=== PATIENT | male | born 1955 | race Caucasian/White ===

== ENCOUNTER 2016-06-24 17:38 | Inpatient (IN) | payer MEDICARE ==
[~2016-06-24] VITALS: Ht 172.7 cm; Wt 100.0 kg
[2016-06-24] VITALS (40 sets, daily range): BP systolic 102–204; BP diastolic 60–106; PULSE 104–118; RESP 12–23
[2016-06-24] MEDS ORDERED: ONDANSETRON 4 MG INJ IV STA (17:45)
[2016-06-24] MEDS ORDERED: morphine 4 MG/ML VIAL IV STA (17:45)
[2016-06-24] MEDS ORDERED: ONDANSETRON 4 MG INJ ONE ×2 (17:48→18:13)
[2016-06-24] MEDS ORDERED: morphine 4 MG/ML VIAL ONE (17:48)
[2016-06-24] MEDS ORDERED: LIDOCAINE 1% (MDV) 20 ML INJ ONE (17:56)
[2016-06-24] MEDS ORDERED: MIDAZOLAM 1 MG/ML 2 ML INJ ONE (17:56)
[2016-06-24] MEDS ORDERED: IODIXANOL LOCM 50 ML BTL ONE (17:56)
[2016-06-24] MEDS ORDERED: IODIXANOL LOCM 100 ML BTL ONE (17:56)
[2016-06-24] MEDS ORDERED: FENTAnyl 50 MCG/ML VIAL ONE ×2 (17:56→19:01)
[2016-06-24] MEDS ORDERED: NITROGLYCERIN (IC) 100 MCG/ML INJ ONE ×2 (17:56→18:45)
[2016-06-24] MEDS ORDERED: VERAPAMIL 5 MG INJ ONE (17:56)
[2016-06-24] MEDS ORDERED: HEPARIN 1000 UNITS/ML 10 ML INJ ONE (17:56)
[2016-06-24] MEDS ORDERED: NITR0.4T6 SL (17:56)
[2016-06-24] MEDS ORDERED: niCARdipine 25 MG INJ ONE (17:56)
[2016-06-24 17:57] LABS: ADD SCAN DIFF NO
[2016-06-24] MEDS ORDERED: RIVA20TA PO (17:57)
[2016-06-24] MEDS ORDERED: DIAZ10TA4 PO (17:57)
[2016-06-24 17:58] LABS: BASOPHIL # 0.1 10^3/ul (0.0-0.1); BASOPHILS % 0.5 % (0.0-2.0); EOSINOPHILS # 0.4 10^3/ul (0.0-0.5); EOSINOPHILS % 4.2 % (0.0-7.0); HEMATOCRIT 51.8 % (42.0-52.0); HEMOGLOBIN 17.9 g/dl (14.0-18.0); LYMPHOCYTES # 3.5 10^3/ul (0.8-2.9); LYMPHOCYTES % 34.3 % (15.0-51.0); MEAN CORPUSCULAR HEMOGLOBIN 31.9 pg (29.0-33.0); MEAN CORPUSCULAR HGB CONC 34.6 g/dl (32.0-37.0); MEAN CORPUSCULAR VOLUME 92.2 fl (82.0-101.0); MEAN PLATELET VOLUME 10.8 fl (7.4-10.4); MONOCYTE # 0.7 10^3/ul (0.3-0.9); MONOCYTES % 6.4 % (0.0-11.0); NEUTROPHIL # 5.5 10^3/ul (1.6-7.5); NEUTROPHILS % 53.9 % (39.0-77.0); PLATELET COUNT 155 10^3/UL (140-415); RED BLOOD COUNT 5.62 10^6/ul (4.70-6.10); RED CELL DISTRIBUTION WIDTH 13.2 % (11.5-14.5); WHITE BLOOD COUNT 10.2 10^3/ul (4.8-10.8)
[2016-06-24] MEDS ORDERED: ICOS1CAP PO (17:58)
[2016-06-24] MEDS ORDERED: SITA100T8 PO (17:58)
--- NOTE | 2016-06-24 17:58 | RADRPT ---
PROCEDURE: XR Chest. CLINICAL INDICATION: 60-year-old male with chest pain. TECHNIQUE: Single frontal view of the chest was obtained COMPARISON: No. FINDINGS: The soft tissues are normal. The bony elements are normal. The heart is mildly enlarged. A defibr illator pad is noted over the sternum. The cardiomediastinal silhouette and hilar structures are no rmal. The pulmonary vasculature is normal. There is a left-sided aorta. No acute infiltrate is noted . The costophrenic angles are normal. IMPRESSION: 1. Mild cardiomegaly. 2. No evidence of an acute infiltrate or pleural effusion. RPTAT:AAJJ Physician Martin Date Time Electronically viewed and signed by Kris Farooq Physician on 06/24/2016 17:57 /
[2016-06-24] MEDS ORDERED: CANA1TAB8 PO (17:59)
[2016-06-24] MEDS ORDERED: TRAM-40 PO (18:00)
[2016-06-24] MEDS ORDERED: ZOLP10TA5 PO (18:00)
[2016-06-24] MEDS ORDERED: HEPARIN 1000 UNITS/ML 10 ML INJ IV ONE (18:00)
[2016-06-24] MEDS ORDERED: DULA1.5P SQ (18:03)
--- NOTE | 2016-06-24 18:04 | ERA ---
ER Documentation Chief Complaint Date/Time DATE: 06/24/16 TIME: 17:56 Chief Complaint CP 1.5HR ONSET R SIDE AND SUBSTERNAL RADIATING TO BOTH ARMS. STEMI IN FIELD HPI The patient is a 60-year-old male, presenting to the ER because of severe right- sided and substernal chest pain radiating to bilateral extremities about an hour half prior to arrival. The pain is 10/10, he had minimal response with aspirin 325 mg p.o. and 3 nitroglycerin sprays by the director social service. He denies similar symptoms previously, denies headache, neck pain, abdominal pain, vomiting, dysuria, diarrhea. He smokes a pack a day Past medical history: Diabetes mellitus, hypertension Past surgical history: None ROS All systems reviewed and are negative except as per history of present illness. Physical Exam Vitals Vital Signs Date Time Temp Pulse Resp B/P Pulse Ox O2 Delivery O2 Flow Rate FiO2 06/24/16 17:53 106 17 161/98 100 Nasal Cannula 2.0 06/24/16 17:52 Nasal Cannula 2 06/24/16 17:44 97.9 92 21 172/97 94 Physical Exam Const: No acute distress. Head: Atraumatic. Eyes: Normal Conjunctiva. ENT: Normal External Ears, Nose and Mouth. Neck: Full range of motion. No meningismus. Resp: Clear to auscultation bilaterally. Cardio: Regular rate and rhythm, no murmurs. Abd: Soft, non distended, normal bowel sounds, non tender. Skin: No petechiae or rashes. Back: No midline or flank tenderness. Ext: No cyanosis, or edema. Neur: Awake and alert. No focal deficit Psych: Normal Mood and Affect. Results 24 hrs Current Medications Medications (Trade) Dose Ordered Sig/Mick Route PRN Reason Start Time Stop Time Status Last Admin Dose Admin Morphine Sulfate (morphine) 4 mg ONCE STAT IV 06/24/16 17:45 06/24/16 17:48 DC 06/24/16 17:53 Ondansetron HCl (Zofran Inj) 4 mg ONCE STAT IV 06/24/16 17:45 06/24/16 17:48 DC 06/24/16 17:53 Heparin Sodium (Porcine) (Heparin (1000 Units/ml)) 5,000 unit ONCE ONCE IV 06/24/16 18:00 4/3/17 18:01 Procedures/MDM EKG: Read by emergency physician at 1741 hrs. Rate/Rhythm: Normal Sinus Rhythm 97 beats/min QRS, ST, T-waves: Acute anterior ST elevation, right bundle branch block, no PVC Impression: Abnormal EKG MEDICAL MAKING DECISION: The patient is 60-year-old male, presenting with acute anterior OR. He was treated with with heparin 4000 units IV per cardiology, morphine 4 mg IV for pain, Zofran 4mg IV for nausea with good response. The differential diagnoses considered include but are not limited to acute coronary syndrome, acute myocardial infarction, pericarditis, pulmonary embolism, aortic dissection, pneumonia, pleural effusion, pneumothorax, GERD, chest wall pain. As soon as I receive the EKG from EMS, I activated a code STEMI immediately As soon as I review our EKG in the ER, Dr. Leon arrived. I discussed the patient and the EKG finding with him. He evaluated the patient and took the patient to to the Residential Driver immediately Critical Time Time: 35 minutes excluding all billable procedures. Treatments/Evaluations: Close monitoring and treatment of unstable vital signs, cardiorespiratory, and neurologic status, while maintaining tight balance of fluid, respiratory, and cardiac interventions. Departure Diagnosis: Primary Impression: Acute OR Condition: Critical Comments I discussed the findings with the patient. I discussed the patient with the on- call hospitalist Dr. Mendieta at 6 pm who was made aware of the lab, the treatment, the patient condition and my discussion with the clinical informatics physician. The patient is admitted to ICU after the Residential Driver LEILA FORMAN MD Jun 24, 2016 18:04
[2016-06-24 18:13] LABS: CHLORIDE 101 mmol/L (97-110)
[2016-06-24 18:14] LABS: POTASSIUM 4.5 mmol/L (3.5-5.1); SODIUM 141 mmol/L (135-144)
[2016-06-24 18:16] LABS: PARTIAL THROMBOPLASTIN TIME 24.5 Sec (25.0-35.0)
[2016-06-24 18:17] LABS: ANION GAP 22 (8-16); BLOOD UREA NITROGEN 36 mg/dl (7-20); CALCIUM 9.3 mg/dl (8.4-10.2); CARBON DIOXIDE 23 mmol/L (21-31); CREATININE 1.75 mg/dl (0.61-1.24); GLUCOSE 138 mg/dl (70-220)
[2016-06-24] MEDS ORDERED: BIVALIRUDIN 250MG /NS 50 ML 0 ML IVPB ONE (18:25)
[2016-06-24 18:34] LABS: INR 1.08; PT RATIO 1.1
[2016-06-24 18:35] LABS: TROPONIN-I < 0.012 ng/ml (0.00-0.12)
[2016-06-24] MEDS ORDERED: BIVALIRUDIN 250MG /NS 50 ML 50 ML IVPB ONE ×2 (18:52)
[2016-06-24] MEDS ORDERED: TICAGRELOR 90 MG TABLET ONE (19:05)
--- NOTE | 2016-06-24 19:18 | CONS ---
DATE OF ADMISSION: 06/24/2016 DATE OF CONSULTATION: 06/24/2016 REASON FOR CONSULTATION: ST elevation myocardial infarction. CHIEF COMPLAINT: Chest pain, all body pain. HISTORY OF PRESENT ILLNESS: Thank you for this referral. History obtained from the patient, radha james with Dr. Villarreal, emergency room physician. This is an unfortunate 60-year-old gentleman with his tory of diabetes, hypertension, dyslipidemia, smoker who apparently has had dyspnea on exertion for limited activity for a while now. The patient was brought in by paramedics after he complained of c hest pain, mostly on the right side, but also on the left side. He can take a deep breath. He will have difficulty breathing. EKG shows right bundle branch block with anterior ST elevation consiste nt with ST elevation myocardial infarction. Code STEMI was called. The patient at this point appea rs to be in severe distress and pain. PAST MEDICAL HISTORY: Diabetes, hypertension, dyslipidemia, history of smoking. SOCIAL HISTORY: The patient actively smokes. FAMILY HISTORY: Denies any history of early coronary artery disease. ALLERGIES: NO REPORTED ALLERGIES. MEDICATIONS: As per medication reconciliation sheet, personally reviewed. PHYSICAL EXAMINATION: VITAL SIGNS: Temperature 97.9, heart rate 106, blood pressure 160/90, respiration rate of 17, satur ating 100%. HEENT: Normocephalic, atraumatic. Appears to be in distress. EYES: Pupils are equal. CARDIOVASCULAR: Regular rate and rhythm. Systolic murmur. PULMONARY: Anteriorly mild rhonchi at the base. GASTROINTESTINAL: Soft, nontender. EXTREMITIES: Trivial edema. NEUROLOGIC: Awake and alert. PSYCHIATRIC: Calm, pleasant. LABORATORY: EKG shows sinus rhythm with right bundle branch block. ST elevation anteriorly consist ent with anterior ST elevation myocardial infarction. Reciprocal changes noted inferiorly. Laborat ory still pending. Chest x-ray has been done. This still pending, though. ASSESSMENT AND PLAN: 1. Acute anterior ST elevation myocardial infarction. 2. Diabetes. 3. Hypertension. 4. Dyslipidemia. 5. Smoker. 6. Abnormal EKG. RECOMMENDATIONS: The patient has been given aspirin, heparin. He will be taken emergently for the left heart catheterization, coronary angiography, possible percutaneous coronary intervention. ____ the procedure discussed with the patient including risk of infection, bleeding complication, NM, st roke, arrhythmia, , renal failure, and vascular complications, etc., discussed with the patient . The patient has consented to procedure. The patient was taken for immediate cardiac catheterizat ion. Further recommendation after the labs are back and more information is available. Dictated By: VANESSA GAVIN/SMITH Conf#: [id number] DID#: [id number]
[2016-06-24] MEDS ORDERED: SOD CHLORIDE 0.9% 1,000 ML IV SCH (19:25)
[2016-06-24] MEDS ORDERED: OXYCODONE/ACETAMINOPHEN (5/325) TAB PO PRN ×2 (19:30)
[2016-06-24] MEDS ORDERED: morphine 2 MG INJ IV PRN (19:30)
[2016-06-24] MEDS ORDERED: ACETYLCYSTEINE 600 MG CAP PO ONE (19:30)
[2016-06-24] MEDS ORDERED: BIVALIRUDIN 250 MG in SOD CHLORIDE 0.9% 500 ML IV SCH (19:30)
[2016-06-24] MEDS ORDERED: ACETAMINOPHEN 325 MG TAB PO PRN (19:30)
[2016-06-24] MEDS ORDERED: ACETYLCYSTEINE INJ 1,200 MG in SOD CHLORIDE 0.9% 100 ML IV SCH (20:00)
[2016-06-24] MEDS ORDERED: INSULIN LISPRO 100 UNIT/ML VIAL SC SCH (20:21)
--- NOTE | 2016-06-24 20:24 | HP ---
Date/Time of Note Date/Time of Note DATE: 06/24/16 TIME: 20:23 Assessment/Plan VTE Prophylaxis VTE Prophylaxis Intervention: contraindicated VTE Contraindication Reason: bleeding Lines/Catheters IV Catheter Type (from Nrsg): Saline Lock Assessment/Plan Assessment/Plan 1) Angina due to CAD causing STEMI while in the ER, s/p immediate Cardiac Catheterization, in the ICU, doing well - Already Admitted - formal procedure skipped as patient required emergent intervention - All Cardiac related orders have been and will be done by Dr. Leon 2) Diabetes Mellitus Type 2 - Accu-Chek Q 4 hours while NPO then change to Q AC and HS when taking POs. - Mild Insulin Sliding Scale - HgbA1c HPI/ROS Admit Date/Time Admit Date/Time 06/24/161953 Hx of Present Illness I was asked to admit patient by his glue cook, Dr. Leon, and to specifically manage his sugars becasue everything elsw was taken care of. Patient presented to the ED with CHest Pain. He was found to have a STEMI and was immediately taken to the Senior Publications Specialist. Per Dr. Leon, it was very difficult to get the LAD Open and he will take the patient back tomorrrow to do the right side. He is now in the ICU after spending time in the PACU. Patient denies any significant chest pain and the RNs are trying to pull out the catheter sheath in his right groin. Before they did, I reminded him that patient is supposed to go back to the Senior Publications Specialist tomorrow, but they agree that they have orders to remove the sheath. Currently patient is afebrile. He ahuja minimal nausea. No vomiting. Minimal chest discomfort. No radiation of pain. No sweating. No palpitations. No cough, wheeze or shortnessof breath. No AHUJA, ear pain/pressure, sore throat. No abdominal pain or diarrhea. No lower extremity swelling. No rash or itch. No blood in stool or urine. No black-colored stool. ROS See HPI for ROS PMH/Family/Social Past Medical History Medical History: diabetes, high cholesterol, hypertension Past Surgical History Heart Catheterization earlier today Social History Smoking Status: Current every day smoker Drug Use: none Exam/Review of Systems Vital Signs Vitals Vital Signs Date Time Temp Pulse Resp B/P Pulse Ox O2 Delivery O2 Flow Rate FiO2 06/24/16 17:53 106 17 161/98 100 Nasal Cannula 2.0 06/24/16 17:44 97.9 Exam Exam General: Laying flat in bed while the RNs work on removing the groin catheter sheath. He is awake and alert and in no acute distress, other than occasional pain while the catheter is worked on. Eyes: Sclera White, EOMI HENT: Normocephalic/Atraumatic, External Ears/Nose Normal, Moist Mucus Membranes Neck: Supple, Trachea Midline Cardiovascular: Normal Rate, Regular Rhythm, Normal S1 and S2, No Murmur, No Extra Sounds. Radial pulse +2/4. No pedal Edema. Pulmonary: Clear to Auscultation Bilaterally, Normal Respiratory Effort, No Rales, Rhonchi or Wheezes Gastrointestinal: Normoactive Bowel Sounds, Soft, Non-Tender/Non-Distended, No Hepatosplenomegaly Appreciated, No Pulsatile Masses Urogenital: Deferred Musculoskeletal: Normal Muscle Bulk and Tone Neurological: CN II - XII Grossly Intact, Non-Focal, Speech Normal Integumentary: Normal Moisture and Temperature, Good Turgor, No Jaundice, No Rash Lymphatic: No Cervical Lymphadenopathy Psychiatric: Appropriate Mood and Affect, Good Eye Contact Labs Result Diagram: 06/24/16 1746 06/24/16 1746 Medications Medications Current Medications Acetylcysteine/ Sodium Chloride (Acetadote/NS) 106 ml @ 0 mls/hr ONCE IV ; Start 06/24/16 at 20:00; Stop 06/24/16 at 23:33 Miscellaneous Information (* Miscellaneous Pharmacy Order) Hold all Metformin ... ONCE XX ; Start 06/24/16 at 19:30; Stop 06/26/16 at 19:29 Aspirin (Halfprin) 81 mg DAILY PO ; Start 06/25/16 at 09:00 Ticagrelor 90 mg 90 mg BID PO ; Start 06/24/16 at 21:00 Nitroglycerin/ Dextrose (Nitroglycerin 50 Mg/D5W (Pmx)) 250 ml @ 1.5 mls/hr TITRATE IV ; Start 06/24/16 at 19:30 Acetaminophen (Tylenol Tab) 650 mg Q4H PRN PO NON-CARDIAC PAIN LEVEL 1-3; Start 06/24/16 at 19:30 Oxycodone/ Acetaminophen (Percocet (5/ 325)) 1 tab Q4H PRN PO REPORTED NON- CARDIAC PAIN 4-7; Start 06/24/16 at 19:30 Oxycodone/ Acetaminophen (Percocet (5/ 325)) 2 tab Q4H PRN PO REPORTED NON- CARDIAC PAIN 4-7; Start 06/24/16 at 19:30 Morphine Sulfate (morphine) 1 mg Q1H PRN IV PAIN NOT RELIEVED BY OTHERS; Start 06/24/16 at 19:30 Docusate Sodium (Colace) 100 mg BID PO ; Start 06/24/16 at 21:00 Famotidine (Pepcid) 20 mg DAILY PO ; Start 06/25/16 at 09:00 Carvedilol (Coreg) 6.25 mg BID PO ; Start 06/24/16 at 21:00 Atorvastatin Calcium 80 mg 80 mg DAILY@21 PO ; Start 06/24/16 at 21:00 Sodium Chloride (NS) 1,000 ml @ 100 mls/hr Q10H IV ; Start 06/24/16 at 19:25; Stop 06/25/16 at 05:24 Acetylcysteine (Nac) 600 mg BID PO ; Start 06/25/16 at 09:00 DAVID RODAS DO Jun 24, 2016 20:24
[2016-06-24] MEDS: NITROGLYCERIN 50 MG/D5W (PMX) 250 ML IV SCH (22:01)
[2016-06-24] MEDS: ATORVASTATIN 80 MG TAB PO SCH (22:09)
[2016-06-24] MEDS: DOCUSATE SODIUM 100 MG CAP PO SCH (22:09)
[2016-06-24] MEDS: TICAGRELOR 90 MG TABLET PO SCH (22:33)
[2016-06-24] MEDS ORDERED: HEPARIN 5,000 UNIT/0.5 ML VIAL ONE (23:00)
[2016-06-24] MEDS ORDERED: GLUCOSE GEL 15 GRAM TUBE BUCCAL PRN (23:30)
[2016-06-24] MEDS ORDERED: GLUCOSE GEL 15 GRAM TUBE PO PRN ×2 (23:30)
[2016-06-24] MEDS ORDERED: DEXTROSE 50% 50 ML SYRINGE IV PRN ×2 (23:30)
[2016-06-24] MEDS ORDERED: GLUCAGON 1 MG INJ IM PRN (23:30)
[2016-06-25] VITALS (70 sets, daily range): BP systolic 78–151; BP diastolic 47–90; PULSE 78–106; RESP 7–33; Ht 172.7 cm; Wt 100.0 kg
[2016-06-25] MEDS ORDERED: BIVALIRUDIN 250MG /NS 50 ML 50 ML IVPB SCH
[2016-06-25 00:17] LABS: ALBUMIN 3.6 g/dl (3.3-4.9)
[2016-06-25 00:20] LABS: ALBUMIN/GLOBULIN RATIO 1.5; BILIRUBIN,INDIRECT 0.2 mg/dl (0-1.1); BILIRUBIN,TOTAL 0.2 mg/dl (0.2-1.3)
[2016-06-25 00:21] LABS: CALCIUM 8.4 mg/dl (8.4-10.2); CREATININE 1.36 mg/dl (0.61-1.24); POTASSIUM 5.6 mmol/L (3.5-5.1)
[2016-06-25] MEDS: ACCUCHECK AT 2AM (Patients on SS coverage) XX SCH (02:00)
[2016-06-25 06:24] LABS: ADD SCAN DIFF NO
[2016-06-25 06:36] LABS: BASOPHILS % 0.3 % (0.0-2.0); EOSINOPHILS # 0.3 10^3/ul (0.0-0.5); EOSINOPHILS % 2.1 % (0.0-7.0); HEMATOCRIT 48.7 % (42.0-52.0); HEMOGLOBIN 16.3 g/dl (14.0-18.0); LYMPHOCYTES # 2.6 10^3/ul (0.8-2.9); LYMPHOCYTES % 20.5 % (15.0-51.0); MEAN CORPUSCULAR HEMOGLOBIN 30.7 pg (29.0-33.0); MEAN CORPUSCULAR HGB CONC 33.5 g/dl (32.0-37.0); MEAN CORPUSCULAR VOLUME 91.7 fl (82.0-101.0); MEAN PLATELET VOLUME 10.4 fl (7.4-10.4); NEUTROPHIL # 8.6 10^3/ul (1.6-7.5); NEUTROPHILS % 68.4 % (39.0-77.0); PLATELET COUNT 147 10^3/UL (140-415); RED BLOOD COUNT 5.31 10^6/ul (4.70-6.10); RED CELL DISTRIBUTION WIDTH 13.3 % (11.5-14.5); WHITE BLOOD COUNT 12.5 10^3/ul (4.8-10.8)
[2016-06-25 06:53] LABS: INR 1.17; PT RATIO 1.2
--- NOTE | 2016-06-25 07:24 | PN ---
DATE: 06/24/2016 FOLLOWUP PROGRESS NOTE SUBJECTIVE: The patient was seen and examined again, has had oozing and bleeding into the right nader e sheath. Blood pressure is elevated. Nitroglycerin drip has not been started yet. Discussed with the staff in the PACU. Laboratories were reviewed. Discussed with the physicians and conducted ap pendectomy and Dr. Adair and Dr. Ludmila Ramos. RECOMMENDATIONS: We will continue with the ICU care. Will stop the ____ given his groin oozing. I V fluid will be continued. Follow the renal function and plan for possible cardiac catheterization and PCI of the right coronary artery tomorrow. Continue with aspirin and Brilinta. Dictated By: VANESSA GAVIN/SMITH Conf#: [id number] DID#: [id number]
--- NOTE | 2016-06-25 07:25 | SP ---
DATE OF PROCEDURE: 06/24/2016 NAME OF PROCEDURE: 1. Emergent left heart catheterization and selective right and left coronary angiography. 2. Emergent and extremely complicated PTCA and stenting of the ostial left anterior descending simran ry from 100% occlusion to no significant residual stenosis. 3. Right femoral angiogram. SURGEON: Vanessa Leon MD INDICATIONS: A 60-year-old gentleman who presented with anterior ST elevation myocardial infarction . FINDINGS: 1. Left main coronary is a very large vessel. It trifurcates to LAD, ramus intermediate, and left circumflex artery. It has about 20% distal stenosis. 2. Left anterior descending artery is 100% occlusion ostially/proximally. After successful PTCA an d stenting of this lesion, there was no significant residual stenosis left. LAD was a small vessel relatively. 3. Ramus intermedius is a large vessel and appeared to be normal. 4. Left circumflex artery is a moderate sized vessel and has about 50% stenosis. 5. Right coronary is a very large, dominant vessel. Has focal area of about 99% mid lesion with stein ziness consistent with intraluminal clot there. REMY 3 flow was noted though. 6. LVEDP is 22. DESCRIPTION OF PROCEDURE: Written informed consent was discussed with the patient in detail. The p atient brought in to vp lab emergently and placed in supine position. Right and left groin preppe d and draped in sterile fashion. Right groin was anesthetized ____ 7-Turkmen sheath was placed in th e right femoral artery. JR4 catheter was advanced and engaged in the right coronary artery and jayant ogram was obtained. JL4 and 7-Turkmen guiding catheter was advanced and engaged in the left main cor onary artery. Angiogram was obtained. I decided to proceed and perform PCI of the LAD, which appea red to be based on the EKG culprit lesion. I tried multiple wires to advance and cross it. It was a very sharp angulation on the LAD and would not allow the wire to pass into the lesion and, once in to the lesion because of the angulation of the wire, could not allow to pass across the lesion. I u sed multiple different wires including with and without balloon support as well. Even [employer] huong ter support could not cross the lesion. Had to change the guide to a 7-Turkmen ____ L4 guiding huong ter was advanced in the left main coronary artery. Different wires were used. Finally, I used the ____ catheter and a Agricultural Equipment Salesperson wire and, with great difficulty, was able to cross into the lesion and acr oss the lesion into the distal LAD. Then, a 2.5 x 8 mm balloon was used across the lesion, inflated . ____ tried to advance, however, since the wire had been bent, it could not get across over the wi re. It was removed and a 2.5 x 12 mm balloon was placed across the lesion, multiple inflated. Cherri paulson, I used a 3.0 x 20 mm drug-eluting stent, which was placed across the ostium of the left anterio r descending artery into the proximal LAD and deployed it at 14 atmospheres. Final angiogram was ob tained, which showed REMY 3 flow, no evidence of dissection, no significant residual stenosis. The patient was severely in pain. His pain also significantly improved. We decided to perform PCI of t he RCA at a later time, since it was not felt to be the culprit lesion and the patient's creatinine is elevated. Catheter and Glidewire were removed. Pigtail was advanced in the left main, hemodynam ics recorded. Pullback aortic pressure was measured. Right femoral angiogram was performed. IMMEDIATE COMPLICATIONS: None. CONCLUSION: A very complicated, but successful percutaneous transluminal coronary angioplasty and s tenting of the ostium of left anterior descending artery from 100% occlusion to no significant resid ual stenosis. RECOMMENDATIONS: Aggressive medical therapy. PCI of the RCA tomorrow if the renal function remains stable. ICU care overnight. Dictated By: VANESSA LEON MD AV/SMITH Conf#: [id number] DID#: [id number] CC: LEILA FORMAN MD;*EndCC*
[2016-06-25] MEDS: INSULIN ASPART [NOVOLOG] 3 ML PEN SC SCH ×5 (07:35→21:00)
[2016-06-25 07:43] LABS: ALBUMIN 3.5 g/dl (3.3-4.9)
[2016-06-25 07:44] LABS: POTASSIUM 4.9 mmol/L (3.5-5.1)
[2016-06-25 07:47] LABS: ALBUMIN/GLOBULIN RATIO 1.66; BILIRUBIN,INDIRECT 0.5 mg/dl (0-1.1); BILIRUBIN,TOTAL 0.5 mg/dl (0.2-1.3); CALCIUM 8.5 mg/dl (8.4-10.2); CREATININE 1.42 mg/dl (0.61-1.24); TOTAL PROTEIN 5.6 g/dl (6.1-8.1)
[2016-06-25 07:48] LABS: CHOL/HDL RATIO 3.2 RATIO
[2016-06-25 08:14] LABS: THYROID STIMULATING HORMONE 1.75 MIU/L (0.465-4.680)
[2016-06-25] MEDS: ACETYLCYSTEINE 600 MG CAP PO SCH ×2 (08:49→21:14)
[2016-06-25] MEDS: ASPIRIN (EC) 81 MG TAB PO SCH (08:50)
[2016-06-25] MEDS: DOCUSATE SODIUM 100 MG CAP PO SCH ×2 (08:50→21:14)
[2016-06-25] MEDS: FAMOTIDINE 20 MG TAB PO SCH (08:50)
[2016-06-25] MEDS: TICAGRELOR 90 MG TABLET PO SCH ×2 (08:56→23:05)
--- NOTE | 2016-06-25 09:04 | CONS ---
DATE OF ADMISSION: 06/25/2016 DATE OF CONSULTATION: TYPE OF CONSULTATION: Nephrology. REASON FOR CONSULTATION: Acute kidney injury, possible CKD. REQUESTING PHYSICIAN: Dr. Leon HISTORY OF PRESENT ILLNESS: This is a 60-year-old male with a past medical history of hypertension, history of diabetes, history of tobacco use who presents to [facility] with chest pain, substernal with radiating to both arms. The patient upon admission stated that he has had se paz right-sided chest pain for about half an hour, 12/31. Patient was brought in by paramedics, wa s given nitroglycerin, aspirin; however, denied any significant improvement. [facility] an E[facility] which showed acute anterior NH. Patient had a code STEMI initiated, was take n to cardiac catheterization lab by Dr. Leon where the patient had a PCI to the LAD. The patient was subsequently brought over to the intensive care unit for observation. Overnight, the patient stein d been clinically stable without any hemoptysis, hemetemesis, hematochezia. In terms of the patient's renal history, the patient states he has no prior history of kidney diseas e, or previous history of acute kidney injury. The patient is a diabetic, hypertensive, does smoke. The patient has not had any recent blood work done. The patient denies any recent NSAID use. Diallo es any recent antibiotic exposure. Denies any rashes. Denies any frothy urine. Denies any hemopty sis, hematochezia. PAST MEDICAL HISTORY: As stated above, history of hypertension, diabetes. PAST SURGICAL HISTORY: The patient has had back surgery. ALLERGIES: NO KNOWN DRUG ALLERGIES. SOCIAL HISTORY: Positive 1 pack a day smoking. FAMILY HISTORY: Noncontributory. MEDICATIONS: The patient's medications have been reviewed. REVIEW OF SYSTEMS: A 14-point review of systems was conducted. Pertinent positives in HPI, otherwi se negative. PHYSICAL EXAMINATION: VITAL SIGNS: Blood pressure is 146/87, respiration is 25, pulse 89, temperature 98.4. HEENT: Head is normocephalic. NECK: Supple. HEART: Regular rate. LUNGS: Show diminished breath sounds at the base. ABDOMEN: Soft, nontender to palpation without rebound or guarding. EXTREMITIES: Negative for clubbing, cyanosis, no edema. The patient has a brace in his right lower extremity. DERMATOLOGIC: No rashes. MUSCULOSKELETAL: No joint effusions. NEUROLOGIC: No change in exam. LABORATORY DATA: From June 24 shows sodium 133, potassium of 5.6, BUN 33, creatinine 1.36. Troponi n 165. White count 12.5, hemoglobin 6.3, hematocrit 48.7, platelet count 147. IMAGING STUDIES: The patient's chest x-ray shows no evidence of infiltrate or effusion. ASSESSMENT AND PLAN: This is a 60-year-old male who presents with: 1. Nonoliguric acute kidney injury with unknown baseline creatinine. Possible chronic kidney disea se. Etiology of current acute kidney injury appears to be hemodynamics. Patient's renal function h as improved with hydration. Plan at this point is to check a UA with microanalysis. Will check uri ne electrolytes, calculate a FENa, will check a renal ultrasound to evaluate renal parenchyma. The p ossibility of contrast-associated nephropathy is a consideration, as patient has undergone cardiac c atheterization and will likely require a repeat catheterization. Given the necessity of interventio n would continue current treatment plan of IV hydration. Continue Mucomyst. Otherwise, optimize he modynamics. Would defer any ANDRÉS inhibitor at this time. We will continue supportive care, renally dose all meds. 2. Possible chronic kidney disease. The patient is currently in acute kidney injury as stated daniel e. Plan is to check a renal ultrasound. We will quantify the patient's proteinuria. Will check PT H, vitamin D25 level. Otherwise, continue current treatment plan as stated above. 3. Hyperkalemia, etiology may be spurious versus acute kidney injury. We will repeat a renal panel and monitor, continue the patient on a renal diet. 4. Hyponatremia secondary to acute kidney injury causing decreased free water urinary excretion. W ill continue to monitor. Follow up renal panel. Limit free water intake. 5. Acute anterior ST elevation NH. The patient is status post cardiac catheterization with PCI to LAD. Pending repeat cardiac catheterization. We will continue current medical management and follo w up with cardiology. 6. Diabetes. Continue Accu-Cheks and sliding scale. 7. Hypertension. Blood pressure currently controlled. Continue current blood pressure regimen. 8. Dyslipidemia. Continue statin therapy. 9. History of tobacco use. Consider nicotine patch. 10. Leukocytosis, likely secondary to stress demargination. Thank you, Dr. Leon, for this very interesting consult. It will be a pleasure to follow patient w ith you throughout the hospital course. Dictated By: FROYLAN VALADEZ/SMITH Conf#: [id number] DID#: [id number]
--- NOTE | 2016-06-25 09:07 | RADRPT ---
PROCEDURE: Retroperitoneal US. CLINICAL INDICATION: Renal insufficiency TECHNIQUE: Multiple sonographic images of the kidneys and retroperitoneum were obtained. The imag es were reviewed on a PACS workstation. COMPARISON: No prior studies are available for comparison. FINDINGS: The kidneys are normal in size, contour, cortical thickness and cortical echogenicity. The right kidney measures 12 cm. The left kidney measures 12.2 cm. No kidney stones are visualized. There is no evidence for hydronephrosis. The urinary bladder is normal. The prostate measures 3.9 x 3.9 cm. RPTAT: AA IMPRESSION: Unremarkable retroperitoneal ultrasound. .Edgar Christie MD, MD Date Time Electronically viewed and signed by .Edgar Christie MD, MD on 06/25/2016 09:07 .S/
--- NOTE | 2016-06-25 11:17 | RADRPT ---
Echocardiogram Report Patient Name: MARTA FLEMING Gender: Male Date: 1955 Study Date: 25-Jun-2016 Payroll Processor: Caitlin Hoyt RDCS Location: 116 Ref. Physician: VANESSA LEON Quality: Adequate Procedures: Transthoracic echocardiogram with complete 2D, M-Mode, and doppler examination. Indications: STEMI. 2D/M Mode Doppler Measurement Value Normal Ranges Measurement Value Normal Ranges LVIDd 2D 5.3 3.5 - 5.6 cm AV Peak Silver 1.0 m/sec LVIDs 2D 3.6 2.1 - 4.1 cm AV Peak PG 3.9 mmHg LVPWd 2D 0.8 0.6 - 1.1 cm LVOT Peak Silver 0.9 m/sec IVSd 2D 1.0 0.6 - 1.1 cm LVOT Peak PG 3.2 mmHg AoR Diam 2D 3.2 2.0 - 3.7 cm MV E Peak Silver 0.7 m/sec EDV 2D 134.3 cm3 MV A Peak Silver 0.9 m/sec ESV 2D 46.6 cm3 MV E/A 0.8 LA Dimen 2D 3.4 2.3 - 4.0 cm MV Decel Time 184 msec MV Decel [place] 4 MV E/A 0.8 Findings Left Ventricle: Normal left ventricular cavity size. Normal left ventricular wall thickness. Ejection fraction is visually estimated at 40 45 %. Tissue Doppler/Mitral Doppler indices are consistent with impaired relaxation (Stage I diastolic dysfunction). Multiple segmental wall motion abnormalities. These segments of the LV are hypokinetic mid anterior segment, anterior apex segment, anteroseptum mid segment, apex and apical septum. Right Ventricle: Normal right ventricular size. Normal right ventricular systolic function. Left Atrium: The left atrium is normal in size. Right Atrium: The right atrium is normal in size. Mitral Valve: Mitral valve leaflets appear mildly thickened. Mild mitral annular calcification. Trace mitral regurgitation. Aortic Valve: Normal appearance of the aortic valve. No significant aortic stenosis or insufficiency. Tricuspid Valve: Normal appearance of the tricuspid valve. Unable to obtain RVSP due to minimal presence of tricuspid regurgitation. Pulmonic Valve: Pulmonic valve not well visualized. Pericardium: Normal pericardium with no significant pericardial effusion. Aorta: Normal aortic root. IVC: Normal size and normal respiratory collapse consistent with normal right atrial pressure. Conclusions 1.Normal left ventricular cavity size. Normal left ventricular wall thickness. Ejection fraction is visually estimated at 40 -45 %. Tissue Doppler/Mitral Doppler indices are consistent with impaired relaxation (Stage I diastolic dysfunction). Multiple segmental wall motion abnormalities. These segments of the LV are hypokinetic mid anterior segment, anterior apex segment, anteroseptum mid segment, apex. and apical septum. 2.The left atrium is normal in size. 3.Mitral valve leaflets appear mildly thickened. Mild mitral annular calcification. Trace mitral regurgitation. 4.Normal appearance of the aortic valve. No significant aortic stenosis or insufficiency. 5.Normal appearance of the tricuspid valve. Unable to obtain RVSP due to minimal presence of tricuspid regurgitation. 6.Normal size and normal respiratory collapse consistent with normal right atrial pressure. Electronically Signed By: Vanessa Leon 25-Jun-2016 11:16:22 -0700 Patient Name: MARTA FLEMING Study Date: 25-Jun-2016 [id number]
--- NOTE | 2016-06-25 12:45 | PN ---
DATE: 06/25/2016 CARDIOLOGY FOLLOWUP PROGRESS NOTE SUBJECTIVE: Discussed with the staff, the patient with no more chest pain or pressure. Denies any groin pain. Had some oozing yesterday, has resolved now. The sheath has been pulled. She denies a ny palpitation to me. Feeling better. She has mild shortness of breath and cough. MEDICATIONS: Reviewed. PHYSICAL EXAMINATION: VITAL SIGNS: Temperature 97.9, heart rate of 89, blood pressure 134/83, respiration rate of 24, sat urating 97%. HEENT: Normocephalic, atraumatic. Obese gentleman. Pupils are equal. CARDIOVASCULAR: Regular rate and rhythm, systolic murmur. PULMONARY: Mild rhonchi. GASTROINTESTINAL: Obese, soft, nontender. EXTREMITIES: With trivial edema. NEUROLOGIC: Awake, alert x3. PSYCHIATRIC: Calm, pleasant. VASCULAR: Right femoral with no hematoma, no bleeding. Small ecchymosis noted. PSYCHIATRIC: Calm, pleasant. LABORATORY: WBC of 12.5, hemoglobin 16.3, platelets of 147. Sodium 136, potassium 4.9, BUN of 30, creatinine 1.42, glucose 148. Troponin of 149. CK of 47, MB fraction of 103. BNP of 1330. TSH is 1.7. LDL is 87, HDL 48, cholesterol 158. Echocardiogram was also personally reviewed, which showed ejection fraction about 40% to 45%. ASSESSMENT AND PLAN: 1. Acute anterior ST elevation myocardial infarction. 2. Diabetes. 3. Hypertension. 4. Dyslipidemia. 5. Tobacco abuse. 6. Multivessel coronary artery disease. 7. Renal insufficiency. RECOMMENDATIONS: None of the renal function has improved. We will proceed with a cardiac catheteri zation and PCI of the right coronary artery which appeared to show significant stenosis. Discussed with the patient. Patient has consented to procedure. Medication including aspirin, Brilinta, Muco myst will be continued. Nitroglycerin drip will be continued. Coreg will be continued. Statin zayra l be continued. Diabetic management as per internal medicine. Renal input is appreciated. Mucomys t will be continued for now. Continue with the ICU care for now. Dictated By: VANESSA DÍAZ MD AV/SMITH Conf#: [id number] DID#: [id number] CC: FROYLAN GOULD DO;*EndCC*
[2016-06-25 13:37] LABS: ADD UMIC YES; URINE BILIRUBIN (Dip) NEGATIVE (NEGATIVE); URINE BLOOD (Dip) 1+ (NEGATIVE); URINE COLOR LT. YELLOW (YELLOW); URINE GLUCOSE (Dip) >=1000 % (NEGATIVE); URINE KETONES (Dip) NEGATIVE (NEGATIVE); URINE LEUKOCYTE ESTERASE (Dip) NEGATIVE (NEGATIVE); URINE NITRITE (Dip) NEGATIVE (NEGATIVE); URINE TOTAL PROTEIN (Dip) TRACE (NEGATIVE); URINE UROBILINOGEN (Dip) 0.2 E.U./dL (0.1-1.0)
[2016-06-25 13:54] LABS: URINE RBCS 0-2 /HPF (0)
[2016-06-25 13:57] LABS: PROTEIN URINE 50.3 mg/dl (0.0-9.9)
[2016-06-25] MEDS ORDERED: SOD CHLORIDE 0.9% 1,000 ML IV SCH ×2 (14:00→17:58)
[2016-06-25] MEDS: NITROGLYCERIN 50 MG/D5W (PMX) 250 ML IV SCH (14:02)
[2016-06-25] MEDS ORDERED: IODIXANOL LOCM 100 ML BTL ONE (17:11)
[2016-06-25] MEDS ORDERED: IODIXANOL LOCM 50 ML BTL ONE (17:11)
[2016-06-25] MEDS ORDERED: FENTAnyl 50 MCG/ML VIAL ONE ×2 (17:11→17:23)
[2016-06-25] MEDS ORDERED: LIDOCAINE 1% (MDV) 20 ML INJ ONE (17:11)
[2016-06-25] MEDS ORDERED: MIDAZOLAM 1 MG/ML 2 ML INJ ONE (17:11)
[2016-06-25] MEDS ORDERED: VERAPAMIL 5 MG INJ ONE (17:11)
[2016-06-25] MEDS ORDERED: HEPARIN 1000 UNITS/ML 10 ML INJ ONE (17:11)
[2016-06-25] MEDS ORDERED: NITROGLYCERIN (IC) 100 MCG/ML INJ ONE (17:12)
[2016-06-25] MEDS ORDERED: SOD CHLORIDE 0.9% 500 ML ONE (17:12)
[2016-06-25] MEDS: ATORVASTATIN 80 MG TAB PO SCH (21:14)
[2016-06-26] VITALS (24 sets, daily range): BP systolic 86–162; BP diastolic 30–105; PULSE 79–108; RESP 17–34
[2016-06-26] MEDS: ACCUCHECK AT 2AM (Patients on SS coverage) XX SCH (02:32)
[2016-06-26] MEDS ORDERED: SOD CHLORIDE 0.9% 1,000 ML IV SCH (03:00)
[2016-06-26 04:58] LABS: ADD SCAN DIFF NO
[2016-06-26 05:05] LABS: BASOPHIL # 0.1 10^3/ul (0.0-0.1); BASOPHILS % 0.5 % (0.0-2.0); EOSINOPHILS # 0.6 10^3/ul (0.0-0.5); EOSINOPHILS % 5.1 % (0.0-7.0); HEMATOCRIT 46.9 % (42.0-52.0); HEMOGLOBIN 15.7 g/dl (14.0-18.0); LYMPHOCYTES # 2.7 10^3/ul (0.8-2.9); LYMPHOCYTES % 24.7 % (15.0-51.0); MEAN CORPUSCULAR HGB CONC 33.5 g/dl (32.0-37.0); MEAN CORPUSCULAR VOLUME 92.5 fl (82.0-101.0); MEAN PLATELET VOLUME 10.7 fl (7.4-10.4); MONOCYTE # 0.9 10^3/ul (0.3-0.9); MONOCYTES % 8.4 % (0.0-11.0); NEUTROPHIL # 6.6 10^3/ul (1.6-7.5); NEUTROPHILS % 60.7 % (39.0-77.0); PLATELET COUNT 134 10^3/UL (140-415); RED BLOOD COUNT 5.07 10^6/ul (4.70-6.10); RED CELL DISTRIBUTION WIDTH 13.3 % (11.5-14.5); WHITE BLOOD COUNT 10.9 10^3/ul (4.8-10.8)
[2016-06-26 05:25] LABS: ALBUMIN 3.7 g/dl (3.3-4.9)
[2016-06-26 05:26] LABS: MAGNESIUM 1.9 mg/dl (1.7-2.5); PHOSPHORUS 3.2 mg/dl (2.5-4.9); POTASSIUM 4.7 mmol/L (3.5-5.1)
[2016-06-26 05:28] LABS: ALBUMIN/GLOBULIN RATIO 1.68; BILIRUBIN,INDIRECT 0.6 mg/dl (0-1.1); BILIRUBIN,TOTAL 0.6 mg/dl (0.2-1.3); CREATININE 1.25 mg/dl (0.61-1.24); TOTAL PROTEIN 5.9 g/dl (6.1-8.1)
[2016-06-26 05:29] LABS: CALCIUM 9.1 mg/dl (8.4-10.2)
[2016-06-26 05:58] LABS: CK-MB 9.29 ng/ml (0.0-2.4); TROPONIN-I 29.4 ng/ml (0.00-0.12)
--- NOTE | 2016-06-26 06:56 | SP ---
DATE OF PROCEDURE: 06/25/2016 NAME OF PROCEDURE: 1. Selective right coronary angiography. 2. Successful PTCA, stent and thrombectomy of the right coronary artery using 4.0 x 20 mm Synergy d rug-eluting stent, post dilating with a 4.5 balloon. REAL ESTATE COORDINATOR: Vanessa Leon MD INDICATIONS: The patient is a 60-year-old gentleman who presented with anterior ST elevation myocar dial infarction yesterday, underwent PCI of the 100% occlusion of the LAD. He was also noted to hav e right coronary artery lesion 99% with evidence of intraluminal thrombus. It was decided to stage the procedure and bring him back today once his renal function improves. The patient was brought ba ck today for PCI of the right coronary artery. DESCRIPTION OF PROCEDURE: Written informed consent was obtained. The risks and benefits were discu ssed with the patient in detail. Risks included infection, vascular complication, bleeding complica tion, MT, stroke, arrhythmia, , renal failure, etc., discussed with the patient . Radial area was prepped and draped in sterile fashion. He was anesthetized with 1% lidocaine. Using ultra sound, the left radial artery was cannulated. Wire was advanced. Using Seldinger technique, a 6-Fr ench sheath was placed in left radial artery. Arterial flow was noted. Then, I used an AR1 cathete r, was advanced and engaged in the right coronary artery and angiogram was obtained. BMW wire was a cross the lesion. Pronto was used and thrombectomy was done. Angiogram was obtained. Then, balloon was placed across the lesion, inflated. Angiogram was obtained. Then, I used a 4.0 x 20 mm Synergy drug-eluting stent the lesion, deployed it at 16 atmospheres. Angiogram was obtained . Finally, the stent was postdilated at 4.5 balloon. Catheter and Glidewire were removed. TR band was applied. IMMEDIATE COMPLICATIONS: None. CONCLUSION: Successful percutaneous transluminal coronary angioplasty stent thrombectomy of the rig ht coronary artery. TOTAL CONTRAST USED: 35 mL. RECOMMENDATIONS: Aggressive medical therapy. Aspirin indefinitely. Brilinta with minimum next 1 y ear. ICU care overnight. Dictated By: VANESSA GAVIN/SMITH Conf#: [id number] [facility]#: [id number]
[2016-06-26] MEDS: INSULIN ASPART [NOVOLOG] 3 ML PEN SC SCH ×4 (07:35→21:00)
[2016-06-26] MEDS: DOCUSATE SODIUM 100 MG CAP PO SCH ×2 (08:44→21:17)
[2016-06-26] MEDS: ACETYLCYSTEINE 600 MG CAP PO SCH ×2 (08:44→21:00)
[2016-06-26] MEDS: FAMOTIDINE 20 MG TAB PO SCH (08:45)
[2016-06-26] MEDS: TICAGRELOR 90 MG TABLET PO SCH ×2 (08:45→21:00)
[2016-06-26] MEDS: ASPIRIN (EC) 81 MG TAB PO SCH (08:46)
--- NOTE | 2016-06-26 08:55 | PN ---
DATE: 06/26/2016 SUBJECTIVE: The patient underwent cardiac catheterization yesterday with a PCI to the RCA, tolerate d well. Overnight, the patient remains clinically stable. No hemoptysis, hematemesis or hematochez ia. OBJECTIVE: VITAL SIGNS: Blood pressure 138/91, respirations 20, pulse 90, temperature 99.0. HEENT: Head is normocephalic. NECK: Supple. HEART: Regular rate. LUNGS: Show diminished breath sounds at the base. ABDOMEN: Soft, nontender to palpation without rebound or guarding. EXTREMITIES: Negative for clubbing, cyanosis, no edema. DERMATOLOGIC: No rashes. MUSCULOSKELETAL: No joint effusions. NEUROLOGIC: No change in exam. MEDICATIONS: The patient's medications have been reviewed. LABORATORY DATA: Showed sodium 137, potassium 4.7, chloride 105, BUN 23, creatinine 1.25. White co unt 10.9, hemoglobin 15.7, hematocrit 46.9, platelet count 134. Urinalysis shows a protein creatini ne ratio approximately 1.2 grams per gram of creatinine. Renal ultrasound is otherwise benign. ASSESSMENT AND PLAN: 1. Nonoliguric acute kidney injury with unknown baseline creatinine, possible chronic kidney diseas e. Etiology of current acute kidney injury was secondary to hemodynamics. Renal function has improv ed with IV hydration. The patient at this point shows no evidence of contrast-associated nephropath y. At this point, will continue to monitor. Continue supportive care, renally dose medications, av oid nephrotoxins. Will discontinue IV fluids as the patient is volume replete. Would defer ANDRÉS inhi bitor at this time and monitor closely. 2. Chronic kidney disease likely secondary to underlying diabetes, questionable hypertensive nephro sclerosis. The patient's urine protein creatinine ratio is approximately 1 gram per gram of creatin ine. This is likely as stated above, due to diabetes. At this point, we will continue to treat acu te kidney injury. Would otherwise continue good glycemic and blood pressure control. 3. Hyperkalemia. Etiology is likely spurious. Will continue to monitor since resolved. 4. Hyponatremia secondary to acute kidney injury, resolved. Continue to monitor. 5. Acute anterior ST elevation [place]. The patient is status post cardiac catheterization with PCI to the LAD and RCA. We will continue current medical management. Follow up with Cardiology. 6. Diabetes, continue Accu-Cheks and sliding scale. 7. Hypertension. Continue current blood pressure regimen. 8. Dyslipidemia. Continue statin therapy. 9. History of tobacco abuse. 10. Leukocytosis, etiology is likely secondary to acute myocardial infarction with demargination. The patient's leukocytosis is improving. Continue to monitor. Dictated By: FROYLAN VALADEZ/SMITH Conf#: [id number] DID#: [id number]
[2016-06-26] MEDS ORDERED: FUROSEMIDE 20 MG INJ IV ONE (09:30)
[2016-06-26] MEDS ORDERED: FUROSEMIDE 20 MG INJ IM ONE (09:30)
--- NOTE | 2016-06-26 09:42 | EN ---
Date/Time of Note Date/Time of Note DATE: 06/26/16 TIME: 09:37 Event Note Medicine Medicine Event Note LATE PROGRESS NOTE DATE OF SERVICE: 06/25/16 SUBJECTIVE: NO new complaints, lethargic, planned for repeat Cath today OBJECTIVE: PHYSICAL EXAMINATION: VITAL SIGNS: Blood pressure is 146/87, respiration is 25, pulse 89, temperature 98.4. GENERAL: Patient is alert, oriented x 3, in no apparent distress; does not appear acutely or chronically ill. Patient is able to sit up unassisted.Patient makes good eye contact, is conversant, interactive, coherent. Patient appears calm and comfortable and is able to follow commands. HEENT: Oropharynx is clear. There is no carotid bruit, no masses. Patient's pupils are equal, round and reactive to light bilaterally. Extraocular motions are intact. There is no scleral icterus. There is no facial asymmetry. NECK: Supple. LUNGS: Clear to auscultation bilaterally with good air entry. No Wheezes or crackles. HEART: S1, S2. No murmur, gallops or rubs. Regular rate and rhythm. ABDOMEN: Soft, nontender. Normoactive bowel sounds. There are no stigmata of chronic liver disease. BACK: no costovertebral angle tenderness. GENITOURINARY: Deferred. EXTREMITIES: No edema. There is no cyanosis, clubbing. There are 2+ pulses bilaterally distally. Brace R LE NEUROLOGIC: The patient has no lateralizing signs. Cranial nerves II-XII are intact. SKIN: Otherwise, unremarkable. LABS AND IMAGING: LABORATORY DATA: From June 24 shows sodium 133, potassium of 5.6, BUN 33, creatinine 1.36. Troponin 165. White count 12.5, hemoglobin 6.3, hematocrit 48.7, platelet count 147. IMAGING STUDIES: The patient's chest x-ray shows no evidence of infiltrate or effusion. ASSESSMENT:ASSESSMENT AND PLAN: 1. Acute anterior ST elevation myocardial infarction. Planned for cardiac catheterization and PCI of the right coronary artery today 2. Diabetes type 2 : good inhouse control 3. Hypertension: controlled 4. Dyslipidemia. 5. Tobacco abuse. 6. Multivessel coronary artery disease. 7. Acute Renal insufficiency on CKD PLAN: * R heart cath today * Continue icu supportive care and mgt * Serial labs * Appreciate all consults CRITICAL CARE TIME: >35 mins JG HERNÁNDEZ Jun 26, 2016 09:42
--- NOTE | 2016-06-26 10:29 | CONS ---
Date/Time of Note Date/Time of Note DATE: 06/26/16 TIME: 10:22 Assessment/Plan Assessment/Plan Additional Assessment/Plan Chest x-ray was reviewed from start of this month which is showing mild perivascular congestion. Assessment recommendations; next 1. Patient admitted for acute NC underwent emergent PTCA of LAD with stenting. 2. Possibly some element of cardiomyopathy. 3. History of diabetes. 4. Remote history of right lung cancer status post what appears to be a segmental resection followed by chemotherapy or any evidence of recurrence. 5. Possibly underlying sleep apnea. Continue current treatment. Patient responding well to current treatment regimen. On an outpatient basis he will likely need to have a sleep study done to rule out sleep apnea. Consultation Date/Type/Reason Admit Date/Time 06/24/161953 Date of Consultation: Jun 26, 2016 Type of Consultation: Pulmonary/critical care Reason for Consultation Pulmonary consultations requested for evaluation of shortness of breath. Patient admitted for acute NC. History of presenting illness; patient is a pleasant 60-year-old white male who came into the emergency room day before yesterday with complaint of acute onset of shortness of breath and chest pain the patient was diagnosed with acute anterior NC and underwent emergent coronary angiography with stenting of LAD. The patient has since been admitted to ICU and according to him he is significantly improved overall. Denies any further chest pains to come to the very mild shortness of breath upon exertion. Denies any coughing, wheezing, sputum production. Past medical history; 1. History of hypertension, # 2. Hyperlipidemia. 3. Diabetes. 4. Possibly some element of COPD. 5. History of right lung cancer in 2008 status post what appears to be segmental resection followed by chemotherapy. Medications; were reviewed. Allergies; are none. Social history; patient smokes about pack a day. No swelling or drug abuse. Family history; , he has 3 children. Various family members of hypertension and coronary artery disease. Occupational history; patient is gem stone either. Review of systems; denies any headache, visual changes. Denies any seizures. Any sinus symptoms. Does complain of chronic mild dyspnea on exertion. Has any wheezing. Any further chest pain. Any coughing hemoptysis sputum production. Denies any abdominal pain, nausea vomiting. Denies any edema, any GI or urinary symptoms. Does complain of snoring off and on. With excessive daytime sleepiness. There is a mild orthopnea. General exam; elderly male, currently in no distress, awake and alert. Social History Smoking Status: Current every day smoker Exam/Review of Systems Vital Signs Vitals Vital Signs Date Time Temp Pulse Resp B/P Pulse Ox O2 Delivery O2 Flow Rate FiO2 06/26/16 08:00 98.3 108 28 131/71 Room Air 06/26/16 07:00 97 06/25/16 20:15 21 06/25/16 18:12 2.0 Intake and Output 06/25/16 06/25/16 06/26/16 15:00 23:00 07:00 Intake Total 754 ml 800 ml 725 ml Output Total 850 ml 550 ml 1250 ml Balance -96 ml 250 ml -525 ml Exam HEENT exam; supple neck, no JVD. No lymphadenopathy. Midline trachea. No thyromegaly. Pharynx is clear. Patient does have a few missing teeth. Pupils are midsize and reactive to light bilaterally and equally. Chest exam; clear to auscultation bilaterally. Nontender chest wall. S1-S2 audible, no murmurs. Regular rhythm. There is a well-healed right lateral thoracotomy scar. Abdomen exam is; soft, nondistended. No organomegaly. Bowel sounds audible. Extremity exam is; no peripheral edema. No clubbing. Pulses 1+ bilaterally. M[employer] COORDINATOR examination; patient has intact cranial nerves there is no motor deficit. Results Result Diagram: 06/26/16 0432 06/26/16 0432 Results 24 hrs Laboratory Tests Test 06/25/16 11:20 06/25/16 18:17 06/25/16 21:19 06/26/16 02:31 Urine Color LT. YELLOW Urine Clarity CLEAR Urine pH 5.0 Urine Specific [place] 1.010 Urine Ketones NEGATIVE Urine Nitrite NEGATIVE Urine Bilirubin NEGATIVE Urine Urobilinogen 0.2 E.U./dL Urine Leukocyte Esterase NEGATIVE Urine Microscopic RBC 0-2 Urine Microscopic WBC NONE SEEN Urine Hemoglobin 1+ H Urine Random Creatinine 37.50 Urine Random Sodium 76 Urine Glucose >=1000 Urine Total Protein 50.3 H Bedside Glucose 143 116 148 110 Test 06/26/16 04:32 06/26/16 07:39 White Blood Count 10.9 H Red Blood Count 5.07 Hemoglobin 15.7 Hematocrit 46.9 Mean Corpuscular Volume 92.5 Mean Corpuscular Hemoglobin 31.0 Mean Corpuscular Hemoglobin Concent 33.5 Red Cell Distribution Width 13.3 Platelet Count 134 L Mean Platelet Volume 10.7 H Neutrophils % 60.7 Lymphocytes % 24.7 Monocytes % 8.4 Eosinophils % 5.1 Basophils % 0.5 Nucleated Red Blood Cells % 0.0 Neutrophils # 6.6 Lymphocytes # 2.7 Monocytes # 0.9 Eosinophils # 0.6 H Basophils # 0.1 Nucleated Red Blood Cells # 0.0 Sodium Level 137 Potassium Level 4.7 Chloride Level 105 Carbon Dioxide Level 28 Anion Gap 9 Blood Urea Nitrogen 23 H Creatinine 1.25 H Glucose Level 110 Calcium Level 9.1 Phosphorus Level 3.2 Magnesium Level 1.9 Total Bilirubin 0.6 Direct Bilirubin 0.00 Indirect Bilirubin 0.6 Aspartate Amino Transf (AST/SGOT) 122 #H Alanine Aminotransferase (ALT/SGPT) 46 Alkaline Phosphatase 53 Creatine Kinase 233 #H Creatine Kinase Index 4.0 Creatinine Kinase MB (Mass) 9.29 H Troponin I 29.400 *H Total Protein 5.9 L Albumin 3.7 Globulin 2.20 Albumin/Globulin Ratio 1.68 Bedside Glucose 136 Medications Medications Current Medications Miscellaneous Information (* Miscellaneous Pharmacy Order) Hold all Metformin ... ONCE XX Last administered on 06/25/16 19:55; Admin Dose 1 EA; Start at 19:30; Stop 06/26/16 at 19:29 Aspirin (Halfprin) 81 mg DAILY PO Last administered on 06/26/16 08:46; Admin Dose 81 MG; Start 06/25/16 at 09:00 Ticagrelor 90 mg 90 mg BID PO Last administered on 06/26/16 08:45; Admin Dose 90 MG; Start 06/24/16 at 21:00 Nitroglycerin/ Dextrose (Nitroglycerin 50 Mg/D5W (Pmx)) 250 ml @ 1.5 mls/hr TITRATE IV Last administered on 06/25/16 14:02; Admin Dose 30 MLS/HR; Start 06/24/16 at 19:30 Acetaminophen (Tylenol Tab) 650 mg Q4H PRN PO NON-CARDIAC PAIN LEVEL 1-3; Start 06/24/16 at 19:30 Oxycodone/ Acetaminophen (Percocet (5/ 325)) 1 tab Q4H PRN PO REPORTED NON- CARDIAC PAIN 4-7; Start 06/24/16 at 19:30 Oxycodone/ Acetaminophen (Percocet (5/ 325)) 2 tab Q4H PRN PO REPORTED NON- CARDIAC PAIN 4-7; Start 06/24/16 at 19:30 Morphine Sulfate (morphine) 1 mg Q1H PRN IV PAIN NOT RELIEVED BY OTHERS Last administered on 06/25/16 21:43; Admin Dose 1 MG; Start 06/24/16 at 19:30 Docusate Sodium (Colace) 100 mg BID PO Last administered on 06/26/16 08:44; Admin Dose 100 MG; Start 06/24/16 at 21:00 Famotidine (Pepcid) 20 mg DAILY PO Last administered on 06/26/16 08:45; Admin Dose 20 MG; Start 06/25/16 at 09:00 Atorvastatin Calcium (Lipitor) 80 mg DAILY@21 PO Last administered on 06/25/16 21:14; Admin Dose 80 MG; Start 06/24/16 at 21:00 Acetylcysteine (Nac) 600 mg BID PO Last administered on 06/26/16 08:44; Admin Dose 600 MG; Start 06/25/16 at 09:00 Diagnostic Test (Pha) (Accu-Chek) 1 ea 02 XX Last administered on 06/26/16 02: 32; Admin Dose 1 EA; Start 06/25/16 at 02:00 Miscellaneous Information 1 ea NOTE XX ; Start 06/24/16 at 23:30 Glucose (Glutose) 15 gm Q15M PRN PO DECREASED GLUCOSE; Start 06/24/16 at 23:30 Glucose (Glutose) 22.5 gm Q15M PRN PO DECREASED GLUCOSE; Start 06/24/16 at 23:30 Dextrose (D50w Syringe) 25 ml Q15M PRN IV DECREASED GLUCOSE; Start 06/24/16 at 23:30 Dextrose (D50w Syringe) 50 ml Q15M PRN IV DECREASED GLUCOSE; Start 06/24/16 at 23:30 Glucagon (Glucagen) 1 mg Q15M PRN IM DECREASED GLUCOSE; Start 06/24/16 at 23:30 Glucose (Glutose) 15 gm Q15M PRN BUCCAL DECREASED GLUCOSE; Start 06/24/16 at 23: 30 Miscellaneous Information (* Miscellaneous Pharmacy Order) Hold all Metformin ... ONCE XX ; Start 06/25/16 at 18:00; Stop 06/27/16 at 17:59 Metoprolol Succinate (Toprol Xl) 25 mg BID PO ; Start 06/26/16 at 21:00 FAB HART Jun 26, 2016 10:29
--- NOTE | 2016-06-26 11:04 | RADRPT ---
PROCEDURE: CHEST 1VW CLINICAL INDICATION: Shortness of breath TECHNIQUE: Single frontal view of the chest was obtained COMPARISON: 06/24/2016 FINDINGS: The cardiac size is L enlarged, stable. Aortic vascular calcifications are demonstrated. There is improved but persistent mild pulmonary vascular congestion. The lungs are clear. No consolidation, effusion, or pneumothorax. Mild degenerative changes of the visualized osseous structures are visualized. IMPRESSION: 1. Stable cardiomegaly with improved but persistent mild pulmonary vascular congestion. 2. Atherosclerosis. RPTAT:PP .Hipolito Vergara MD, MD Date Time Electronically viewed and signed by .Hipolito Vergara MD, MD on 06/26/2016 11:04 .V/
--- NOTE | 2016-06-26 11:21 | PN ---
Date/Time of Note Date/Time of Note DATE: 06/26/16 TIME: 11:18 Assessment/Plan VTE Prophylaxis VTE Prophylaxis Intervention: heparin Lines/Catheters IV C[facility]ter Type (from [facility]): Peripheral IV Urinary Cath still in place: No Assessment/Plan Chief Complaint/Hosp Course ASSESSMENT:ASSESSMENT AND PLAN: 1. Acute anterior ST elevation myocardial infarction. Status post cardiac catheterization and PCI of the right coronary artery today Continue Brilinta, aspirin, statin 2. Diabetes type 2 : Continue insulin, insulin sliding scale, low-carb diet 3. Hypertension: Well-controlled on medical management 4. Dyslipidemia. continue statin 5. Tobacco abuse. Smoking cessation has been advised, 6. Multivessel coronary artery disease. 7. Acute Renal insufficiency on CKD Improving status post IV fluid, nephrology has been consulted PLAN: * Transferred to telemetry floor for 24 hours monitoring * Appreciate all consults Problems: Subjective 24 Hr Interval Summary Free Text/Dictation Postop day #1 Doing well Denies any chest pain or shortness of breath Tolerating oral intake Exam/Review of Systems Vital Signs Vitals Vital Signs Date Time Temp Pulse Resp B/P Pulse Ox O2 Delivery O2 Flow Rate FiO2 06/26/16 08:00 98.3 108 28 131/71 Room Air 06/26/16 07:00 97 06/25/16 20:15 21 06/25/16 18:12 2.0 Intake and Output 06/25/16 06/25/16 06/26/16 15:00 23:00 07:00 Intake Total 754 ml 800 ml 725 ml Output Total 850 ml 550 ml 1250 ml Balance -96 ml 250 ml -525 ml Exam General: The patient is moderately overweight, Not in acute distress. HEENT: Atraumatic, normocephalic. The pupils are equal and round . Neck: Supple with full range of motion. Chest: Normal expansion of the thorax during inspiration Lungs: Clear to auscultation bilaterally Heart: Normal S1-S2, Regular rhythm and rate. Abdomen: Soft , nontender, nondistended , bowel sounds are present. Extremities: Normal to inspection, no edema no cyanosis Neurologic: Normal mental status,The patient is awake, alert and oriented . Results Result Diagram: 06/26/16 0432 06/26/16 0432 Results 24 hrs Laboratory Tests Test 06/25/16 11:20 06/25/16 18:17 06/25/16 21:19 06/26/16 02:31 Urine Color LT. YELLOW Urine Clarity CLEAR Urine pH 5.0 Urine Specific [place] 1.010 Urine Ketones NEGATIVE Urine Nitrite NEGATIVE Urine Bilirubin NEGATIVE Urine Urobilinogen 0.2 E.U./dL Urine Leukocyte Esterase NEGATIVE Urine Microscopic RBC 0-2 Urine Microscopic WBC NONE SEEN Urine Hemoglobin 1+ H Urine Random Creatinine 37.50 Urine Random Sodium 76 Urine Glucose >=1000 Urine Total Protein 50.3 H Bedside Glucose 143 116 148 110 Test 06/26/16 04:32 06/26/16 07:39 White Blood Count 10.9 H Red Blood Count 5.07 Hemoglobin 15.7 Hematocrit 46.9 Mean Corpuscular Volume 92.5 Mean Corpuscular Hemoglobin 31.0 Mean Corpuscular Hemoglobin Concent 33.5 Red Cell Distribution Width 13.3 Platelet Count 134 L Mean Platelet Volume 10.7 H Neutrophils % 60.7 Lymphocytes % 24.7 Monocytes % 8.4 Eosinophils % 5.1 Basophils % 0.5 Nucleated Red Blood Cells % 0.0 Neutrophils # 6.6 Lymphocytes # 2.7 Monocytes # 0.9 Eosinophils # 0.6 H Basophils # 0.1 Nucleated Red Blood Cells # 0.0 Sodium Level 137 Potassium Level 4.7 Chloride Level 105 Carbon Dioxide Level 28 Anion Gap 9 Blood Urea Nitrogen 23 H Creatinine 1.25 H Glucose Level 110 Calcium Level 9.1 Phosphorus Level 3.2 Magnesium Level 1.9 Total Bilirubin 0.6 Direct Bilirubin 0.00 Indirect Bilirubin 0.6 Aspartate Amino Transf (AST/SGOT) 122 #H Alanine Aminotransferase (ALT/SGPT) 46 Alkaline Phosphatase 53 Creatine Kinase 233 #H Creatine Kinase Index 4.0 Creatinine Kinase MB (Mass) 9.29 H Troponin I 29.400 *H Total Protein 5.9 L Albumin 3.7 Globulin 2.20 Albumin/Globulin Ratio 1.68 Bedside Glucose 136 Medications Medications Current Medications Miscellaneous Information (* Miscellaneous Pharmacy Order) Hold all Metformin ... ONCE XX Last administered on 06/25/16 19:55; Admin Dose 1 EA; Start at 19:30; Stop 06/26/16 at 19:29 Aspirin (Halfprin) 81 mg DAILY PO Last administered on 06/26/16 08:46; Admin Dose 81 MG; Start 06/25/16 at 09:00 Ticagrelor 90 mg 90 mg BID PO Last administered on 06/26/16 08:45; Admin Dose 90 MG; Start 06/24/16 at 21:00 Nitroglycerin/ Dextrose (Nitroglycerin 50 Mg/D5W (Pmx)) 250 ml @ 1.5 mls/hr TITRATE IV Last administered on 06/25/16 14:02; Admin Dose 30 MLS/HR; Start 06/24/16 at 19:30 Acetaminophen (Tylenol Tab) 650 mg Q4H PRN PO NON-CARDIAC PAIN LEVEL 1-3; Start 06/24/16 at 19:30 Oxycodone/ Acetaminophen (Percocet (5/ 325)) 1 tab Q4H PRN PO REPORTED NON- CARDIAC PAIN 4-7; Start 06/24/16 at 19:30 Oxycodone/ Acetaminophen (Percocet (5/ 325)) 2 tab Q4H PRN PO REPORTED NON- CARDIAC PAIN 4-7; Start 06/24/16 at 19:30 Morphine Sulfate (morphine) 1 mg Q1H PRN IV PAIN NOT RELIEVED BY OTHERS Last administered on 06/25/16 21:43; Admin Dose 1 MG; Start 06/24/16 at 19:30 Docusate Sodium (Colace) 100 mg BID PO Last administered on 06/26/16 08:44; Admin Dose 100 MG; Start 06/24/16 at 21:00 Famotidine (Pepcid) 20 mg DAILY PO Last administered on 06/26/16 08:45; Admin Dose 20 MG; Start 06/25/16 at 09:00 Atorvastatin Calcium (Lipitor) 80 mg DAILY@21 PO Last administered on 06/25/16 21:14; Admin Dose 80 MG; Start 06/24/16 at 21:00 Acetylcysteine (Nac) 600 mg BID PO Last administered on 06/26/16 08:44; Admin Dose 600 MG; Start 06/25/16 at 09:00 Diagnostic Test (Pha) (Accu-Chek) 1 ea 02 XX Last administered on 06/26/16 02: 32; Admin Dose 1 EA; Start 06/25/16 at 02:00 Miscellaneous Information 1 ea NOTE XX ; Start 06/24/16 at 23:30 Glucose (Glutose) 15 gm Q15M PRN PO DECREASED GLUCOSE; Start 06/24/16 at 23:30 Glucose (Glutose) 22.5 gm Q15M PRN PO DECREASED GLUCOSE; Start 06/24/16 at 23:30 Dextrose (D50w Syringe) 25 ml Q15M PRN IV DECREASED GLUCOSE; Start 06/24/16 at 23:30 Dextrose (D50w Syringe) 50 ml Q15M PRN IV DECREASED GLUCOSE; Start 06/24/16 at 23:30 Glucagon (Glucagen) 1 mg Q15M PRN IM DECREASED GLUCOSE; Start 06/24/16 at 23:30 Glucose (Glutose) 15 gm Q15M PRN BUCCAL DECREASED GLUCOSE; Start 06/24/16 at 23: 30 Miscellaneous Information (* Miscellaneous Pharmacy Order) Hold all Metformin ... ONCE XX ; Start 06/25/16 at 18:00; Stop 06/27/16 at 17:59 Metoprolol Succinate (Toprol Xl) 25 mg BID PO ; Start 06/26/16 at 21:00 GABRIELLE SMITH MD Jun 26, 2016 11:21
[2016-06-26] MEDS ORDERED: SOD CHLORIDE 0.45% 1,000 ML IV SCH (11:30)
[2016-06-26] MEDS: ATORVASTATIN 80 MG TAB PO SCH (21:17)
[2016-06-26] MEDS: METOPROLOL (XL) 25 MG TAB PO SCH (21:18)
[2016-06-26] MEDS: LORAZEPAM 1 MG TAB PO PRN (22:13)
[2016-06-27] VITALS (12 sets, daily range): BP systolic 111–135; BP diastolic 57–82; PULSE 73–90; RESP 18–20
[2016-06-27] MEDS: ACCUCHECK AT 2AM (Patients on SS coverage) XX SCH (02:00)
[2016-06-27 07:41] LABS: ADD SCAN DIFF NO
[2016-06-27 07:54] LABS: BASOPHILS % 0.4 % (0.0-2.0); EOSINOPHILS # 0.5 10^3/ul (0.0-0.5); EOSINOPHILS % 4.8 % (0.0-7.0); HEMATOCRIT 48.4 % (42.0-52.0); HEMOGLOBIN 16.1 g/dl (14.0-18.0); LYMPHOCYTES % 21.3 % (15.0-51.0); MEAN CORPUSCULAR HEMOGLOBIN 31.1 pg (29.0-33.0); MEAN CORPUSCULAR HGB CONC 33.3 g/dl (32.0-37.0); MEAN CORPUSCULAR VOLUME 93.6 fl (82.0-101.0); MONOCYTE # 0.7 10^3/ul (0.3-0.9); MONOCYTES % 7.3 % (0.0-11.0); NEUTROPHIL # 6.3 10^3/ul (1.6-7.5); NEUTROPHILS % 65.7 % (39.0-77.0); PLATELET COUNT 143 10^3/UL (140-415); RED BLOOD COUNT 5.17 10^6/ul (4.70-6.10); RED CELL DISTRIBUTION WIDTH 13.3 % (11.5-14.5); WHITE BLOOD COUNT 9.5 10^3/ul (4.8-10.8)
[2016-06-27 07:58] LABS: POTASSIUM 4.3 mmol/L (3.5-5.1)
[2016-06-27 08:01] LABS: CREATININE 1.32 mg/dl (0.61-1.24)
[2016-06-27 08:02] LABS: CALCIUM 9.2 mg/dl (8.4-10.2); MAGNESIUM 1.8 mg/dl (1.7-2.5); PHOSPHORUS 4.3 mg/dl (2.5-4.9)
--- NOTE | 2016-06-27 08:29 | PN ---
DATE: 06/26/2016 CARDIOLOGY FOLLOWUP PROGRESS NOTE SUBJECTIVE: Discussed with the staff. The patient with no chest pain or pressure. No palpitations , no arm pain, no groin pain. He has had shortness of breath and orthopnea as well. was revi ewed. He remains in sinus rhythm. MEDICATIONS: Reviewed as per medication reconciliation, personally reviewed. PHYSICAL EXAMINATION: VITAL SIGNS: Temperature 98.3, heart rate of 108, blood pressure of 131/71, respiratory rate of 28. HEENT: Normocephalic, atraumatic. Pupils are equal. CARDIOVASCULAR: Regular rate and rhythm, systolic murmur. PULMONARY: With mild wheezes, diffuse. GASTROINTESTINAL: Soft, nontender. EXTREMITIES: Trivial lower extremity edema. NEUROLOGIC: Awake and alert. VASCULAR: Left radial pulse is intact. In dressing. NEUROLOGIC: Awake, alert, oriented x3. PSYCHIATRIC: Calm and pleasant. SKIN: There are multiple ecchymoses. LABORATORY: WBC of 10.9, hemoglobin 15.7, platelets of 134,000. Sodium 137, potassium 4.7, BUN of 23, creatinine 1.25, glucose of 110. Troponin of 29.4, albumin is 3.7. I's and O's show 2300 in, 2 650 out. ASSESSMENT AND PLAN: 1. Acute ST elevation myocardial infarction. 2. Status post percutaneous coronary intervention of the left anterior descending and right coronar y artery. 3. Renal insufficiency, currently has improved. 4. Hypertension. 5. Dyslipidemia. 6. Diabetes. 7. Abnormal EKG, right bundle branch block. 8. Most likely underlying chronic obstructive pulmonary disease. 9. Congestive heart failure, acute on chronic, secondary to systolic and diastolic heart failure. RECOMMENDATIONS: I will change the Coreg to Toprol-XL, given his wheezing, to have a more selective beta erik on board. Give 1 bolus of diuretics IV. Continue with the statin, continue with aspi rin and Brilinta. Patient can be transferred to telemetry. Discharge planning probably on Friday a fternoon if remains stable. We will schedule for outpatient followup. I will give the prescription for aspirin and Brilinta to the patient to get the medication filled now. Dictated By: VANESSA GAVIN/SMITH Conf#: [id number] DID#: [id number] CC: JG HERNÁNDEZ MD;*[facility]*
[2016-06-27] MEDS: DOCUSATE SODIUM 100 MG CAP PO SCH ×2 (09:20→21:51)
[2016-06-27] MEDS: ASPIRIN (EC) 81 MG TAB PO SCH (09:21)
[2016-06-27] MEDS: ACETYLCYSTEINE 600 MG CAP PO SCH ×2 (09:21→21:51)
[2016-06-27] MEDS: METOPROLOL (XL) 25 MG TAB PO SCH ×2 (09:21→21:51)
[2016-06-27] MEDS: FAMOTIDINE 20 MG TAB PO SCH (09:21)
[2016-06-27] MEDS: TICAGRELOR 90 MG TABLET PO SCH ×2 (09:21→21:55)
[2016-06-27 10:00] LABS: ALBUMIN 3.8 g/dl (3.3-4.9)
[2016-06-27] MEDS: LOSARTAN 25 MG TAB PO SCH (10:02)
[2016-06-27 10:03] LABS: BILIRUBIN,INDIRECT 0.6 mg/dl (0-1.1); BILIRUBIN,TOTAL 0.6 mg/dl (0.2-1.3); TOTAL PROTEIN 6.5 g/dl (6.1-8.1)
[2016-06-27] MEDS: INSULIN ASPART [NOVOLOG] 3 ML PEN SC SCH ×4 (10:07→21:56)
[2016-06-27 10:11] LABS: CK-MB 2.25 ng/ml (0.0-2.4)
[2016-06-27 10:14] LABS: TROPONIN-I 13.1 ng/ml (0.00-0.12)
[2016-06-27] MEDS ORDERED: DIAZEPAM 5 MG TAB PO PRN ×2 (16:00)
[2016-06-27] MEDS ORDERED: ALBUTEROL HFA 8 GM INHALER INH PRN (16:00)
[2016-06-27] MEDS ORDERED: NICOTINE (14 MG/24 HR) PATCH TRANSDERM ONE (16:00)
--- NOTE | 2016-06-27 16:02 | PN ---
Date/Time of Note Date/Time of Note DATE: 06/27/16 TIME: 16:00 Assessment/Plan VTE Prophylaxis VTE Prophylaxis Intervention: other Lines/Catheters IV Catheter Type (from [facility] [place]): Saline Lock Urinary Cath still in place: No Assessment/Plan Chief Complaint/Hosp Course ASSESSMENT:ASSESSMENT AND PLAN: 1. Acute anterior ST elevation myocardial infarction. Status post cardiac catheterization and PCI of the right coronary artery today Continue Brilinta, aspirin, statin 2. Diabetes type 2 : Continue insulin, insulin sliding scale, low-carb diet 3. Hypertension: Well-controlled on medical management 4. Dyslipidemia. continue statin 5. Tobacco abuse. Smoking cessation has been advised, nicotine patch 6. Multivessel coronary artery disease. 7. Acute Renal insufficiency on CKD Improving status post IV fluid, nephrology has been consulted 8. Wheezing/questionable COPD With a history of smoking, patient has been started on albuterol PLAN: * Transferred to telemetry floor for 24 hours monitoring * Appreciate all consults Problems: Subjective 24 Hr Interval Summary Free Text/Dictation Patient complains of having anxiety Denies any chest pain or shortness of breath Tolerating oral intake Exam/Review of Systems Vital Signs Vitals Vital Signs Date Time Temp Pulse Resp B/P Pulse Ox O2 Delivery O2 Flow Rate FiO2 06/27/16 12:19 98.6 90 18 111/67 97 Room Air 06/26/16 14:00 21 06/25/16 18:12 2.0 Intake and Output 06/26/16 06/26/16 06/27/16 15:00 23:00 07:00 Intake Total 660 ml 490 ml 450 ml Output Total 600 ml 200 ml 900 ml Balance 60 ml 290 ml -450 ml Exam General: The patient is well-developed, Not in acute distress. HEENT: Atraumatic, normocephalic. The pupils are equal and round . Neck: Supple with full range of motion. Chest: Normal expansion of the thorax during inspiration Lungs: Bilateral upper lung wheezing Heart: Normal S1-S2, Regular rhythm and rate. Abdomen: Soft , nontender, nondistended , bowel sounds are present. Extremities: Normal to inspection, no edema no cyanosis Neurologic: Normal mental status,The patient is awake, alert and oriented . Results Result Diagram: 06/27/16 0702 06/27/16 0702 Results 24 hrs Laboratory Tests Test 06/26/16 17:01 06/26/16 20:16 06/27/16 07:02 06/27/16 07:32 Bedside Glucose 154 163 183 White Blood Count 9.5 Red Blood Count 5.17 Hemoglobin 16.1 Hematocrit 48.4 Mean Corpuscular Volume 93.6 Mean Corpuscular Hemoglobin 31.1 Mean Corpuscular Hemoglobin Concent 33.3 Red Cell Distribution Width 13.3 Platelet Count 143 Mean Platelet Volume 11.0 H Neutrophils % 65.7 Lymphocytes % 21.3 Monocytes % 7.3 Eosinophils % 4.8 Basophils % 0.4 Nucleated Red Blood Cells % 0.0 Neutrophils # 6.3 Lymphocytes # 2.0 Monocytes # 0.7 Eosinophils # 0.5 Basophils # 0.0 Nucleated Red Blood Cells # 0.0 Sodium Level 140 Potassium Level 4.3 Chloride Level 99 Carbon Dioxide Level 30 Anion Gap 15 Blood Urea Nitrogen 23 H Creatinine 1.32 H Glucose Level 213 # Calcium Level 9.2 Phosphorus Level 4.3 Magnesium Level 1.8 Total Bilirubin 0.6 Direct Bilirubin 0.00 Indirect Bilirubin 0.6 Aspartate Amino Transf (AST/SGOT) 54 #H Alanine Aminotransferase (ALT/SGPT) 29 Alkaline Phosphatase 49 Creatine Kinase 69 # Creatine Kinase Index 3.3 Creatinine Kinase MB (Mass) 2.25 Troponin I 13.100 *H B-Type Natriuretic Peptide 1580 H Total Protein 6.5 Albumin 3.8 Test 06/27/16 10:06 06/27/16 12:09 Bedside Glucose 201 136 Medications Medications Current Medications Aspirin (Halfprin) 81 mg DAILY PO Last administered on 06/27/16 09:21; Admin Dose 81 MG; Start 06/25/16 at 09:00 Ticagrelor 90 mg 90 mg BID PO Last administered on 06/27/16 09:21; Admin Dose 90 MG; Start 06/24/16 at 21:00 Nitroglycerin/ Dextrose (Nitroglycerin 50 Mg/D5W (Pmx)) 250 ml @ 1.5 mls/hr TITRATE IV Last administered on 06/25/16 14:02; Admin Dose 30 MLS/HR; Start 06/24/16 at 19:30 Acetaminophen (Tylenol Tab) 650 mg Q4H PRN PO NON-CARDIAC PAIN LEVEL 1-3; Start 06/24/16 at 19:30 Oxycodone/ Acetaminophen (Percocet (5/ 325)) 1 tab Q4H PRN PO REPORTED NON- CARDIAC PAIN 4-7; Start 06/24/16 at 19:30 Oxycodone/ Acetaminophen (Percocet (5/ 325)) 2 tab Q4H PRN PO REPORTED NON- CARDIAC PAIN 4-7; Start 06/24/16 at 19:30 Morphine Sulfate (morphine) 1 mg Q1H PRN IV PAIN NOT RELIEVED BY OTHERS Last administered on 06/25/16 21:43; Admin Dose 1 MG; Start 06/24/16 at 19:30 Docusate Sodium (Colace) 100 mg BID PO Last administered on 06/27/16 09:20; Admin Dose 100 MG; Start 06/24/16 at 21:00 Famotidine (Pepcid) 20 mg DAILY PO Last administered on 06/27/16 09:21; Admin Dose 20 MG; Start 06/25/16 at 09:00 Atorvastatin Calcium (Lipitor) 80 mg DAILY@21 PO Last administered on 06/26/16 21:17; Admin Dose 80 MG; Start 06/24/16 at 21:00 Acetylcysteine (Nac) 600 mg BID PO Last administered on 06/27/16 09:21; Admin Dose 600 MG; Start 06/25/16 at 09:00 Diagnostic Test (Pha) (Accu-Chek) 1 ea 02 XX Last administered on 06/26/16 02: 32; Admin Dose 1 EA; Start 06/25/16 at 02:00 Miscellaneous Information 1 ea NOTE XX ; Start 06/24/16 at 23:30 Glucose (Glutose) 15 gm Q15M PRN PO DECREASED GLUCOSE; Start 06/24/16 at 23:30 Glucose (Glutose) 22.5 gm Q15M PRN PO DECREASED GLUCOSE; Start 06/24/16 at 23:30 Dextrose (D50w Syringe) 25 ml Q15M PRN IV DECREASED GLUCOSE; Start 06/24/16 at 23:30 Dextrose (D50w Syringe) 50 ml Q15M PRN IV DECREASED GLUCOSE; Start 06/24/16 at 23:30 Glucagon (Glucagen) 1 mg Q15M PRN IM DECREASED GLUCOSE; Start 06/24/16 at 23:30 Glucose (Glutose) 15 gm Q15M PRN BUCCAL DECREASED GLUCOSE; Start 06/24/16 at 23: 30 Miscellaneous Information (* Miscellaneous Pharmacy Order) Hold all Metformin ... ONCE XX ; Start 06/25/16 at 18:00; Stop 06/27/16 at 17:59 Metoprolol Succinate (Toprol Xl) 25 mg BID PO Last administered on 06/27/16 09: 21; Admin Dose 25 MG; Start 06/26/16 at 21:00 Losartan Potassium (Cozaar) 25 mg DAILY PO Last administered on 06/27/16 10:02 ; Admin Dose 25 MG; Start 06/27/16 at 09:00 GABRIELLE SMITH MD Jun 27, 2016 16:02
--- NOTE | 2016-06-27 16:20 | CONS ---
Date/Time of Note Date/Time of Note DATE: 06/27/16 TIME: 16:17 Consult Date/Type/Reason Admit Date/Time Jun 24, 2016 at 19:57 Initial Consult Date 06/26/16 Type of Consultation: neph Subjective The patient underwent cardiac catheterization with a PCI to the RCA, tolerated well. Overnight, the patient remains clinically stable. No hemoptysis, hematemesis or hematochezia. continues good uo. poc reviewed with dr. garcia OBJECTIVE: HEENT: Head is normocephalic. NECK: Supple. HEART: Regular rate. LUNGS: Show diminished breath sounds at the base. ABDOMEN: Soft, nontender to palpation without rebound or guarding. EXTREMITIES: Negative for clubbing, cyanosis, no edema. DERMATOLOGIC: No rashes. MUSCULOSKELETAL: No joint effusions. NEUROLOGIC: No change in exam. Objective Vital Signs Date Time Temp Pulse Resp B/P Pulse Ox O2 Delivery O2 Flow Rate FiO2 06/27/16 12:19 98.6 90 18 111/67 97 Room Air 06/26/16 14:00 21 06/25/16 18:12 2.0 Intake and Output 06/26/16 06/26/16 06/27/16 15:00 23:00 07:00 Intake Total 660 ml 490 ml 450 ml Output Total 600 ml 200 ml 900 ml Balance 60 ml 290 ml -450 ml Results/Medications Result Diagram: 06/27/16 0702 06/27/16 0702 Results 24 hrs Laboratory Tests Test 06/26/16 17:01 06/26/16 20:16 06/27/16 07:02 06/27/16 07:32 Bedside Glucose 154 163 183 White Blood Count 9.5 Red Blood Count 5.17 Hemoglobin 16.1 Hematocrit 48.4 Mean Corpuscular Volume 93.6 Mean Corpuscular Hemoglobin 31.1 Mean Corpuscular Hemoglobin Concent 33.3 Red Cell Distribution Width 13.3 Platelet Count 143 Mean Platelet Volume 11.0 H Neutrophils % 65.7 Lymphocytes % 21.3 Monocytes % 7.3 Eosinophils % 4.8 Basophils % 0.4 Nucleated Red Blood Cells % 0.0 Neutrophils # 6.3 Lymphocytes # 2.0 Monocytes # 0.7 Eosinophils # 0.5 Basophils # 0.0 Nucleated Red Blood Cells # 0.0 Sodium Level 140 Potassium Level 4.3 Chloride Level 99 Carbon Dioxide Level 30 Anion Gap 15 Blood Urea Nitrogen 23 H Creatinine 1.32 H Glucose Level 213 # Calcium Level 9.2 Phosphorus Level 4.3 Magnesium Level 1.8 Total Bilirubin 0.6 Direct Bilirubin 0.00 Indirect Bilirubin 0.6 Aspartate Amino Transf (AST/SGOT) 54 #H Alanine Aminotransferase (ALT/SGPT) 29 Alkaline Phosphatase 49 Creatine Kinase 69 # Creatine Kinase Index 3.3 Creatinine Kinase MB (Mass) 2.25 Troponin I 13.100 *H B-Type Natriuretic Peptide 1580 H Total Protein 6.5 Albumin 3.8 Test 06/27/16 10:06 06/27/16 12:09 Bedside Glucose 201 136 Medications Current Medications Aspirin (Halfprin) 81 mg DAILY PO Last administered on 06/27/16 09:21; Admin Dose 81 MG; Start 06/25/16 at 09:00 Ticagrelor (Brilinta) 90 mg BID PO Last administered on 06/27/16 09:21; Admin Dose 90 MG; Start 06/24/16 at 21:00 Acetaminophen (Tylenol Tab) 650 mg Q4H PRN PO NON-CARDIAC PAIN LEVEL 1-3; Start 06/24/16 at 19:30 Oxycodone/ Acetaminophen (Percocet (5/ 325)) 1 tab Q4H PRN PO REPORTED NON- CARDIAC PAIN 4-7; Start 06/24/16 at 19:30 Oxycodone/ Acetaminophen (Percocet (5/ 325)) 2 tab Q4H PRN PO REPORTED NON- CARDIAC PAIN 4-7; Start 06/24/16 at 19:30 Morphine Sulfate (morphine) 1 mg Q1H PRN IV PAIN NOT RELIEVED BY OTHERS Last administered on 06/25/16 21:43; Admin Dose 1 MG; Start 06/24/16 at 19:30 Docusate Sodium (Colace) 100 mg BID PO Last administered on 06/27/16 09:20; Admin Dose 100 MG; Start 06/24/16 at 21:00 Famotidine (Pepcid) 20 mg DAILY PO Last administered on 06/27/16 09:21; Admin Dose 20 MG; Start 06/25/16 at 09:00 Atorvastatin Calcium (Lipitor) 80 mg DAILY@21 PO Last administered on 06/26/16 21:17; Admin Dose 80 MG; Start 06/24/16 at 21:00 Acetylcysteine (Nac) 600 mg BID PO Last administered on 06/27/16 09:21; Admin Dose 600 MG; Start 06/25/16 at 09:00 Diagnostic Test (Pha) (Accu-Chek) 1 ea 02 XX Last administered on 06/26/16 02: 32; Admin Dose 1 EA; Start 06/25/16 at 02:00 Miscellaneous Information 1 ea NOTE XX ; Start 06/24/16 at 23:30 Glucose (Glutose) 15 gm Q15M PRN PO DECREASED GLUCOSE; Start 06/24/16 at 23:30 Glucose (Glutose) 22.5 gm Q15M PRN PO DECREASED GLUCOSE; Start 06/24/16 at 23:30 Dextrose (D50w Syringe) 25 ml Q15M PRN IV DECREASED GLUCOSE; Start 06/24/16 at 23:30 Dextrose (D50w Syringe) 50 ml Q15M PRN IV DECREASED GLUCOSE; Start 06/24/16 at 23:30 Glucagon (Glucagen) 1 mg Q15M PRN IM DECREASED GLUCOSE; Start 06/24/16 at 23:30 Glucose (Glutose) 15 gm Q15M PRN BUCCAL DECREASED GLUCOSE; Start 06/24/16 at 23: 30 Miscellaneous Information (* Miscellaneous Pharmacy Order) Hold all Metformin ... ONCE XX ; Start 06/25/16 at 18:00; Stop 06/27/16 at 17:59 Metoprolol Succinate (Toprol Xl) 25 mg BID PO Last administered on 06/27/16 09: 21; Admin Dose 25 MG; Start 06/26/16 at 21:00 Losartan Potassium (Cozaar) 25 mg DAILY PO Last administered on 06/27/16 10:02 ; Admin Dose 25 MG; Start 06/27/16 at 09:00 Diazepam (Valium) 5 mg Q8H PRN PO ANXIETY; Start 06/27/16 at 16:00 Diazepam (Valium) 10 mg Q8H PRN PO ANXIETY; Start 06/27/16 at 16:00 Nicotine (Nicoderm 14 Mg/ 24hr) 1 patch DAILY TRANSDERM ; Start 06/28/16 at 09:00 Assessment/Plan Chief Complaint/Hosp Course ASSESSMENT AND PLAN: 1. Nonoliguric acute kidney injury with unknown baseline creatinine, possible chronic kidney disease. Etiology of current acute kidney injury was secondary to hemodynamics. Renal function has improved with IV hydration. The patient at this point does not shows evidence of contrast-associated nephropathy. At this point, will continue to monitor. Continue supportive care, renally dose medications, avoid nephrotoxins. sp discontinue IV fluids as the patient is volume replete. Would withhold ANDRÉS inhibitor at this time and monitor closely. 2. Chronic kidney disease likely secondary to underlying diabetes, questionable hypertensive nephrosclerosis. The patient's urine protein creatinine ratio is approximately 1 gram per gram of creatinine. This is likely as stated above, due to diabetes. At this point, we will continue to treat acute kidney injury. Would otherwise continue good glycemic and blood pressure control. 3. Hyperkalemia. Etiology is likely spurious. Will continue to monitor since resolved. 4. Hyponatremia secondary to acute kidney injury, resolved. Continue to monitor. stable. 5. Acute anterior ST elevation NE. The patient is status post cardiac catheterization with PCI to the LAD and RCA. We will continue current medical management. Follow up with Cardiology. 6. Diabetes, continue Accu-Cheks and sliding scale. 7. Hypertension. Continue current blood pressure regimen. 8. Dyslipidemia. Continue statin therapy. 9. History of tobacco abuse. 10. Leukocytosis, etiology is likely secondary to acute myocardial infarction with demargination. The patient's leukocytosis is improving. Continue to monitor. Problems: WES HART MD Jun 27, 2016 16:20
[2016-06-27 16:21] LABS: MICROALBUMIN 28.3 mg/dL
[2016-06-27] MEDS: ATORVASTATIN 80 MG TAB PO SCH (21:51)
[2016-06-27] MEDS: LORAZEPAM 1 MG TAB PO PRN (21:51)
[2016-06-28] VITALS (8 sets, daily range): BP systolic 101–120; BP diastolic 59–78; PULSE 73–90; RESP 18–19
[2016-06-28] MEDS: ACCUCHECK AT 2AM (Patients on SS coverage) XX SCH (02:47)
--- NOTE | 2016-06-28 07:14 | PN ---
DATE: 06/27/2016 CARDIOLOGY FOLLOWUP SUBJECTIVE: Discussed with the staff. Rhythm strip was reviewed. The patient remains in sinus rhy thm. No chest pain or pressure. No palpitations. No groin pain, no arm pain. He still has some s hortness of breath, improved. MEDICATIONS: Reviewed. PHYSICAL EXAMINATION: VITAL SIGNS: Temperature 97.9, heart rate of 85, blood pressure 117/57, respiratory rate of 18, sat urating 95%. HEENT: Normocephalic, atraumatic. Pupils are equal. CARDIOVASCULAR: Regular rate and rhythm. PULMONARY: With mild wheezes. GASTROINTESTINAL: Soft, nontender. EXTREMITIES: No significant edema. NEUROLOGIC: Awake and alert. PSYCHIATRIC: Appears to be calm and pleasant. VASCULAR: No bruit in the right femoral, with good pulses in the left radial. LABORATORY: WBC of 9.5, hemoglobin 16.1, platelets of 143. Sodium 140, potassium 4.3, BUN of 23, c reatinine 1.32, glucose of 213. Mag is 1.8. Chest x-ray done yesterday shows stable cardiomegaly, with improved but persistent mild pulmonary va scular congestion. ASSESSMENT AND PLAN: 1. Acute anterior ST elevation myocardial infarction. 2. Status post emergent percutaneous coronary intervention of the left anterior descending, as well as urgent PCI of the right coronary artery. 3. Renal failure. Currently back to normal. 4. Diabetes. 5. Hypertension. 6. Dyslipidemia. RECOMMENDATIONS: Will continue with the current cardiac care. Discharge planning for tomorrow. Me toprolol will be continued. Aspirin, Lipitor and Brilinta will be continued. Pulmonary input is ap preciated. I will start the patient on an ARB now that renal function has remained stable. Dictated By: VANESSA DÍAZ MD AV/NTS Conf#: [id number] DID#: [id number] CC: GABRIELLE SMITH MD;*End*
[2016-06-28] MEDS: INSULIN ASPART [NOVOLOG] 3 ML PEN SC SCH ×2 (07:56→12:24)
[2016-06-28 08:53] LABS: ALBUMIN/GLOBULIN RATIO 1.37; BILIRUBIN,INDIRECT 0.5 mg/dl (0-1.1); BILIRUBIN,TOTAL 0.5 mg/dl (0.2-1.3); CALCIUM 9.2 mg/dl (8.4-10.2); CREATININE 1.24 mg/dl (0.61-1.24); MAGNESIUM 1.9 mg/dl (1.7-2.5); POTASSIUM 4.7 mmol/L (3.5-5.1); TOTAL PROTEIN 6.9 g/dl (6.1-8.1)
[2016-06-28] MEDS ORDERED: NICOTINE (14 MG/24 HR) PATCH TRANSDERM SCH (09:00)
[2016-06-28] MEDS: DOCUSATE SODIUM 100 MG CAP PO SCH (09:00)
[2016-06-28] MEDS: METOPROLOL (XL) 25 MG TAB PO SCH (09:45)
[2016-06-28] MEDS: ASPIRIN (EC) 81 MG TAB PO SCH (09:45)
[2016-06-28] MEDS: ACETYLCYSTEINE 600 MG CAP PO SCH (09:45)
[2016-06-28] MEDS: FAMOTIDINE 20 MG TAB PO SCH (09:46)
[2016-06-28] MEDS: LOSARTAN 25 MG TAB PO SCH (09:46)
[2016-06-28] MEDS: TICAGRELOR 90 MG TABLET PO SCH (09:47)
[2016-06-28 10:29] LABS: CK-MB 1.24 ng/ml (0.0-2.4); TROPONIN-I 10.1 ng/ml (0.00-0.12)
--- NOTE | 2016-06-28 11:32 | PN ---
Date/Time of Note Date/Time of Note DATE: 06/28/16 TIME: 11:30 Assessment/Plan VTE Prophylaxis VTE Prophylaxis Intervention: other Lines/Catheters IV Catheter Type (from [facility]): Saline Lock Urinary Cath still in place: No Assessment/Plan Assessment/Plan 1. Nonoliguric acute kidney injury secondary to hemodynamics. Renal function has improved with IV hydration. The patient at this point does not shows evidence of contrast-associated nephropathy. At this point, will continue to monitor. Continue supportive care, renally dose medications, avoid nephrotoxins. sp discontinue IV fluids as the patient is volume replete. Would withhold ANDRÉS inhibitor at this time and monitor closely. 2. Chronic kidney disease likely secondary to underlying diabetes, questionable hypertensive nephrosclerosis. The patient's urine protein creatinine ratio is approximately 1 gram per gram of creatinine. This is likely as stated above, due to diabetes. At this point, we will continue to treat acute kidney injury. Would otherwise continue good glycemic and blood pressure control. 3. Hyperkalemia. resolved 4. Hyponatremia secondary to acute kidney injury, resolved. Continue to monitor. stable. 5. Acute anterior ST elevation [place]. The patient is status post cardiac catheterization with PCI to the LAD and RCA. We will continue current medical management. Follow up with Cardiology. 6. Diabetes, continue Accu-Cheks and sliding scale. 7. Hypertension. Continue current blood pressure regimen. 8. Dyslipidemia. Continue statin therapy. 9. History of tobacco use 10. Leukocytosis, etiology is likely secondary to acute myocardial infarction with demargination. The patient's leukocytosis is improving. Continue to monitor. Subjective 24 Hr Interval Summary Free Text/Dictation The patient underwent cardiac catheterization with a PCI to the RCA, tolerated well. Overnight, the patient remains clinically stable. No hemoptysis, hematemesis or hematochezia. continues good uo. poc reviewed with dr. garcia arf is resolving OBJECTIVE: HEENT: Head is normocephalic. NECK: Supple. HEART: Regular rate. LUNGS: Show diminished breath sounds at the base. ABDOMEN: Soft, nontender to palpation without rebound or guarding. EXTREMITIES: Negative for clubbing, cyanosis, no edema. DERMATOLOGIC: No rashes. MUSCULOSKELETAL: No joint effusions. NEUROLOGIC: No change in exam. Exam/Review of Systems Vital Signs Vitals Vital Signs Date Time Temp Pulse Resp B/P Pulse Ox O2 Delivery O2 Flow Rate FiO2 06/28/16 11:20 98.0 83 18 115/76 97 06/27/16 16:26 Room Air 06/26/16 14:00 21 06/25/16 18:12 2.0 Intake and Output 06/27/16 06/27/16 06/28/16 15:00 23:00 07:00 Intake Total 640 ml 900 ml Balance 640 ml 900 ml Results Result Diagram: 06/27/16 0702 06/28/16 0725 Results 24 hrs Laboratory Tests Test 06/27/16 12:09 06/27/16 17:13 06/27/16 20:53 06/28/16 02:15 Bedside Glucose 136 152 197 123 Test 06/28/16 07:25 06/28/16 07:51 Sodium Level 138 Potassium Level 4.7 Chloride Level 103 Carbon Dioxide Level 29 Anion Gap 11 Blood Urea Nitrogen 24 H Creatinine 1.24 Glucose Level 142 # Calcium Level 9.2 Magnesium Level 1.9 Total Bilirubin 0.5 Direct Bilirubin 0.00 Indirect Bilirubin 0.5 Aspartate Amino Transf (AST/SGOT) 41 Alanine Aminotransferase (ALT/SGPT) 31 Alkaline Phosphatase 51 Creatine Kinase 53 Creatine Kinase Index 2.3 Creatinine Kinase MB (Mass) 1.24 Troponin I 10.100 *H B-Type Natriuretic Peptide 760 H Total Protein 6.9 Albumin 4.0 Globulin 2.90 Albumin/Globulin Ratio 1.37 Bedside Glucose 134 Medications Medications Current Medications Aspirin (Halfprin) 81 mg DAILY PO Last administered on 06/28/16 09:45; Admin Dose 81 MG; Start 06/25/16 at 09:00 Ticagrelor (Brilinta) 90 mg BID PO Last administered on 06/28/16 09:47; Admin Dose 90 MG; Start 06/24/16 at 21:00 Acetaminophen (Tylenol Tab) 650 mg Q4H PRN PO NON-CARDIAC PAIN LEVEL 1-3; Start 06/24/16 at 19:30 Oxycodone/ Acetaminophen (Percocet (5/ 325)) 1 tab Q4H PRN PO REPORTED NON- CARDIAC PAIN 4-7; Start 06/24/16 at 19:30 Oxycodone/ Acetaminophen (Percocet (5/ 325)) 2 tab Q4H PRN PO REPORTED NON- CARDIAC PAIN 4-7; Start 06/24/16 at 19:30 Morphine Sulfate (morphine) 1 mg Q1H PRN IV PAIN NOT RELIEVED BY OTHERS Last administered on 06/25/16 21:43; Admin Dose 1 MG; Start 06/24/16 at 19:30 Docusate Sodium (Colace) 100 mg BID PO Last administered on 06/27/16 21:51; Admin Dose 100 MG; Start 06/24/16 at 21:00 Famotidine (Pepcid) 20 mg DAILY PO Last administered on 06/28/16 09:46; Admin Dose 20 MG; Start 06/25/16 at 09:00 Atorvastatin Calcium (Lipitor) 80 mg DAILY@21 PO Last administered on 06/27/16 21:51; Admin Dose 80 MG; Start 06/24/16 at 21:00 Acetylcysteine (Nac) 600 mg BID PO Last administered on 06/28/16 09:45; Admin Dose 600 MG; Start 06/25/16 at 09:00 Diagnostic Test (Pha) (Accu-Chek) 1 ea 02 XX Last administered on 06/28/16 02: 47; Admin Dose 1 EA; Start 06/25/16 at 02:00 Miscellaneous Information 1 ea NOTE XX ; Start 06/24/16 at 23:30 Glucose (Glutose) 15 gm Q15M PRN PO DECREASED GLUCOSE; Start 06/24/16 at 23:30 Glucose (Glutose) 22.5 gm Q15M PRN PO DECREASED GLUCOSE; Start 06/24/16 at 23:30 Dextrose (D50w Syringe) 25 ml Q15M PRN IV DECREASED GLUCOSE; Start 06/24/16 at 23:30 Dextrose (D50w Syringe) 50 ml Q15M PRN IV DECREASED GLUCOSE; Start 06/24/16 at 23:30 Glucagon (Glucagen) 1 mg Q15M PRN IM DECREASED GLUCOSE; Start 06/24/16 at 23:30 Glucose (Glutose) 15 gm Q15M PRN BUCCAL DECREASED GLUCOSE; Start 06/24/16 at 23: 30 Metoprolol Succinate (Toprol Xl) 25 mg BID PO Last administered on 06/28/16 09: 45; Admin Dose 25 MG; Start 06/26/16 at 21:00 Losartan Potassium (Cozaar) 25 mg DAILY PO Last administered on 06/28/16 09:46 ; Admin Dose 25 MG; Start 06/27/16 at 09:00 Diazepam (Valium) 5 mg Q8H PRN PO ANXIETY; Start 06/27/16 at 16:00 Diazepam (Valium) 10 mg Q8H PRN PO ANXIETY Last administered on 06/27/16 17:13 ; Admin Dose 10 MG; Start 06/27/16 at 16:00 Nicotine (Nicoderm 14 Mg/ 24hr) 1 patch DAILY TRANSDERM Last administered on 09:47; Admin Dose 1 PATCH; Start 06/28/16 at 09:00 GUILLE SALTER DO Jun 28, 2016 11:32
--- NOTE | 2016-06-28 12:53 | PDOCDIS ---
Discharge Instructions CONDITION Patient Condition: Good HOME CARE INSTRUCTIONS: Diet Instructions: Low Fat /CholesterolSpecial Diet: DIABETIC DIET. ACTIVITY: Activity Restrictions: Slowly Increase Activity Rest between Activity Avoid heavy lifting Avoid Heavy Housework FOLLOW UP/APPOINTMENTS Appointments Follow-up with primary care physician as outpatient Follow up with cardiology as outpatient GABRIELLE SMITH MD Jun 28, 2016 12:53
[2016-06-28] MEDS ORDERED: CANA1TAB8 PO (12:58)
[2016-06-28] MEDS ORDERED: ASPI-664 PO (12:58)
[2016-06-28] MEDS ORDERED: DOCU-216 PO (12:58)
[2016-06-28] MEDS ORDERED: METO25TA7 PO (12:58)
[2016-06-28] MEDS ORDERED: ATOR80TA75 PO (12:58)
[2016-06-28] MEDS ORDERED: LOSA25TA2 PO (12:58)
[2016-06-28] MEDS ORDERED: TICA90TA PO (12:58)
[2016-06-28] MEDS ORDERED: Nicotine (14 Mg/24 Hr) TRANSDERM (12:58)
--- NOTE | 2016-06-28 14:32 | PN ---
DATE: 06/28/2016 CARDIOLOGY FOLLOWUP SUBJECTIVE: Discussed with the staff, discussed with Dr. Smith. The patient with no chest pain or pressure. No palpitation, no shortness of breath, no groin pain. Wants to go home. MEDICATIONS: Reviewed. PHYSICAL EXAMINATION: VITAL SIGNS: Temperature 98, heart rate of 73, blood pressure 115/76, respiration rate 18. HEENT: Normocephalic, atraumatic, no acute distress. Pupils are equal. CARDIOVASCULAR: Regular rate and rhythm, systolic murmur. PULMONARY: With no wheezes or rhonchi. GASTROINTESTINAL: Soft, nontender. EXTREMITIES: With no significant lower extremity edema. NEUROLOGIC: Awake, alert. PSYCHIATRIC: Calm and pleasant. LABORATORY: Sodium 138, potassium 4.7, BUN of 24, creatinine 0.2, glucose of 142. WBC of 9.5, hemo globin 16.1, platelet 143. ASSESSMENT AND PLAN: 1. Acute anterior ST elevation myocardial infarction. 2. Multivessel coronary artery disease, status post PCI of the right coronary artery and left anter ior descending. 3. Status post renal failure, currently normalized. 4. Diabetes. 5. Hypertension. 6. Dyslipidemia. RECOMMENDATIONS: We will continue with the current cardiac care including aspirin, Brilinta, Losar garibay, Toprol-XL and statins. Discharge planning to be continued. Diabetic management as per interna l medicine. The patient has been scheduled to follow up with me on 07/10/2016. Dictated By: VANESSA DÍAZ MD AV/SMITH Conf#: [id number] DID#: [id number] CC: GABRIELLE SMITH MD;*EndCC*
[2016-06-28] MEDS ORDERED: POTASSIUM CHLORIDE (SR) 20 MEQ TAB PO STA (14:37)
--- NOTE | 2016-06-28 15:20 | RADRPT ---
Vent Rate: 86 bpm RR Interval: 0 msec [place] Interval: 192 msec QRS Duration: 134 msec QT Interval: 368 msec QTC Interval: 440 msec P-R-T Dafter: 65 - 0 - 60 degrees Normal sinus rhythm Possible Left atrial enlargement Right bundle branch block Anteroseptal infarct , age undetermined Abnormal ECG Electronically Signed By: Pierre Krause [id number]
--- NOTE | 2016-06-28 15:26 | RADRPT ---
Vent Rate: 96 bpm RR Interval: 0 msec DC Interval: 194 msec QRS Duration: 128 msec QT Interval: 338 msec QTC Interval: 427 msec P-R-T [place]: 58 - 0 - 41 degrees Normal sinus rhythm Right bundle branch block Abnormal ECG Electronically Signed By: Pierre Krause [id number]
--- NOTE | 2016-06-29 06:10 | DS ---
DATE OF ADMISSION: 06/24/2016 DATE OF DISCHARGE: 06/28/2016 CONSULTANTS: 1. Mukund Leon MD 2. Brian Adair DO DIAGNOSES: 1. ST elevation myocardial infarction, status post cardiac arrest and PCI in right coronary artery. Continue Brilinta and aspirin, statin. 2. Diabetes mellitus type 2. Continue insulin and home medication. 3. Essential hypertension well controlled on medical management. 4. Dyslipidemia. Continue statin. 5. History of tobacco use. Smoking cessation has been advised. Nicotine patch was recommended. 6. Multiple 3-vessel coronary artery disease as above. 7. Acute renal insufficiency, resolved. 8. History of chronic obstructive pulmonary disease with history of smoking. The patient has been started on Combivent. MEDICATIONS: 1. Aspirin. 2. Lipitor. 3. Colace. 4. Losartan. 5. Metoprolol. 6. Brilinta. 7. Nicotine patch. 8. Diazepam. 9. Trulicity. 10. ____. 11. Nitroglycerin. 12. Januvia. 13. Ultram. 14. Ambien. 15. Invokamet. ALLERGIES: NO KNOWN DRUG ALLERGIES. DISPOSITION: Home. DIET: Low carb, low salt diet. HOSPITAL COURSE: This is a pleasant 60-year-old gentleman with past medical history of diabetes padmini litus, hypertension, dyslipidemia, smoking who presented to [facility] secondary t o having chest discomfort. Upon evaluation in the ER, the patient was found to have STEMI and was im mediately taken to cardiac catheterization lab by Dr. Leon. He had it was very difficult to get th e LAD open. The patient had successful PTCA stent thrombectomy of the right coronary artery using 4 .0 x 220 mm Synergy drug-eluting stent. The patient tolerated the procedure and was taken to ICU, w here he was started on aspirin, Brilinta, statin and beta erik. He was monitored in ICU for 24 h ours, which he did pretty well and had very good outcome. Essentially he was transferred to telemetr y floor which he was continued on aggressive medical management. He was found to have some wheezing ; therefore, his Coreg was discontinued and was transitioned to metoprolol. He was also placed on br eathing treatment. I had a long discussion with him regarding his history of nicotine dependency an d he has been planning to discontinue this habit. This morning, the patient's vitals were stable wi th temperature of 98.0, pulse 83, respiration 18, blood pressure 115/____, oxygen 97% denied having any chest pain, shortness of breath, nausea, vomiting, diarrhea, or any other discomfort. Regarding his diabetes mellitus, his sugar was well controlled on Lantus. His labs: WBC 9.5, hemoglobin 16. 1, hematocrit 48.4, platelet 143. Sodium 138, potassium 4.7, chloride 103, bicarbonate 29, BUN 24, creatinine 1.24, glucose 142, calcium 9.2. His lipid panel found to have triglyceride 158, LDL 87, H DL 47. As per cardiology, he is stable to be discharged home with a close followup with primary car e physician and cardiology as outpatient. Dictated By: GABRIELLE GUZMAN/SMITH Conf#: [id number] DID#: [id number]
== END 2016-06-28 14:45 | disposition home or self-care (01) | DRG 246 ==
LOC: EDBD 17:38 → E/R 17:38 → CCL 17:54 → SDS 17:54 → ICU 19:57 → CCL 19:57 → UNDOFXSDCSVC 06-25 02:08 → UNDOFXSDCACCOM 06-25 02:08 → SDS 06-25 02:08 → ICU 06-25 02:08 → UNDOADMIN 06-25 02:10 → CCL 06-25 02:10 → ICU 06-25 02:10 → MS4 06-26 20:41
PROVIDERS: ADMIT Family Medicine; ATTEND Family Medicine
PROC: 027034Z Dilation of Coronary Artery, One Artery with Drug-eluting Intraluminal Device, Percutaneous Approach (ICD-10-PCS; principal; 2016-06-24)
PROC: 4A023N7 Measurement of Cardiac Sampling and Pressure, Left Heart, Percutaneous Approach (ICD-10-PCS; 2016-06-24)
PROC: 027034Z Dilation of Coronary Artery, One Artery with Drug-eluting Intraluminal Device, Percutaneous Approach (ICD-10-PCS; 2016-06-25)
DX: I21.09 ST elevation (STEMI) myocardial infarction involving other coronary artery of anterior wall (principal); I50.43 Acute on chronic combined systolic (congestive) and diastolic (congestive) heart failure; N17.9 Acute kidney failure, unspecified; E11.22 Type 2 diabetes mellitus with diabetic chronic kidney disease; E87.1 Hypo-osmolality and hyponatremia; N39.0 Urinary tract infection, site not specified; I23.7 Postinfarction angina; I13.0 Hypertensive heart and chronic kidney disease with heart failure and stage 1 through stage 4 chronic kidney disease, or unspecified chronic kidney disease; E78.5 Hyperlipidemia, unspecified; F17.200 Nicotine dependence, unspecified, uncomplicated; I45.10 Unspecified right bundle-branch block; I25.118 Atherosclerotic heart disease of native coronary artery with other forms of angina pectoris; E87.5 Hyperkalemia; Z85.118 Personal history of other malignant neoplasm of bronchus and lung; G47.30 Sleep apnea, unspecified; J44.9 Chronic obstructive pulmonary disease, unspecified; N18.9 Chronic kidney disease, unspecified
CPT/HCPCS: 36415; 71010; 76775; 80048; 80053; 80061; 80076; 80162; 81001; 81003; 82043; 82550; 82553; 82962; 83735; 83880; 84100; 84155; 84300; 84439; 84443; 84484; 85025; 85610; 85730; 87081; 93005; 93306; 93454; 93458; 96374; 96375; J0583; J1940; C1725; C1757; C1769; C1874; C1887; C1894; C9600; C9606; J0132; J1644; J1815; J2250; J2270; J2405; J3010; J7030; J7040; Q9967

== ENCOUNTER 2017-02-02 11:54 | Inpatient (IN) | payer MEDICARE, MEDICAID ==
[~2017-02-02] VITALS: Ht 172.7 cm; Wt 96.2 kg
[~2017-02-02 11:54] MED LIST: ASPI-664 PO; ATOR80TA75 PO; CANA1TAB8 PO; DIAZ10TA4 PO; DOCU-216 PO; DULA1.5P SQ; ICOS1CAP PO; LOSA25TA2 PO; METO-335 PO; NITR0.4T32 SL; Nicotine (14 Mg/24 Hr) TRANSDERM; SITA100T8 PO; TICA90TA PO; TRAM-40 PO; ZOLP10TA5 PO
[2017-02-02 11:59] VITALS: Ht 172.7 cm; Wt 96.2 kg
[2017-02-02] MEDS ORDERED: VANCOMYCIN 1 GM (PMX) 250 ML IVPB SCH (15:00)
[2017-02-02] MEDS ORDERED: CEFTRIAXONE 1 GM/50 ML (PMX) 50 ML IVPB ONE (15:00)
--- NOTE | 2017-02-02 15:02 | ERD ---
ER Documentation Chief Complaint Chief Complaint Pt with syncopal episode 7 days ago, LAC to R foot. [facility] [place]. HPI Patient is a 61-year-old male who presents with sudden onset, constant, moderate pain to his right second toe after he experienced a syncopal event in his home 3-4 days ago. He states that he does not recall the episode but awoke on the ground and had trauma to his face, right hand and right foot. The patient is right-hand dominant. He reports that he has had increased swelling to the foot since that time. The patient denies fever or purulent drainage. He reports mild headache. He reports low back pain that he thinks is related to the fall. He denies chest pain, shortness of breath, dizziness, vomiting. He is on antiplatelet agent. ROS All systems reviewed and are negative except as per history of present illness. Medications Home Meds Active Scripts Docusate Sodium (Dok) 100 Mg Capsule, 100 MG PO DAILY Y for CONSTIPATION, #20 CAP Prov:GABRIELLE SMITH MD 06/28/16 Aspirin* (Aspirin* EC) 81 Mg Tablet.dr, 81 MG PO DAILY, #30 Prov:GABRIELLE SMITH MD 06/28/16 Metoprolol Succinate* (Toprol XL*) 25 Mg Tab.sr.24h, 25 MG PO BID, #60 Prov:GABRIELLE SMITH MD 06/28/16 Losartan Potassium* (Cozaar*) 25 Mg Tablet, 25 MG PO DAILY, #30 TAB Prov:GABRIELLE SMITH MD 06/28/16 Atorvastatin* (Atorvastatin*) 80 Mg Tablet, 80 MG PO DAILY@21, #30 TAB 2 Refills Prov:GABRIELLE SMITH MD 06/28/16 Ticagrelor* (Brilinta*) 90 Mg Tablet, 90 MG PO BID for 30 Days, #60 TAB Prov:GABRIELLE SMITH MD 06/28/16 Canagliflozin/Metformin HCl (Invokamet Xr 150-1,000 mg Tab) 1 Each Tab.bp.24h, 1 TAB PO BID, #60 TAB Prov:GABRIELLE SMITH MD 06/28/16 Reported Medications Dulaglutide (Trulicity) 1.5 Mg/0.5 Ml Pen.injctr, 1.5 MG SQ Q7D 06/24/16 Zolpidem Tartrate* (Zolpidem Tartrate*) 10 Mg Tablet, 10 MG PO QHS Y for INSOMNIA, #30 TAB 06/24/16 Tramadol Hcl* (Ultram*) 50 Mg Tablet, 50 MG PO TID Y for PAIN, TAB 06/24/16 Sitagliptin* (Januvia*) 100 Mg Tablet, 100 MG PO DAILY, #30 TAB 06/24/16 Icosapent Ethyl (VASCEPA) 1 Gm Capsule, 2 GM PO BID, CAP 06/24/16 Diazepam* (Diazepam*) 10 Mg Tablet, 10 MG PO DAILY, TAB 06/24/16 Nitroglycerin* (Nitroglycerin* SL) 0.4 Mg Tab.subl, 0.4 MG SL Q5MIN Y for CHEST PAIN, BOTTLE 06/24/16 Discontinued Scripts [Nicotine (14 Mg/24 Hr)] 1 PATCH PATCH No Conflict Check, 1 PATCH TRANSDERM DAILY, #30 Prov:GABRIELLE SMITH MD 06/28/16 Allergies Allergies: Coded Allergies: No Known Allergy (Unverified , 02/02/17) PMhx/Soc Past medical history: Diabetes mellitus, hypertension, coronary artery disease Past surgical history: Cardiac stent, pneumonectomy Social history: Smokes cigarettes, occasional alcohol History of Surgery: No Anesthesia Reaction: No Hx Neurological Disorder: No Hx Respiratory Disorders: Yes ("removed part of lung") Hx Cardiac Disorders: Yes (HTN, AMI) Hx Psychiatric Problems: No Hx Alcohol Use: No Hx Substance Use: No Hx Tobacco Use: No Smoking Status: Former smoker FmHx Noncontributory Physical Exam Vitals Vital Signs Date Time Temp Pulse Resp B/P Pulse Ox O2 Delivery O2 Flow Rate FiO2 02/02/17 17:56 81 16 149/86 98 Room Air 02/02/17 17:04 18 92 21 02/02/17 11:59 97.5 88 18 140/81 94 Physical Exam Const: Alert, no acute distress Head: Atraumatic, Right infraorbital ecchymosis without bony tenderness or deformity Eyes: Normal Conjunctiva, No pallor, no icterus ENT: Normal External Ears, Nose and Mouth. Neck: Full range of motion..~ No meningismus. No midline tenderness Resp: Clear to auscultation bilaterally, Trace wheezes, no rales Cardio: Regular rate and rhythm, no murmurs Abd: Soft, non tender, non distended. Skin: No petechiae or rashes Back: Mid lumbar midline tenderness, no flank tenderness Ext: No cyanosis, or edema. Right second toe with medial deviation and laceration, soft tissue edema and erythema. Tenderness to right middle finger without obvious deformity. Neur: Awake and alert, Cranial nerves II through XII intact bilaterally, strength and sensation full in 4 extremities. Psych: Normal Mood and Affect Result Diagram: 02/02/17 1455 02/02/17 1455 Results 24 hrs Laboratory Tests Test 02/02/17 14:50 02/02/17 14:55 02/02/17 15:11 02/02/17 16:00 Erythrocyte Sedimentation Rate 5mm/Hr White Blood Count 10.410^3/ul Red Blood Count 5.4810^6/ul Hemoglobin 17.4g/dl Hematocrit 51.1% Mean Corpuscular Volume 93.2fl Mean Corpuscular Hemoglobin 31.8pg Mean Corpuscular Hemoglobin Concent 34.1g/dl Red Cell Distribution Width 13.3% Platelet Count 01155^3/UL Mean Platelet Volume 10.4fl Neutrophils % 61.8% Lymphocytes % 25.1% Monocytes % 8.8% Eosinophils % 3.1% Basophils % 0.4% Nucleated Red Blood Cells % 0.0/100WBC Neutrophils # 6.410^3/ul Lymphocytes # 2.610^3/ul Monocytes # 0.910^3/ul Eosinophils # 0.310^3/ul Basophils # 0.010^3/ul Nucleated Red Blood Cells # 0.010^3/ul Sodium Level 142mmol/L Potassium Level 4.3mmol/L Chloride Level 101mmol/L Carbon Dioxide Level 31mmol/L Anion Gap 14 Blood Urea Nitrogen 33mg/dl Creatinine 1.53mg/dl Glucose Level 116mg/dl Calcium Level 9.2mg/dl Troponin I < 0.012ng/ml Bedside Glucose 110mg/dL Urine Color YELLOW Urine Clarity CLEAR Urine pH 5.0 Urine Specific [place] 1.013 Urine Ketones NEGATIVEmg/dL Urine Nitrite NEGATIVEmg/dL Urine Bilirubin NEGATIVEmg/dL Urine Urobilinogen NEGATIVEmg/dL Urine Leukocyte Esterase NEGATIVELeu/ul Urine Microscopic RBC 1/HPF Urine Microscopic WBC 0/HPF Urine Hemoglobin NEGATIVEmg/dL Urine Glucose NEGATIVEmg/dL Urine Total Protein 2+mg/dl Current Medications Medications (Trade) Dose Ordered Sig/Mick Route PRN Reason Start Time Stop Time Status Last Admin Dose Admin Vancomycin HCl 250 ml @ 125 mls/hr ONCE IVPB 02/02/17 15:00 02/02/17 16:59 DC 02/02/17 16:55 Ceftriaxone Sodium (Rocephin) 50 ml @ 100 mls/hr ONCE ONCE IVPB 02/02/17 15:00 02/02/17 15:29 DC 02/02/17 16:18 Albuterol (Proventil 0.083% (Neb)) 5 mg ONCE STAT HHN 02/02/17 16:42 02/02/17 16:43 DC 02/02/17 17:02 Etomidate (Amidate) 12 mg ONCE ONCE IV 02/02/17 17:00 02/02/17 17:01 DC Procedures/MDM EKG read by me: Time 1508, rate 85 Rhythm: Normal sinus [place]: Normal Intervals: Right bundle branch block ST-T waves: no ischemic changes Ectopy: No Q-waves: Septal Q waves Impression: No evidence of ischemia or arrhythmia Procedural Sedation: Pre-assessment performed. See preceding complete history and physical for details. Time out performed. See sedation documentation for details. Risk, benefits and alternatives were discussed with the patient. Medication(s): Etomidate Complications: No hypoxic or apneic events Once adequate sedation was achieved, the patient's right second toe was manipulated with traction and an attempt to reduce the dislocation. Multiple attempts were unsuccessful. Recovered without incident. 1828: Spoke with Dr. Miller, orthopedic surgeon on-call. Dr. Miller requested podiatry to be consulted. 1838: Spoke with Dr. Guerra, requested panel to admit. MDM: Patient is a 61-year-old male with a dislocation of the right second toe with laceration suggestive of open joint. The patient has evidence of cellulitis but no purulent drainage. The patient was sedated for reduction, but I was unable to reduce the dislocation. The cause of the dislocation was a likely syncopal event. Workup for syncope is unremarkable. Patient will be admitted for podiatry consultation for possible open reduction and joint washout. He was given antibiotics for cellulitis. He had wheeze, suggestive of COPD, which responded well to albuterol nebulizer. Departure Diagnosis: Primary Impression: Open dislocation of toe Encounter type: initial encounter Laterality: right Qualified Code: S93.104A - Open dislocation of phalanx of foot, right, initial encounter Additional Impressions: Cellulitis Site of cellulitis: extremity Site of cellulitis of extremity: toe Laterality: right Qualified Code: L03.031 - Cellulitis of toe of right foot COPD (chronic obstructive pulmonary disease) COPD type: unspecified COPD Qualified Code: J44.9 - Chronic obstructive pulmonary disease, unspecified COPD type Syncope Syncope type: unspecified Qualified Code: R55 - Syncope, unspecified syncope type Condition: MEETA Martinez MD Feb 02, 2017 15:02
[2017-02-02 15:20] LABS: BASOPHILS % 0.4 % (0.0-2.0); EOSINOPHILS # 0.3 10^3/ul (0.0-0.5); EOSINOPHILS % 3.1 % (0.0-7.0); HEMATOCRIT 51.1 % (42.0-52.0); HEMOGLOBIN 17.4 g/dl (14.0-18.0); LYMPHOCYTES # 2.6 10^3/ul (0.8-2.9); LYMPHOCYTES % 25.1 % (15.0-51.0); MEAN CORPUSCULAR HEMOGLOBIN 31.8 pg (29.0-33.0); MEAN CORPUSCULAR HGB CONC 34.1 g/dl (32.0-37.0); MEAN CORPUSCULAR VOLUME 93.2 fl (82.0-101.0); MEAN PLATELET VOLUME 10.4 fl (7.4-10.4); MONOCYTE # 0.9 10^3/ul (0.3-0.9); MONOCYTES % 8.8 % (0.0-11.0); NEUTROPHIL # 6.4 10^3/ul (1.6-7.5); NEUTROPHILS % 61.8 % (39.0-77.0); PLATELET COUNT 151 10^3/UL (140-415); RED BLOOD COUNT 5.48 10^6/ul (4.70-6.10); RED CELL DISTRIBUTION WIDTH 13.3 % (11.5-14.5); WHITE BLOOD COUNT 10.4 10^3/ul (4.8-10.8)
--- NOTE | 2017-02-02 15:23 | RADRPT ---
PROCEDURE: CT BRAIN WITHOUT CONTRAST. CLINICAL INDICATION: Headache TECHNIQUE: A CT of the brain was performed on a multidetector high-resolution CT scanner utilizing axial imaging from the skull base through the vertex without IV contrast. Multiplanar reformatted images were made. Images were reviewed on a PACS workstation. The CTDIvol is 42.6 mGy and the DLP is an 120.2 mGycm. One or more of the following dose reduction techniques were used: - Automated exposure control. - Adjustment of the mA and/or kV according to patient size. - Use of iterative reconstruction technique. COMPARISON: None FINDINGS: The posterior fossa structures are unremarkable. The conchis, midbrain, and medulla appear to be with n ormal limits. There is no evidence of acute intracranial hemorrhage, infarct, or extra-axial fluid collection. No gross mass effect or midline shift. Cerebral sulci, cisternal spaces, and ventricles are mildly prom inent. The visualized paranasal sinuses are clear. The mastoid air cells are well-aerated. The calvarium is unremarkable. IMPRESSION: 1. No evidence of acute intracranial hemorrhage, infarct, or extra-axial fluid collection. 2. Age appropriate cortical atrophy. Otherwise, unremarkable CT brain. RPTAT: AAPP Physician Bradley Date Time Electronically viewed and signed by Physician Bradley on 02/02/2017 15:23 JASON/
[2017-02-02 15:51] LABS: ANION GAP 14 (8-16); BLOOD UREA NITROGEN 33 mg/dl (7-20); CALCIUM 9.2 mg/dl (8.4-10.2); CARBON DIOXIDE 31 mmol/L (21-31); CHLORIDE 101 mmol/L (97-110); CREATININE 1.53 mg/dl (0.61-1.24); GLUCOSE 116 mg/dl (70-220); POTASSIUM 4.3 mmol/L (3.5-5.1); SODIUM 142 mmol/L (135-144)
[2017-02-02 16:06] LABS: TROPONIN-I < 0.012 ng/ml (0.00-0.12)
--- NOTE | 2017-02-02 16:11 | RADRPT ---
PROCEDURE: XR Hand. CLINICAL INDICATION: Right hand pain TECHNIQUE: 3 views of the right hand were obtained. COMPARISON: No prior studies are available for comparison. FINDINGS: There is no acute fracture. Alignment is normal. Joint spaces are preserved. Soft tissues are grossly unremarkable. IMPRESSION: 1. No radiographic evidence of acute osseous abnormality of the right hand. RPTAT: UU .Jose Joyce MD, MD Date Time Electronically viewed and signed by .Jose Joyce MD, on 02/02/2017 16:11 .K/
--- NOTE | 2017-02-02 16:13 | RADRPT ---
PROCEDURE: XR Lumbar Spine. CLINICAL INDICATION: Low back pain TECHNIQUE: 4 images of the lumbar spine were obtained. COMPARISON: No prior studies are available for comparison. FINDINGS: There are 5 non rib-bearing lumbar type vertebral bodies. There is straightening of the usual lumbar lordosis otherwise height and alignment is preserved. There is no radiographic evidence of acute fracture or subluxation. There is mild multilevel degenerative disease with degenerative anterior enthesopathy throughout the lumbar spine. There is mild facet arthrosis at L4-L5 and L5-S1. There is an IVC filter. There is a left iliac stent. Limited assessment of the sacroiliac joints is grossly unremarkable. IMPRESSION: 1. No radiographic evidence of acute osseous abnormality noting straightening of the usual lumbar lo rdosis. 2. Mild multilevel degenerative changes as above. 3. IVC filter and left iliac stent. RPTAT: UU .Jose Joyce MD, Date Time Electronically viewed and signed by .Jose Joyce MD, on 02/02/2017 16:13 .K/
--- NOTE | 2017-02-02 16:14 | RADRPT ---
PROCEDURE: XR Foot. CLINICAL INDICATION: Right foot pain, fall TECHNIQUE: 3 views of the right foot are available for review. COMPARISON: None available FINDINGS: There is no acute fracture. There is dorsolateral dislocation at the second proximal interphalangeal joint. The remaining joint spaces are preserved. There is soft tissue swelling of the second digit. IMPRESSION: 1. Dorsolateral dislocation at the second proximal interphalangeal joint. 2. No definite acute osseous abnormality. RPTAT: UU .Jose Joyce MD, Date Time Electronically viewed and signed by .Jose Joyce MD, on 02/02/2017 16:14 .K/
--- NOTE | 2017-02-02 16:22 | RADRPT ---
PROCEDURE: XR Chest. CLINICAL INDICATION: Syncope. TECHNIQUE: Single frontal view. COMPARISON: 06/26/2016. FINDINGS: The lungs are clear. The heart is enlarged. Calcification is present in the aorta consistent with atherosclerosis. There is no pleural effusion. There is no pneumothorax. IMPRESSION: 1. Cardiomegaly and atherosclerosis. 2. Clear lungs. 3. Otherwise unremarkable chest radiograph. RPTAT: QQ .Bhupinder Marlow MD, MD Date Time Electronically viewed and signed by .Bhupinder Marlow MD, MD on 02/02/2017 16:21 .R/
[2017-02-02 16:30] LABS: ADD UMIC YES; UR ASCORBIC ACID NEGATIVE (NEGATIVE); UR BILIRUBIN (Dip) NEGATIVE (NEGATIVE); UR BLOOD (Dip) NEGATIVE (NEGATIVE); UR CLARITY CLEAR (CLEAR); UR COLOR YELLOW (YELLOW); UR GLUCOSE (Dip) NEGATIVE (NEGATIVE); UR KETONES (Dip) NEGATIVE (NEGATIVE); UR LEUKOCYTE ESTERASE (Dip) NEGATIVE Leu/ul (NEGATIVE); UR NITRITE (Dip) NEGATIVE (NEGATIVE); UR RBC 1 /HPF (0-5); UR SPECIFIC GRAVITY (Dip) 1.013 (1.003-1.030); UR TOTAL PROTEIN (Dip) 2+ mg/dl (NEGATIVE); UR UROBILINOGEN (Dip) NEGATIVE (NEGATIVE)
[2017-02-02] MEDS ORDERED: ALBUTEROL 0.083% (NEB) 2.5 MG/3 ML AMP HHN STA (16:42)
[2017-02-02] MEDS ORDERED: ETOMIDATE 20 MG INJ IV ONE (17:00)
[2017-02-02] MEDS ORDERED: morphine 4 MG/ML VIAL IV STA (18:57)
[2017-02-02] MEDS ORDERED: ONDANSETRON 4 MG INJ IV PRN (19:00)
[2017-02-02] MEDS ORDERED: ACETAMINOPHEN 325 MG TAB PO PRN (19:00)
[2017-02-02 20:58] VITALS: BP 169/93; RESP 18
[2017-02-02] MEDS ORDERED: ACCU-CHEK XX SCH (21:00)
[2017-02-02] MEDS: HYDROmorphONE 1 MG/ML SYG IV PRN (21:10)
[2017-02-02] MEDS: Insulin NOVOLOG SS MILD Algorithm (SS with meals and bedtime) SC SCH (21:20)
[2017-02-02] MEDS ORDERED: GLUCOSE GEL 15 GRAM TUBE PO PRN ×2 (21:30)
[2017-02-02] MEDS ORDERED: DEXTROSE 50% 50 ML SYRINGE IV PRN ×2 (21:30)
[2017-02-02] MEDS ORDERED: GLUCAGON 1 MG INJ IM PRN (21:30)
[2017-02-02] MEDS ORDERED: GLUCOSE GEL 15 GRAM TUBE BUCCAL PRN (21:30)
[2017-02-03] VITALS (12 sets, daily range): BP systolic 113–166; BP diastolic 67–84; PULSE 78–82; RESP 17–20
[2017-02-03] MEDS ORDERED: DOCUSATE SODIUM 100 MG CAP PO PRN
[2017-02-03] MEDS ORDERED: hydrALAzine 20 MG INJ IV PRN
[2017-02-03] MEDS: HYDROmorphONE 1 MG/ML SYG IV PRN ×3 (00:02→08:32)
[2017-02-03] MEDS: HYDROCODONE/APAP (10/325) TAB PO PRN ×3 (01:35→16:13)
[2017-02-03] MEDS: ACCUCHECK 2 AM XX SCH (01:37)
--- NOTE | 2017-02-03 05:20 | HP ---
Date/Time of Note Date/Time of Note DATE: 02/03/17 TIME: 05:01 Assessment/Plan VTE Prophylaxis VTE Prophylaxis Intervention: SCD's Lines/Catheters IV Catheter Type (from Nrsg): Saline Lock Assessment/Plan Assessment/Plan 1. Syncope -Patient found himself on the floor 4 days ago with minor bruising to the left side of his face and injury to right second toe. -Head CT negative for acute findings. EKG was no ST elevation or depression or arrhythmia. -Patient with history of STEMI with finding of triple-vessel disease in June of this year and is status post stent to RCA and LAD. -Continue telemetry monitoring -will order a 2D echo and trend his troponins -Check carotid Doppler ultrasound -Check orthostatics -Cardiology consult 2. Dorsolateral dislocation at the second proximal interphalangeal joint, with underlying cellulitis -IV antibiotic -Podiatry consult -Pain management -will leave the decision up to podiatry as far as obtaining additional imaging is concerned 3. Hx of STEMI with finding of multivessel CAD in 06/2016, status post PCI of the RCA and LAD -Continue his cardiac medications: Aspirin, Brilinta, statin, beta-erik, ARB -Cardiology consult given presentation of syncope 4. Hypertension -Continue antihypertensives adjustment as needed 5. COPD, with a history of partial lung resection -Supplemental oxygen -Bronchodilators as needed 6. Type 2 diabetes -Insulin while in-house HPI/ROS Admit Date/Time Admit Date/Time Feb 02, 2017 at 18:38 Hx of Present Illness This is a 61-year-old male with a history of STEMI with a finding of multivessel CAD in 06/2016, status post PCI of the RCA and LAD, type 2 diabetes, hypertension, COPD, history of partial lung resection who presented to the ER complaining of right foot swelling, right second toe and right hand pain. He said about 4 days ago he found himself on the floor with trauma to his face. Since then his been having progressively worsening right second toe and right hand pain as well as right foot swelling. He initially said he was not not sure what happened to him when he lost consciousness and found himself on the floor. But then he said the floor was wet and he slipped. He thinks he was unconscious for about 15 minutes. Denied having had chest pain, palpitation or lightheadedness. When he presented to the ER, vitals were stable. Head CT was no acute findings x-ray of the right foods shows Dorsolateral dislocation at the second proximal interphalangeal joint. Right hand x-ray was no acute findings. Lumbar x-ray and chest x-ray also without acute findings. PMH/Family/Social Social History Smoking Status: Heavy tobacco smoker Exam/Review of Systems Vital Signs Vitals Vital Signs Date Time Temp Pulse Resp B/P Pulse Ox O2 Delivery O2 Flow Rate FiO2 02/03/17 01:58 98.3 86 18 144/79 91 02/03/17 01:00 Nasal Cannula 2.0 02/02/17 17:04 21 Exam Constitutional: alert, oriented, well developed ENMT: other (Facial laceration) Respiratory: diminished breath sounds Cardiovascular: nl pulses, regular rate and rhythm Gastrointestinal: non-tender, soft Extremities: other (Right foods and the second toe swelling and erythema and tenderness. Right hand tenderness) Labs Result Diagram: 02/02/17 1455 02/02/17 1455 Medications Medications Current Medications Hydromorphone HCl (Dilaudid) 1 mg Q3H PRN IV severe pain Last administered on 02/03/17 04:28; Admin Dose 1 MG; Start 02/02/17 at 21:00 Acetaminophen/ Hydrocodone Bitart ([place] (10/325)) 1 tab Q4H PRN PO moderate pain Last administered on 02/03/17 01:35; Admin Dose 1 TAB; Start 02/02/17 at 21:00 Diagnostic Test (Pha) (Accu-Chek) 1 ea 02 XX Last administered on 02/03/17 01 :37; Admin Dose 1 EA; Start 02/02/17 at 21:30 Miscellaneous Information 1 ea NOTE XX ; Start 02/02/17 at 21:30 Glucose (Glutose) 15 gm Q15M PRN PO DECREASED GLUCOSE; Start 02/02/17 at 21:30 Glucose (Glutose) 22.5 gm Q15M PRN PO DECREASED GLUCOSE; Start 02/02/17 at 21: 30 Dextrose (D50w Syringe) 25 ml Q15M PRN IV DECREASED GLUCOSE; Start 02/02/17 at 21:30 Dextrose (D50w Syringe) 50 ml Q15M PRN IV DECREASED GLUCOSE; Start 02/02/17 at 21:30 Glucagon (Glucagen) 1 mg Q15M PRN IM DECREASED GLUCOSE; Start 02/02/17 at 21: 30 Glucose (Glutose) 15 gm Q15M PRN BUCCAL DECREASED GLUCOSE; Start 02/02/17 at 21:30 Aspirin (Halfprin) 81 mg DAILY PO ; Start 02/03/17 at 09:00 Atorvastatin Calcium (Lipitor) 80 mg DAILY@21 PO ; Start 02/03/17 at 21:00 Docusate Sodium (Colace) 100 mg DAILY PRN PO CONSTIPATION; Start 02/03/17 at 00:00 Losartan Potassium (Cozaar) 25 mg DAILY PO ; Start 02/03/17 at 09:00 Metoprolol Succinate (Toprol Xl) 25 mg BID PO ; Start 02/03/17 at 09:00 Ticagrelor (Brilinta) 90 mg BID PO ; Start 02/03/17 at 09:00 Tramadol HCl (Ultram) 50 mg TID PRN PO PAIN; Start 02/03/17 at 00:00 Zolpidem Tartrate (Ambien) 10 mg QHS PRN PO INSOMNIA; Start 02/03/17 at 00:00 Hydralazine HCl (Apresoline) 10 mg Q4H PRN IV SBP > 160; Start 02/03/17 at 00: 00 OSIEL JO MD Feb 03, 2017 05:13
[2017-02-03] MEDS ORDERED: NITROGLYCERIN (SL) 0.4 MG TAB SL PRN ×2 (05:30→21:00)
[2017-02-03 06:15] LABS: BASOPHIL # 0.1 10^3/ul (0.0-0.1); BASOPHILS % 0.7 % (0.0-2.0); EOSINOPHILS # 0.3 10^3/ul (0.0-0.5); EOSINOPHILS % 2.9 % (0.0-7.0); HEMATOCRIT 48.2 % (42.0-52.0); HEMOGLOBIN 16.2 g/dl (14.0-18.0); LYMPHOCYTES # 2.5 10^3/ul (0.8-2.9); LYMPHOCYTES % 25.2 % (15.0-51.0); MEAN CORPUSCULAR HEMOGLOBIN 30.9 pg (29.0-33.0); MEAN CORPUSCULAR HGB CONC 33.6 g/dl (32.0-37.0); MEAN CORPUSCULAR VOLUME 91.8 fl (82.0-101.0); MEAN PLATELET VOLUME 10.4 fl (7.4-10.4); MONOCYTES % 10.4 % (0.0-11.0); NEUTROPHILS % 60.1 % (39.0-77.0); PLATELET COUNT 146 10^3/UL (140-415); RED BLOOD COUNT 5.25 10^6/ul (4.70-6.10); RED CELL DISTRIBUTION WIDTH 13.2 % (11.5-14.5)
[2017-02-03 06:37] LABS: TROPONIN-I 0.014 ng/ml (0.00-0.12)
[2017-02-03 06:45] LABS: CK-MB 1.2 ng/ml (0.0-2.4)
[2017-02-03 06:50] LABS: ALBUMIN 3.8 g/dl (3.3-4.9); ALBUMIN/GLOBULIN RATIO 1.35; BILIRUBIN,INDIRECT 0.5 mg/dl (0-1.1); BILIRUBIN,TOTAL 0.5 mg/dl (0.2-1.3); CALCIUM 9.3 mg/dl (8.4-10.2); CHOL/HDL RATIO 2.9 RATIO; CREATININE 1.37 mg/dl (0.61-1.24); POTASSIUM 4.5 mmol/L (3.5-5.1); TOTAL PROTEIN 6.6 g/dl (6.1-8.1)
[2017-02-03 07:18] LABS: MAGNESIUM 1.6 mg/dl (1.7-2.5)
[2017-02-03] MEDS: Insulin NOVOLOG SS MILD Algorithm (SS with meals and bedtime) SC SCH ×4 (07:30→21:00)
[2017-02-03] MEDS: LOSARTAN 25 MG TAB PO SCH (08:25)
[2017-02-03] MEDS: ASPIRIN (EC) 81 MG TAB PO SCH (08:26)
[2017-02-03] MEDS: METOPROLOL (XL) 25 MG TAB PO SCH ×2 (08:26→22:08)
[2017-02-03] MEDS: TICAGRELOR 90 MG TABLET PO SCH ×2 (08:28→22:12)
[2017-02-03] MEDS ORDERED: HYDROmorphONE 1 MG/ML SYG IV PRN (09:00)
[2017-02-03] MEDS ORDERED: VANCOMYCIN IV PER PHARMACY XX SCH (09:00)
--- NOTE | 2017-02-03 09:40 | RADRPT ---
PROCEDURE: US Carotids. CLINICAL INDICATION: Bruit, syncope TECHNIQUE: Multiple sonographic of the carotid arteries were obtained utilizing dueñas scale imaging . Color and Doppler imaging was performed. The images were reviewed on a PACS workstation. COMPARISON: No prior studies are available for comparison. FINDINGS: RIGHT: CCA 76.8 cm/sec Prox ICA 47.5 cm/sec Mid ICA 56.6 cm/sec Dist ICA 43.5 cm/sec ECA 94.1 cm/sec ICA/CCA 0.9 LEFT: CCA 89.2 cm/sec Prox ICA 43.3 cm/sec Mid ICA 55.3 cm/sec Dist ICA 49.1 cm/sec ECA 52.5 cm/sec ICA/CCA 1.1 Antegrade flow is seen within the vertebral arteries bilaterally. Mild plaque is seen within the car otid system bilaterally. However, no evidence for hemodynamically significant stenosis or occlusion is identified. IMPRESSION: 1. Mild soft and calcific plaque without evidence for hemodynamically significant stenosis or occlu erika by NASCET criteria. 2. Antegrade flow seen within the vertebral arteries bilaterally. Please note: The validated velocity measurements with angiographic measurements, velocity criteria a re extrapolated from diameter data as defined by the Society of Radiologists in Ultrasound Consensus Conference Radiology 2003; 229;340-346. This study does indirectly reference the measurement of th e distal ICA diameter as the denominator for stenosis measurement. RPTAT: HH .Polina Guillory MD, Date Time Electronically viewed and signed by .Polina Guillory MD, MD on 02/03/2017 09:40 .G/
[2017-02-03] MEDS: CEFEPIME 1GM/50 ML (PMX) 50 ML IVPB SCH ×2 (09:47→22:08)
[2017-02-03] MEDS ORDERED: VANCOMYCIN 1.5 GM in SOD CHLORIDE 0.9% 250 ML IVPB SCH (11:00)
[2017-02-03 12:14] LABS: CREATINE KINASE 34 IU/L (23-200)
[2017-02-03 12:32] LABS: CK-MB 0.96 ng/ml (0.0-2.4); TROPONIN-I < 0.012 ng/ml (0.00-0.12)
[2017-02-03] MEDS: morphine 4 MG/ML VIAL IV PRN ×2 (14:59→20:23)
--- NOTE | 2017-02-03 15:43 | RADRPT ---
Echocardiogram Report Patient Name: MARTA FLEMING Gender: Male Date: 1955 Study Date: 03-Feb-2017 Analysis Engineer: Seble Munguia [facility] Location: 2240 Ref. Physician: OSIEL JO Quality: Good Procedures: Transthoracic echocardiogram with complete 2D, M-Mode, and doppler examination. Indications: Coronary Artery Disease. Syncope. 2D/M Mode Doppler Measurement Value Normal Ranges Measurement Value Normal Ranges LVIDd 2D 4.9 3.5 - 5.6 cm AV Peak Silver 1.8 m/sec LVIDs 2D 3.1 2.1 - 4.1 cm AV Peak PG 13.1 mmHg LVPWd 2D 1.1 0.6 - 1.1 cm LVOT Peak Silver 0.7 m/sec IVSd 2D 1.1 0.6 - 1.1 cm LVOT Peak PG 2.0 mmHg AoR Diam 2D 3.7 2.0 - 3.7 cm MV E Peak Silver 0.7 m/sec EDV 2D 113.3 cm3 MV A Peak Silver 0.9 m/sec ESV 2D 30.0 cm3 MV E/A 0.7 LA Dimen 2D 2.9 2.3 - 4.0 cm MV Decel Time 168 msec MV Decel [place] 4 MV E/A 0.7 Findings Left Ventricle: Normal left ventricular systolic function. Normal left ventricular cavity size. Mild concentric left ventricular hypertrophy. Ejection fraction is visually estimated at 60 %. Tissue Doppler/Mitral Doppler indices are consistent with impaired relaxation (Stage I diastolic dysfunction). Right Ventricle: Normal right ventricular size. Normal right ventricular systolic function. Left Atrium: The left atrium is normal in size. Right Atrium: The right atrium is normal in size. Mitral Valve: Mitral valve leaflets appear moderately thickened. Mild mitral annular calcification. Trace mitral regurgitation. Aortic Valve: Aortic sclerosis without stenosis. Trace aortic valve regurgitation. Tricuspid Valve: Normal appearance of the tricuspid valve. Unable to obtain RVSP due to minimal presence of tricuspid regurgitation. Pulmonic Valve: Pulmonic valve not well visualized. Pericardium: Normal pericardium with no significant pericardial effusion. Aorta: Normal aortic root. IVC: Normal size and normal respiratory collapse consistent with normal right atrial pressure. Conclusions 1.Normal left ventricular systolic function. Normal left ventricular cavity size. Mild concentric left ventricular hypertrophy. Ejection fraction is visually estimated at 60 %. Tissue Doppler/Mitral Doppler indices are consistent with impaired relaxation (Stage I diastolic dysfunction). 2.Mitral valve leaflets appear moderately thickened. Mild mitral annular calcification. Trace mitral regurgitation. 3.Aortic sclerosis without stenosis. Trace aortic valve regurgitation. 4.Normal appearance of the tricuspid valve. Unable to obtain RVSP due to minimal presence of tricuspid regurgitation. Electronically Signed By: Mukund Leon 03-Feb-2017 15:43:07 -0800 Patient Name: MARTA FLEMING Study Date: 03-Feb-[id number]
--- NOTE | 2017-02-03 16:10 | CONS ---
DATE OF ADMISSION: 02/02/2017 DATE OF CONSULTATION: 02/03/2017 HISTORY OF PRESENT ILLNESS: This is a 61-year-old gentleman who was admitted through the ER with hi story of a recent fall, status post syncopal episode sustained injury to his face and right second t oe. He was admitted with dislocation of the right second toe as well as cellulitis. The patient stein s a history of an CT 6 months ago and was treated here at [facility]. The patient states h e had attempted reduction of the toe dislocation without improvement. PAST MEDICAL HISTORY: History of a STEMI with multivessel coronary artery disease, hypertension, CO PD, type 2 diabetes, syncope, history of heavy tobacco use. MEDICATIONS: Include: 1. Vancomycin 2. Ceftriaxone. ALLERGIES: NONE. PHYSICAL EXAMINATION: GENERAL: Patient alert and oriented, in no acute distress. Regular respiration. Has bruising to t he right side of his face HEENT: Head is normocephalic. Trachea midline. CHEST: Regular respiration. EXTREMITIES: The patient a right foot with a dried sanguineous exudate. There is valgus dislocatio n of the toe. Pain with palpation. There is immediate capillary refill. There is presence of cell ulitis extending from to the level of the metatarsophalangeal joint. The patient has a 2+ DP pulse. Extremities are warm. No signs of decubitus pressure sore. DIAGNOSTIC STUDIES: Foot x-ray reveals a dorsal lateral dislocation of the 2nd proximal interphalang eal joint. Carotid Doppler. Mild soft and calcific plaque without evidence of hemodynamic signific ant stenosis. Brain CT: No evidence of acute intracranial hemorrhage. Hand x-ray: No osseous abno rmality. Lumbar spine x-ray: No radiographic evidence of osseous abnormality and mild multilevel degenerative changes.. LABORATORIES: WBC 10, hemoglobin 16.2, hematocrit 48.2, platelets 146. Sodium 144, potassium 4.5, chloride 105, CO2 32, BUN 30, creatinine 1.37. ASSESSMENT: 1. Right foot cellulitis. 2. Right foot ulceration plantar aspect laceration and dislocation. 3. Edema. 4. Pain. 5. History of CT. PLAN: Patient seen and evaluated, reviewed radiographs and the patient clinically. The patient cur rently in the process of being transferred to [facility] for further coordination of care. Attempts were made at reduction and suspect soft tissue limiting reduction and can proceed once medically cleared to the operating room for debridement, reduction with pinning of toe. Continue empiric antibiotics. Will coordinate the planned procedure. Discussed risks, benefits, potential complications. The p atient is amenable. Thank you for this consultation. We will continue to follow. Dictated By: MATTY HADDAD/SMITH Conf#: [id number] DID#: [id number] CC: MATTY GUO DPM;*EndCC*
--- NOTE | 2017-02-03 17:09 | CONS ---
Date/Time of Note Date/Time of Note DATE: 02/03/17 TIME: 16:59 Assessment/Plan Assessment/Plan Chief Complaint/Hosp Course 1. CV preop evaluation 2. R toe dislocation +/- cellulitis 3. hx severe multivessel CAD 4. S/P Anterior stemi 06/24/16 5. s/p PCI LAD, RCA using MEDINA 07/08 6. Dyslipidemia 7/ DM 8. HTN 9./ COPD 10. SMOKING 11. CKD Recommendations: I will continue the patient home medication including aspirin beta-erik statins. Losartan will be continued as well. Is currently optimized from the cardiac standpoint and no further cardiac workup would be indicated prior to surgery. From the cardiac standpoint is best not to withhold aspirin and Brilinta. However given the fact has already been more than 6 months since his last stent if foot surgery cannot be done on Brilinta then we will have no choice but hold the Brilinta will continue with aspirin. We will initiate the patient on inhalers for his COPD. Antibiotic as per internal medicine. Thank you for his referral will continue to follow along with you. VANESSA DÍAZ MD [facility] Problems: Consultation Date/Type/Reason Admit Date/Time Feb 02, 2017 at 18:38 Date of Consultation: Feb 03, 2017 Type of Consultation: cardiology Reason for Consultation CAD, cv preop evaluation Referring Provider: DUANE CHO NP Hx of Present Illness CC: S/P Fall. foot pain HPI: Thank you for his referral. History was obtained from the patient running from extensive review of the old chart. Patient also very well-known to me from outpatient workup. This is a 61-year-old pleasant gentleman with history of severe coronary artery disease status post anterior ST elevation myocardial infarction in June 24, 2016, with history of PCI of the LAD as well as right coronary artery using drug-eluting stents in June 2016 who came to the emergency room with above complaint. Patient states that he fell a few days ago. He said he woke up at nighttime was trying to walk and he slipped and he injured his foot. He has been having significant pain and discomfort in the foot which did not go away and finally decided to come to emergency room. He was noted to have dislocation and possibly cellulitis around the toe. He has been evaluated by podiatry and was recommended to undergo surgery. We were kindly asked to evaluate and treat. Patient denies any chest pain or pressure to me. He states that he does not walk much due to his foot pain. He still smokes and he still has occasional shortness of breath and wheezing. Allergies no known drug allergies Past medical history: As above Social history patient is trying to quit smoking but he is still smoking. Family history no reported coronary artery disease. Medications as per medical reconciliation which was personally reviewed. ROS: as above only. he denies all others except for above Social History Smoking Status: Heavy tobacco smoker Exam/Review of Systems Vital Signs Vitals Vital Signs Date Time Temp Pulse Resp B/P Pulse Ox O2 Delivery O2 Flow Rate FiO2 02/03/17 16:19 81 02/03/17 15:36 98.3 17 118/76 94 02/03/17 15:34 3.0 02/03/17 14:40 Room Air 02/02/17 17:04 21 Intake and Output 02/02/17 02/02/17 02/03/17 14:59 22:59 06:59 Intake Total 240 ml Balance 240 ml Exam General: obese. no acute distress HEENT: NC/AT. pupils are equal. round. NECK: NO JVD. no stridor. CV: RRR. systolic murmur; no gallop or rubs. PULM: + wheezing or rhonchi. GI: SOFT, NT, ND, no rebound or guarding Extremity: trace B/L LE edema. no clubbing. right foot toe dislocated and echymosis. neuro: awake and alert, OX3. Psych: calm and pleasant rectal: deferred ECG reviewed NSR RBBB, septal infarct right foot xray 1. Dorsolateral dislocation at the second proximal interphalangeal joint. 2. No definite acute osseous abnormality. Results Result Diagram: 02/03/17 0544 02/03/17 0545 Results 24 hrs Laboratory Tests Test 02/02/17 21:08 02/03/17 01:37 02/03/17 05:44 02/03/17 05:45 Bedside Glucose 187 110 White Blood Count 10.0 Red Blood Count 5.25 Hemoglobin 16.2 Hematocrit 48.2 Mean Corpuscular Volume 91.8 Mean Corpuscular Hemoglobin 30.9 Mean Corpuscular Hemoglobin Concent 33.6 Red Cell Distribution Width 13.2 Platelet Count 146 Mean Platelet Volume 10.4 Neutrophils % 60.1 Lymphocytes % 25.2 Monocytes % 10.4 Eosinophils % 2.9 Basophils % 0.7 Nucleated Red Blood Cells % 0.0 Neutrophils # 6.0 Lymphocytes # 2.5 Monocytes # 1.0 H Eosinophils # 0.3 Basophils # 0.1 Nucleated Red Blood Cells # 0.0 Hemoglobin A1c 6.4 H Sodium Level 144 Potassium Level 4.5 Chloride Level 105 Carbon Dioxide Level 32 H Anion Gap 12 Blood Urea Nitrogen 30 H Creatinine 1.37 H Glucose Level 90 Calcium Level 9.3 Magnesium Level 1.6 L Total Bilirubin 0.5 Direct Bilirubin 0.00 Indirect Bilirubin 0.5 Aspartate Amino Transf (AST/SGOT) 23 Alanine Aminotransferase (ALT/SGPT) 29 Alkaline Phosphatase 61 Creatine Kinase 40 Creatine Kinase Index 3.0 Creatinine Kinase MB (Mass) 1.20 Troponin I 0.014 Total Protein 6.6 Albumin 3.8 Globulin 2.80 Albumin/Globulin Ratio 1.35 Triglycerides Level 85 Cholesterol Level 101 LDL Cholesterol, Calculated 50 HDL Cholesterol 34 Cholesterol/HDL Ratio 2.9 Test 02/03/17 07:58 02/03/17 11:32 02/03/17 11:52 Bedside Glucose 126 173 Creatine Kinase 34 Creatine Kinase Index 2.8 Creatinine Kinase MB (Mass) 0.96 Troponin I < 0.012 Medications Medications Current Medications Acetaminophen/ Hydrocodone Bitart ([place] (10325)) 1 tab Q4H PRN PO moderate pain Last administered on 02/03/17 16:13; Admin Dose 1 TAB; Start 02/02/17 at 21:00 Diagnostic Test (Pha) (Accu-Chek) 1 ea 02 XX Last administered on 02/03/17 01 :37; Admin Dose 1 EA; Start 02/02/17 at 21:30 Miscellaneous Information 1 ea NOTE XX ; Start 02/02/17 at 21:30 Glucose (Glutose) 15 gm Q15M PRN PO DECREASED GLUCOSE; Start 02/02/17 at 21:30 Glucose (Glutose) 22.5 gm Q15M PRN PO DECREASED GLUCOSE; Start 02/02/17 at 21: 30 Dextrose (D50w Syringe) 25 ml Q15M PRN IV DECREASED GLUCOSE; Start 02/02/17 at 21:30 Dextrose (D50w Syringe) 50 ml Q15M PRN IV DECREASED GLUCOSE; Start 02/02/17 at 21:30 Glucagon (Glucagen) 1 mg Q15M PRN IM DECREASED GLUCOSE; Start 02/02/17 at 21: 30 Glucose (Glutose) 15 gm Q15M PRN BUCCAL DECREASED GLUCOSE; Start 02/02/17 at 21:30 Aspirin (Halfprin) 81 mg DAILY PO Last administered on 02/03/17 08:26; Admin Dose 81 MG; Start 02/03/17 at 09:00 Atorvastatin Calcium (Lipitor) 80 mg DAILY@21 PO ; Start 02/03/17 at 21:00 Docusate Sodium (Colace) 100 mg DAILY PRN PO CONSTIPATION; Start 02/03/17 at 00:00 Losartan Potassium (Cozaar) 25 mg DAILY PO Last administered on 02/03/17 08: 25; Admin Dose 25 MG; Start 02/03/17 at 09:00 Metoprolol Succinate (Toprol Xl) 25 mg BID PO Last administered on 02/03/17 08:26; Admin Dose 25 MG; Start 02/03/17 at 09:00 Ticagrelor (Brilinta) 90 mg BID PO Last administered on 02/03/17 08:28; Admin Dose 90 MG; Start 02/03/17 at 09:00 Tramadol HCl (Ultram) 50 mg TID PRN PO PAIN; Start 02/03/17 at 00:00 Zolpidem Tartrate (Ambien) 10 mg QHS PRN PO INSOMNIA; Start 02/03/17 at 00:00 Hydralazine HCl (Apresoline) 10 mg Q4H PRN IV SBP > 160; Start 02/03/17 at 00: 00 Nitroglycerin (Nitroglycerin (Sl Tab) 0.4 Mg) 1 tab Q5M PRN SL ANGINA; Start 02/03/17 at 05:30 Influenza Virus Vaccine (Fluzone) 0.5 ml ONCE ONCE IM* ; Start 02/04/17 at 09: 00; Stop 02/04/17 at 09:01 Morphine Sulfate 4 mg 4 mg Q4H PRN IV PAIN Last administered on 02/03/17 14: 59; Admin Dose 4 MG; Start 02/03/17 at 09:00 Cefepime HCl (Maxipime 1gm/50 ml (Pmx)) 50 ml @ 100 mls/hr Q12 IVPB Last administered on 02/03/17 09:47; Admin Dose 100 MLS/HR; Start 02/03/17 at 09: 00 Insulin Glargine 14 unit 14 unit DAILY@08 SC ; Start 02/04/17 at 08:00 Vancomycin HCl/ Dextrose/Water (Vancocin/D5W) 150 ml @ 75 mls/hr Q12H IVPB ; Start 02/03/17 at 23:00 VANESSA DÍAZ MD Feb 03, 2017 17:09
[2017-02-03] MEDS: INSULIN ASPART [NOVOLOG] 3 ML PEN SC SCH (18:06)
[2017-02-03] MEDS ORDERED: morphine 4 MG/ML VIAL IV STA (18:07)
[2017-02-03] MEDS ORDERED: MAG SULFATE 2GM IN 50 ML IVPB ONE (21:30)
[2017-02-03] MEDS ORDERED: MAGNESIUM SULFATE (GM) 50% 2 ML INJ IVPB ONE (21:30)
[2017-02-03] MEDS: SALMETEROL/FLUTICASONE 500/50 INHA INH SCH (22:07)
[2017-02-03] MEDS: ATORVASTATIN 80 MG TAB PO SCH (22:08)
[2017-02-03] MEDS ORDERED: VANCOMYCIN 1 GM in NS 250 ML IVPB SCH (23:00)
[2017-02-03] MEDS: VANCOMYCIN 750 MG in DEXTROSE 5% 150 ML IVPB SCH (23:00)
[2017-02-03] MEDS: ZOLPIDEM 5 MG TAB PO PRN (23:50)
[2017-02-04] VITALS (19 sets, daily range): BP systolic 103–148; BP diastolic 66–93; PULSE 72–82; RESP 15–21
[2017-02-04] MEDS: VANCOMYCIN 750 MG in DEXTROSE 5% 150 ML IVPB SCH ×3 (00:45→23:26)
--- NOTE | 2017-02-04 01:42 | CONS ---
DATE OF ADMISSION: 02/03/2017 DATE OF CONSULTATION: NEPHROLOGY CONSULTATION REASON FOR CONSULTATION: Chronic kidney disease. PHYSICIAN REQUESTING CONSULT: Dr. Jo HISTORY OF PRESENT ILLNESS: This is a 61-year-old male with a past medical history of coronary simran ry disease, diabetes, hypertension, COPD, history of partial lung resection, who presented to the ER complaining of right foot swelling of the second toe. The patient said he had trauma approximately 4 days ago. He has progressively developed increasing swelling of his foot. The patient, as a res ult, came to the emergency room. Upon arrival, the patient had laboratory data drawn, which showed a BUN of 33, creatinine 1.53. The patient had imaging studies including a foot x-ray, which showed dislocation of the second phalanx. The patient, in the emergency room, was started on IV fluids, IV antibiotics and admitted to telemetry for further evaluation. In terms of patient's renal history, the patient's baseline creatinine was around 1.24 mg/dL. The p atient denies any recent NSAID use. Denies any recent antibiotic exposure, any rashes. Denies any frothy urine. Denies hemoptysis or hematochezia. PAST MEDICAL HISTORY: As stated above, history of hypertension, diabetes. PAST SURGICAL HISTORY: The patient had previous back surgery. ALLERGIES: NO KNOWN DRUG ALLERGIES. SOCIAL HISTORY: Positive for smoking. FAMILY HISTORY: Noncontributory. MEDICATIONS: Reviewed. REVIEW OF SYSTEMS: A 14-point review of systems was conducted, pertinent positives stated in the HP I, otherwise negative. PHYSICAL EXAMINATION: VITAL SIGNS: Blood pressure is 140/80, respiration is 20, pulse 86, temperature 98.6. HEENT: Head is normocephalic. NECK: Supple. HEART: Regular rate. LUNGS: Show diminished sounds at the base. ABDOMEN: Soft, nontender to palpation. No rebound or guarding. EXTREMITIES: Negative for clubbing, cyanosis. Positive swelling of patient's right toe with underl pari erythema. DERMATOLOGIC: No rashes. MUSCULOSKELETAL: No joint effusions. NEUROLOGIC: No change in exam. MEDICATIONS: The patient's medications have been reviewed. LABORATORY DATA: Shows a CBC within normal limits. Sodium 144, potassium 4.5, BUN 30, creatinine 1 .37. IMAGING STUDIES: As stated in HPI. ASSESSMENT AND PLAN: 1. Nonoliguric acute kidney injury on top of chronic kidney disease with a previous baseline creati nine around 1.24 mg/dL. Etiology of acute kidney injury may be secondary to hemodynamics. po ssible progression of underlying chronic kidney disease. The patient's urinalysis is bland, no acti ve sediment, positive proteinuria. The patient's previous renal ultrasound was reviewed in June ich showed normal study. Plan at this point would be to repeat urinalysis. We will check urine yogi ctrolytes, calculate a FENa. Would otherwise continue current treatment plan, supportive care and r enally dose all meds. I will monitor closely. 2. Mineral bone disorder. Monitor calcium and phosphorus levels. 3. Hypertension. Continue current blood pressure regimen, monitor closely on Cozaar. 4. Cellulitis of the second phalanx. Continue current antibiotic therapy. Follow up with podiatry . 5. History of coronary artery disease . Continue current medical management. 6. Chronic obstructive pulmonary disease with history of partial lung resection. Continue suppleme ntal oxygen. 7. Diabetes. Continue Accu-Cheks, insulin sliding scale. Dictated By: FROYLAN GOULD DO NR/NTS Conf#: [id number] DID#: [id number] CC: OSIEL JO MD;*End*
[2017-02-04] MEDS: ACCUCHECK 2 AM XX SCH (02:00)
[2017-02-04 03:31] LABS: BASOPHIL # 0.1 10^3/ul (0.0-0.1); BASOPHILS % 0.7 % (0.0-2.0); EOSINOPHILS # 0.4 10^3/ul (0.0-0.5); EOSINOPHILS % 4.4 % (0.0-7.0); HEMATOCRIT 47.3 % (42.0-52.0); HEMOGLOBIN 15.8 g/dl (14.0-18.0); LYMPHOCYTES # 2.4 10^3/ul (0.8-2.9); LYMPHOCYTES % 28.9 % (15.0-51.0); MEAN CORPUSCULAR HGB CONC 33.4 g/dl (32.0-37.0); MEAN CORPUSCULAR VOLUME 92.7 fl (82.0-101.0); MEAN PLATELET VOLUME 10.8 fl (7.4-10.4); MONOCYTE # 0.9 10^3/ul (0.3-0.9); MONOCYTES % 10.3 % (0.0-11.0); NEUTROPHIL # 4.6 10^3/ul (1.6-7.5); PLATELET COUNT 148 10^3/UL (140-415); RED CELL DISTRIBUTION WIDTH 13.5 % (11.5-14.5); WHITE BLOOD COUNT 8.4 10^3/ul (4.8-10.8)
[2017-02-04 03:50] LABS: CHOL/HDL RATIO 3.2 RATIO
[2017-02-04 03:52] LABS: CALCIUM 9.2 mg/dl (8.4-10.2); CREATININE 1.41 mg/dl (0.61-1.24); POTASSIUM 4.5 mmol/L (3.5-5.1)
--- NOTE | 2017-02-04 07:23 | CONS ---
Date/Time of Note Date/Time of Note DATE: 02/04/17 TIME: 07:17 Assessment/Plan Assessment/Plan Chief Complaint/Hosp Course Right foot cellulitis, originating from right 2nd toe injury site. Continue IV Abx. Local wound care to consist of gentamicin ointment and DSD until Surgery is performed. Right foot, 2nd toe dislocation/fracture at PIPJ, lateral deviation. Coordination of care and clearance for surgery pending. Will plan for surgical ORIF of the right 2nd toe. Will monitor. Problems: Consultation Date/Type/Reason Admit Date/Time Feb 03, 2017 at 11:34 Initial Consult Date 02/03/17 Type of Consultation: Podiatry: Dr.Belczyk torres Reason for Consultation Right 2nd toe fracture/dislocation and right foot cellulitis. Exam/Review of Systems Vital Signs Vitals Vital Signs Date Time Temp Pulse Resp B/P Pulse Ox O2 Delivery O2 Flow Rate FiO2 02/04/17 04:32 98.0 65 18 113/69 96 02/03/17 15:34 3.0 02/03/17 14:40 Room Air 02/02/17 17:04 21 Intake and Output 02/03/17 02/03/17 02/04/17 14:59 22:59 06:59 Intake Total 540 ml 120 ml Output Total 450 ml Balance 540 ml -330 ml Exam Right foot cellulitis, originating from right 2nd toe injury site. Right foot, 2nd toe dislocation/fracture at PIPJ, lateral deviation. Results Result Diagram: 02/04/17 0259 02/04/17 0259 Results 24 hrs Laboratory Tests Test 02/03/17 07:58 02/03/17 11:32 02/03/17 11:52 02/03/17 17:42 Bedside Glucose 126 173 137 Creatine Kinase 34 Creatine Kinase Index 2.8 Creatinine Kinase MB (Mass) 0.96 Troponin I < 0.012 Test 02/03/17 21:05 02/03/17 21:42 02/04/17 02:59 Troponin I 0.014 < 0.012 Bedside Glucose 152 White Blood Count 8.4 Red Blood Count 5.10 Hemoglobin 15.8 Hematocrit 47.3 Mean Corpuscular Volume 92.7 Mean Corpuscular Hemoglobin 31.0 Mean Corpuscular Hemoglobin Concent 33.4 Red Cell Distribution Width 13.5 Platelet Count 148 Mean Platelet Volume 10.8 H Neutrophils % 55.0 Lymphocytes % 28.9 Monocytes % 10.3 Eosinophils % 4.4 Basophils % 0.7 Nucleated Red Blood Cells % 0.0 Neutrophils # 4.6 Lymphocytes # 2.4 Monocytes # 0.9 Eosinophils # 0.4 Basophils # 0.1 Nucleated Red Blood Cells # 0.0 Sodium Level 143 Potassium Level 4.5 Chloride Level 105 Carbon Dioxide Level 27 Anion Gap 16 Blood Urea Nitrogen 34 H Creatinine 1.41 H Glucose Level 156 Calcium Level 9.2 Phosphorus Level 4.0 Magnesium Level 2.0 Triglycerides Level 96 Cholesterol Level 108 LDL Cholesterol, Calculated 56 HDL Cholesterol 33 Cholesterol/HDL Ratio 3.2 Medications Medications Current Medications Acetaminophen/ Hydrocodone Bitart ([place] ()) 1 tab Q4H PRN PO moderate pain Last administered on 02/03/17 16:13; Admin Dose 1 TAB; Start 02/02/17 at 21:00 Diagnostic Test (Pha) (Accu-Chek) 1 ea 02 XX Last administered on 02/03/17 01 :37; Admin Dose 1 EA; Start 02/02/17 at 21:30 Miscellaneous Information 1 ea NOTE XX ; Start 02/02/17 at 21:30 Glucose (Glutose) 15 gm Q15M PRN PO DECREASED GLUCOSE; Start 02/02/17 at 21:30 Glucose (Glutose) 22.5 gm Q15M PRN PO DECREASED GLUCOSE; Start 02/02/17 at 21: 30 Dextrose (D50w Syringe) 25 ml Q15M PRN IV DECREASED GLUCOSE; Start 02/02/17 at 21:30 Dextrose (D50w Syringe) 50 ml Q15M PRN IV DECREASED GLUCOSE; Start 02/02/17 at 21:30 Glucagon (Glucagen) 1 mg Q15M PRN IM DECREASED GLUCOSE; Start 02/02/17 at 21: 30 Glucose (Glutose) 15 gm Q15M PRN BUCCAL DECREASED GLUCOSE; Start 02/02/17 at 21:30 Aspirin (Halfprin) 81 mg DAILY PO Last administered on 02/03/17 08:26; Admin Dose 81 MG; Start 02/03/17 at 09:00 Atorvastatin Calcium (Lipitor) 80 mg DAILY@21 PO Last administered on 22:08; Admin Dose 80 MG; Start 02/03/17 at 21:00 Docusate Sodium (Colace) 100 mg DAILY PRN PO CONSTIPATION; Start 02/03/17 at 00:00 Losartan Potassium (Cozaar) 25 mg DAILY PO Last administered on 02/03/17 08: 25; Admin Dose 25 MG; Start 02/03/17 at 09:00 Metoprolol Succinate (Toprol Xl) 25 mg BID PO Last administered on 02/03/17 22:08; Admin Dose 25 MG; Start 02/03/17 at 09:00 Ticagrelor (Brilinta) 90 mg BID PO Last administered on 02/03/17 22:12; Admin Dose 90 MG; Start 02/03/17 at 09:00 Tramadol HCl (Ultram) 50 mg TID PRN PO PAIN; Start 02/03/17 at 00:00 Zolpidem Tartrate (Ambien) 10 mg QHS PRN PO INSOMNIA Last administered on 02/03 23:50; Admin Dose 10 MG; Start 02/03/17 at 00:00 Hydralazine HCl (Apresoline) 10 mg Q4H PRN IV SBP > 160; Start 02/03/17 at 00: 00 Influenza Virus Vaccine (Fluzone) 0.5 ml ONCE ONCE IM* ; Start 02/04/17 at 09: 00; Stop 02/04/17 at 09:01 Morphine Sulfate 4 mg 4 mg Q4H PRN IV PAIN Last administered on 02/03/17 20: 23; Admin Dose 4 MG; Start 02/03/17 at 09:00 Cefepime HCl (Maxipime 1gm/50 ml (Pmx)) 50 ml @ 100 mls/hr Q12 IVPB Last administered on 02/03/17 22:08; Admin Dose 100 MLS/HR; Start 02/03/17 at 09: 00 Insulin Glargine 14 unit 14 unit DAILY@08 SC ; Start 02/04/17 at 08:00 Vancomycin HCl/ Dextrose/Water (Vancocin/D5W) 150 ml @ 75 mls/hr Q12H IVPB Last administered on 02/04/17 00:45; Admin Dose 75 MLS/HR; Start 02/03/17 at 23:00 Salmeterol Xinafoate/ Fluticasone (Advair 500/50 Diskus) 1 inh BID INH Last administered on 02/03/17 22:07; Admin Dose 1 INH; Start 02/03/17 at 21:00 Nitroglycerin (Nitroglycerin (Sl Tab) 0.4 Mg) 1 tab Q5M PRN SL ANGINA; Start 02/03/17 at 21:00 NATHAN BENITEZ DPM Feb 04, 2017 07:23
[2017-02-04] MEDS ORDERED: GENTAMICIN 0.1% 15 GM OINT TOP ONE (07:30)
[2017-02-04] MEDS: METOPROLOL (XL) 25 MG TAB PO SCH ×2 (08:23→20:18)
[2017-02-04] MEDS: TICAGRELOR 90 MG TABLET PO SCH ×2 (08:23→22:09)
[2017-02-04] MEDS: CEFEPIME 1GM/50 ML (PMX) 50 ML IVPB SCH ×2 (08:23→20:30)
[2017-02-04] MEDS: ASPIRIN (EC) 81 MG TAB PO SCH (08:24)
[2017-02-04] MEDS: SALMETEROL/FLUTICASONE 500/50 INHA INH SCH ×2 (08:24→20:08)
[2017-02-04] MEDS: LOSARTAN 25 MG TAB PO SCH (08:24)
[2017-02-04] MEDS: morphine 4 MG/ML VIAL IV PRN ×4 (08:26→21:29)
[2017-02-04] MEDS: INSULIN GLARGINE [LANtus] 3 ML PEN SC SCH (08:35)
[2017-02-04] MEDS: Insulin NOVOLOG SS MILD Algorithm (SS with meals and bedtime) SC SCH ×4 (08:39→20:18)
[2017-02-04] MEDS: INSULIN ASPART [NOVOLOG] 3 ML PEN SC SCH ×3 (08:41→18:00)
[2017-02-04] MEDS ORDERED: INFLUENZA VIRUS VACCINE 0.5 ML (DISPENSING) IM* ONE (09:00)
--- NOTE | 2017-02-04 09:21 | PN ---
DATE: 02/04/2017 SUBJECTIVE: The patient is stable. No events overnight. No fevers, chills, nausea, or vomiting. OBJECTIVE: VITAL SIGNS: Blood pressure is 148/83, respirations 17, pulse 85, temperature 98.2. HEENT: Head is normocephalic. NECK: Supple. HEART: Regular rate. LUNGS: Show diminished breath sounds at the base. ABDOMEN: Soft, nontender to palpation without rebound or guarding. EXTREMITIES: Negative for clubbing, cyanosis, no edema. DERMATOLOGIC: No rashes. MUSCULOSKELETAL: No joint effusions. NEUROLOGIC: No change in exam. MEDICATIONS: The patient's medications have been reviewed. LABORATORY DATA: Shows sodium 143, potassium 4.5, BUN 34, creatinine 1.41. ASSESSMENT AND PLAN: 1. Nonoliguric acute kidney injury on top of chronic kidney disease with previous baseline creatini ne 1.24 mg/dL. Etiology of acute kidney injury is secondary to hemodynamics, possible progression o f chronic kidney disease. The patient's urinalysis is bland. Renal function has been fluctuating, slowly improving. At this point, continue current treatment plan, supportive care, renally dose all medicines. 2. Mineral bone disorder. Monitor calcium and phosphorus levels. 3. Hypertension. Continue current blood pressure regimen and monitor closely on Cozaar. 4. Cellulitis. Continue current antibiotic regimen. Follow up with podiatry. 5. History of coronary artery disease. Continue medical management. 6. Chronic obstructive pulmonary disease with right partial lung resection. Continue supplemental oxygen. 7. Diabetes. Continue Accu-Cheks, insulin sliding scale. Dictated By: FROYLAN VALADEZ/SMITH Conf#: [id number] DID#: [id number]
--- NOTE | 2017-02-04 10:09 | PN ---
Date/Time of Note Date/Time of Note DATE: 02/04/17 TIME: 10:08 Assessment/Plan VTE Prophylaxis VTE Prophylaxis Intervention: contraindicated Lines/Catheters IV [facility] Peripheral IV Assessment/Plan Chief Complaint/Hosp Course 1. Right foot cellulitis with right foot ulceration of the plantar aspect with dorsolateral dislocation of the second proximal interphalangeal joint. Continue antimicrobials. The patient being followed by podiatry. Plan for surgical ORIF of the right second toe. 2. Status post fall at home. The fall could be mechanical since the patient verbalized that he slipped over something on the floor. However, the possibility of syncope is not ruled out. The patient's brain CT scan was negative for any acute findings. Bilateral carotid Doppler study showing mild soft and calcific plaque without evidence for hemodynamically significant stenosis with antegrade flow seen within the vertebral arteries bilaterally. Check orthostatic vital signs. 3. CAD. Status post PCI with drug-eluting stent to the LAD and RCA in June 2016. Continue dual antiplatelet therapy. 4. Type 2 diabetes mellitus. Hemoglobin A1c 6.4. Continue sliding scale insulin with pre-meal insulin and Lantus insulin. 5. Dyslipidemia. Continue statins. 6. COPD. Continue inhaled bronchodilators. No evidence of any exacerbation. 7. Acute on chronic kidney disease. Avoid nephrotoxic medications. The patient being followed by nephrology. 8. Nicotine use. Cessation advised. 9. Fluids, electrolytes, and nutrition. Was on carbohydrate controlled diet. We will keep n.p.o. for surgical intervention of the right foot. 10. DVT prophylaxis. On hold for surgical intervention. 11. Plan. Continue antimicrobials. Await surgical intervention to the right foot. Case discussed with Dr. Aponte. Problems: Subjective 24 Hr Interval Summary Free Text/Dictation Denies any chest pain. Complains of right foot pain. Exam/Review of Systems Vital Signs Vitals Vital Signs Date Time Temp Pulse Resp B/P Pulse Ox O2 Delivery O2 Flow Rate FiO2 02/04/17 08:13 79 02/04/17 08:01 98.2 17 148/83 91 02/03/17 15:34 3.0 02/03/17 14:40 Room Air 02/02/17 17:04 21 Intake and Output 02/03/17 02/03/17 02/04/17 15:00 23:00 07:00 Intake Total 540 ml 120 ml 550 ml Output Total 450 ml Balance 540 ml -330 ml 550 ml Exam General: Obese, 61 year-old male lying in bed in no apparent distress. HEENT: Normocephalic, atraumatic. Eyes: Anicteric sclerae, conjunctivae clear. ENT: Nasal septum midline, oral mucosa moist. Neck supple, no JVD noticed. Respiratory: Bilaterally clear breath sounds. No use of accessory muscles of respiration. No adventitious breath sounds. Cardiovascular: S1, S2 heard. Regular rate and rhythm. Abdomen: Soft, nontender, and nondistended. Bowel sounds positive in all 4 quadrants. Genitourinary: Deferred. Extremities: No cyanosis. Peripheral pulses palpable. Right foot erythema around proximal second toe with tenderness to touch and warmth to touch. Neurologic: Cranial nerves II through XII grossly intact. The patient is awake, alert, and oriented. Results Result Diagram: 02/04/17 0259 02/04/17 0259 Results 24 hrs Laboratory Tests Test 02/03/17 11:32 02/03/17 11:52 02/03/17 17:42 02/03/17 21:05 Creatine Kinase 34 Creatine Kinase Index 2.8 Creatinine Kinase MB (Mass) 0.96 Troponin I < 0.012 0.014 Bedside Glucose 173 137 Test 02/03/17 21:42 02/04/17 02:59 02/04/17 08:02 02/04/17 08:12 Bedside Glucose 152 144 White Blood Count 8.4 Red Blood Count 5.10 Hemoglobin 15.8 Hematocrit 47.3 Mean Corpuscular Volume 92.7 Mean Corpuscular Hemoglobin 31.0 Mean Corpuscular Hemoglobin Concent 33.4 Red Cell Distribution Width 13.5 Platelet Count 148 Mean Platelet Volume 10.8 H Neutrophils % 55.0 Lymphocytes % 28.9 Monocytes % 10.3 Eosinophils % 4.4 Basophils % 0.7 Nucleated Red Blood Cells % 0.0 Neutrophils # 4.6 Lymphocytes # 2.4 Monocytes # 0.9 Eosinophils # 0.4 Basophils # 0.1 Nucleated Red Blood Cells # 0.0 Sodium Level 143 Potassium Level 4.5 Chloride Level 105 Carbon Dioxide Level 27 Anion Gap 16 Blood Urea Nitrogen 34 H Creatinine 1.41 H Glucose Level 156 Calcium Level 9.2 Phosphorus Level 4.0 Magnesium Level 2.0 Troponin I < 0.012 0.012 Triglycerides Level 96 Cholesterol Level 108 LDL Cholesterol, Calculated 56 HDL Cholesterol 33 Cholesterol/HDL Ratio 3.2 Medications Medications Current Medications Acetaminophen/ Hydrocodone Bitart ([place] (10)) 1 tab Q4H PRN PO moderate pain Last administered on 02/03/17 16:13; Admin Dose 1 TAB; Start 02/02/17 at 21:00 Diagnostic Test (Pha) (Accu-Chek) 1 ea 02 XX Last administered on 02/03/17 01 :37; Admin Dose 1 EA; Start 02/02/17 at 21:30 Miscellaneous Information 1 ea NOTE XX ; Start 02/02/17 at 21:30 Glucose (Glutose) 15 gm Q15M PRN PO DECREASED GLUCOSE; Start 02/02/17 at 21:30 Glucose (Glutose) 22.5 gm Q15M PRN PO DECREASED GLUCOSE; Start 02/02/17 at 21: 30 Dextrose (D50w Syringe) 25 ml Q15M PRN IV DECREASED GLUCOSE; Start 02/02/17 at 21:30 Dextrose (D50w Syringe) 50 ml Q15M PRN IV DECREASED GLUCOSE; Start 02/02/17 at 21:30 Glucagon (Glucagen) 1 mg Q15M PRN IM DECREASED GLUCOSE; Start 02/02/17 at 21: 30 Glucose (Glutose) 15 gm Q15M PRN BUCCAL DECREASED GLUCOSE; Start 02/02/17 at 21:30 Aspirin (Halfprin) 81 mg DAILY PO Last administered on 02/04/17 08:24; Admin Dose 81 MG; Start 02/03/17 at 09:00 Atorvastatin Calcium (Lipitor) 80 mg DAILY@21 PO Last administered on 22:08; Admin Dose 80 MG; Start 02/03/17 at 21:00 Docusate Sodium (Colace) 100 mg DAILY PRN PO CONSTIPATION; Start 02/03/17 at 00:00 Losartan Potassium (Cozaar) 25 mg DAILY PO Last administered on 02/04/17 08: 24; Admin Dose 25 MG; Start 02/03/17 at 09:00 Metoprolol Succinate (Toprol Xl) 25 mg BID PO Last administered on 02/04/17 08:23; Admin Dose 25 MG; Start 02/03/17 at 09:00 Ticagrelor (Brilinta) 90 mg BID PO Last administered on 02/03/17 22:12; Admin Dose 90 MG; Start 02/03/17 at 09:00 Tramadol HCl (Ultram) 50 mg TID PRN PO PAIN; Start 02/03/17 at 00:00 Zolpidem Tartrate (Ambien) 10 mg QHS PRN PO INSOMNIA Last administered on 02/03 23:50; Admin Dose 10 MG; Start 02/03/17 at 00:00 Hydralazine HCl (Apresoline) 10 mg Q4H PRN IV SBP > 160; Start 02/03/17 at 00: 00 Morphine Sulfate 4 mg 4 mg Q4H PRN IV PAIN Last administered on 02/04/17 08: 26; Admin Dose 4 MG; Start 02/03/17 at 09:00 Cefepime HCl (Maxipime 1gm/50 ml (Pmx)) 50 ml @ 100 mls/hr Q12 IVPB Last administered on 02/04/17 08:23; Admin Dose 100 MLS/HR; Start 02/03/17 at 09: 00 Insulin Glargine 14 unit 14 unit DAILY@08 SC Last administered on 02/04/17 08 :35; Admin Dose 14 UNIT; Start 02/04/17 at 08:00 Vancomycin HCl/ Dextrose/Water (Vancocin/D5W) 150 ml @ 75 mls/hr Q12H IVPB Last administered on 02/04/17 00:45; Admin Dose 75 MLS/HR; Start 02/03/17 at 23:00 Salmeterol Xinafoate/ Fluticasone (Advair 500/50 Diskus) 1 inh BID INH Last administered on 02/04/17 08:24; Admin Dose 1 INH; Start 02/03/17 at 21:00 Nitroglycerin (Nitroglycerin (Sl Tab) 0.4 Mg) 1 tab Q5M PRN SL ANGINA; Start 02/03/17 at 21:00 Gentamicin Sulfate (Gentamicin 0.1% Oint) 1 applic DAILY TOP ; Start 02/04/17 at 09:00 DUANE CHO NP Feb 04, 2017 10:09
[2017-02-04] MEDS: HYDROCODONE/APAP (10/325) TAB PO PRN (11:09)
[2017-02-04] MEDS: GENTAMICIN 0.1% 15 GM OINT TOP SCH (11:10)
--- NOTE | 2017-02-04 13:52 | CONS ---
DATE OF ADMISSION: 02/02/2017 DATE OF CONSULTATION: 02/04/2017 TYPE OF CONSULTATION: Infectious Disease. REASON FOR CONSULTATION: Antibiotic management. HISTORY OF PRESENT ILLNESS: Aquilino Ely is a 61-year-old male who has a history of ST elevation m yocardial infarction who comes in now with syncope and is being seen for antibiotic management. His past problems include: 1. Coronary artery disease with history of STEMI. 2. Status post percutaneous coronary intervention of the right coronary artery and left anterior de scending. 3. Adult-onset diabetes mellitus. 4. Hypertension. 5. COPD. 6. Partial lung resection. The patient presented to the ER complaining of right foot swelling, especially of the right second t oe as well as right hand pain. He stated that 4 days prior to admission he found himself on the joe or with trauma to his face. His right second toe has been getting progressively worse, as is his ri ght hand and the right foot is swollen. He was not sure what happened. He said the floor was wet a nd he slipped. He thinks he was unconscious for 15 minutes. Denies any history of chest pain or li ghtheadedness. In the emergency room, a CT scan of the brain showed no acute findings. Dorsal late ral dislocation at the second proximal interphalangeal joint of the right hand was found. A lumbar x-ray and chest x-ray had no acute findings. PAST MEDICAL HISTORY: Positive for hypertension, COPD with history of lung resection. He is a heav y smoker. On admission, his white count is 10.4, H and H 17.4 and 51.1, platelet count 151. BUN and creatinin e 33/1.53. Random glucose of 116,000. HOSPITAL COURSE: A lumbar spine x-ray showed IVC filter, left iliac stent. No radiographic evidenc e of acute osseous abnormalities. There is some straightening of the usual lumbar lordosis, mild mu ltilevel degenerative changes as above. There 5 non-rib bearing lumbar type vertebral bodies. X-ra y of the hand was negative. X-ray of the foot was negative. Chest x-ray clear. CT scan of the bra in: Age appropriate cortical atrophy. Carotid Doppler study: Mild soft and calcific plaque withou t evidence for hemodynamically significant stenosis or occlusion by NASCET criteria antegrade flow i s seen within the vertebral arteries bilaterally. Currently, the patient has nonoliguric renal fail ure with BUN and creatinine of 34/1.41. He has some cellulitis and for that he is on antibiotic the rapy in the form of vancomycin and cefepime. The patient was seen by Dr. Eros Disla of podiatry who noted that the right foot has dried sangu ineous exudate with obvious dislocation of the toe, presence of cellulitis extending to the level of the metatarsophalangeal joint. PHYSICAL EXAMINATION: GENERAL: The patient was alert and oriented, in no acute distress. He has some bruising to the rig ht side of his face. SKIN: Without generalized rash. HEENT: As noted. NECK: Supple. LYMPH NODES: None palpable. CHEST: Decreased breath sounds at the bases. HEART: Without murmur or gallop. ABDOMEN: Soft, nontender, without organosplenomegaly or masses. EXTREMITIES: Cellulitis of the right foot. IMPRESSION AND PLAN: The patient is currently on appropriate antibiotic therapy. We will continue him on vancomycin. We may want to change his cefepime to Levaquin. I will dictate my findings to [facility] hospitalist, Dr. Adair and also to Dr. Disla. Dictated By: HERNAN CHICAS MD, JD/SMITH Conf#: [id number] DID#: [id number] CC: OSIEL JO MD;*End*
--- NOTE | 2017-02-04 15:58 | CONS ---
Date/Time of Note Date/Time of Note DATE: 02/04/17 TIME: 15:56 Consult Date/Type/Reason Admit Date/Time Feb 02, 2017 at 18:38 Initial Consult Date 02/03/17 Type of Consultation: CARD Subjective CARDIOLOGY FOLLOW UP NOTE: S: pt with no chest pain or pressure no syncope or presyncope d/w staff and rhythm was reviewed. pt remains in NSR O: General: obese. no acute distress HEENT: NC/AT. pupils are equal. round. NECK: NO JVD. no stridor. CV: RRR. systolic murmur; no gallop or rubs. PULM: + wheezing or rhonchi. GI: SOFT, NT, ND, no rebound or guarding Extremity: trace B/L LE edema. no clubbing. right foot toe dislocated and echymosis. neuro: awake and alert, OX3. Psych: calm and pleasant rectal: deferred ECG reviewed NSR RBBB, septal infarct right foot xray 1. Dorsolateral dislocation at the second proximal interphalangeal joint. 2. No definite acute osseous abnormality. Objective Vital Signs Date Time Temp Pulse Resp B/P Pulse Ox O2 Delivery O2 Flow Rate FiO2 02/04/17 15:23 98.3 76 17 134/76 91 02/03/17 15:34 3.0 02/03/17 14:40 Room Air 02/02/17 17:04 21 Intake and Output 02/03/17 02/03/17 02/04/17 15:00 23:00 07:00 Intake Total 540 ml 120 ml 550 ml Output Total 450 ml Balance 540 ml -330 ml 550 ml Results/Medications Result Diagram: 02/04/17 0259 02/04/17 0259 Results 24 hrs Laboratory Tests Test 02/03/17 17:42 02/03/17 21:05 02/03/17 21:42 02/04/17 02:59 Bedside Glucose 137 152 Troponin I 0.014 < 0.012 White Blood Count 8.4 Red Blood Count 5.10 Hemoglobin 15.8 Hematocrit 47.3 Mean Corpuscular Volume 92.7 Mean Corpuscular Hemoglobin 31.0 Mean Corpuscular Hemoglobin Concent 33.4 Red Cell Distribution Width 13.5 Platelet Count 148 Mean Platelet Volume 10.8 H Neutrophils % 55.0 Lymphocytes % 28.9 Monocytes % 10.3 Eosinophils % 4.4 Basophils % 0.7 Nucleated Red Blood Cells % 0.0 Neutrophils # 4.6 Lymphocytes # 2.4 Monocytes # 0.9 Eosinophils # 0.4 Basophils # 0.1 Nucleated Red Blood Cells # 0.0 Sodium Level 143 Potassium Level 4.5 Chloride Level 105 Carbon Dioxide Level 27 Anion Gap 16 Blood Urea Nitrogen 34 H Creatinine 1.41 H Glucose Level 156 Calcium Level 9.2 Phosphorus Level 4.0 Magnesium Level 2.0 Triglycerides Level 96 Cholesterol Level 108 LDL Cholesterol, Calculated 56 HDL Cholesterol 33 Cholesterol/HDL Ratio 3.2 Test 02/04/17 08:02 02/04/17 08:12 02/04/17 12:31 Troponin I 0.012 Bedside Glucose 144 156 Medications Current Medications Acetaminophen/ Hydrocodone Bitart ([place] ()) 1 tab Q4H PRN PO moderate pain Last administered on 02/04/17 11:09; Admin Dose 1 TAB; Start 02/02/17 at 21:00 Diagnostic Test (Pha) (Accu-Chek) 1 ea 02 XX Last administered on 02/03/17 01 :37; Admin Dose 1 EA; Start 02/02/17 at 21:30 Miscellaneous Information 1 ea NOTE XX ; Start 02/02/17 at 21:30 Glucose (Glutose) 15 gm Q15M PRN PO DECREASED GLUCOSE; Start 02/02/17 at 21:30 Glucose (Glutose) 22.5 gm Q15M PRN PO DECREASED GLUCOSE; Start 02/02/17 at 21: 30 Dextrose (D50w Syringe) 25 ml Q15M PRN IV DECREASED GLUCOSE; Start 02/02/17 at 21:30 Dextrose (D50w Syringe) 50 ml Q15M PRN IV DECREASED GLUCOSE; Start 02/02/17 at 21:30 Glucagon (Glucagen) 1 mg Q15M PRN IM DECREASED GLUCOSE; Start 02/02/17 at 21: 30 Glucose (Glutose) 15 gm Q15M PRN BUCCAL DECREASED GLUCOSE; Start 02/02/17 at 21:30 Aspirin (Halfprin) 81 mg DAILY PO Last administered on 02/04/17 08:24; Admin Dose 81 MG; Start 02/03/17 at 09:00 Atorvastatin Calcium (Lipitor) 80 mg DAILY@21 PO Last administered on 22:08; Admin Dose 80 MG; Start 02/03/17 at 21:00 Docusate Sodium (Colace) 100 mg DAILY PRN PO CONSTIPATION; Start 02/03/17 at 00:00 Losartan Potassium (Cozaar) 25 mg DAILY PO Last administered on 02/04/17 08: 24; Admin Dose 25 MG; Start 02/03/17 at 09:00 Metoprolol Succinate (Toprol Xl) 25 mg BID PO Last administered on 02/04/17 08:23; Admin Dose 25 MG; Start 02/03/17 at 09:00 Ticagrelor (Brilinta) 90 mg BID PO Last administered on 02/03/17 22:12; Admin Dose 90 MG; Start 02/03/17 at 09:00 Tramadol HCl (Ultram) 50 mg TID PRN PO PAIN; Start 02/03/17 at 00:00 Zolpidem Tartrate (Ambien) 10 mg QHS PRN PO INSOMNIA Last administered on 02/03 23:50; Admin Dose 10 MG; Start 02/03/17 at 00:00 Hydralazine HCl (Apresoline) 10 mg Q4H PRN IV SBP > 160; Start 02/03/17 at 00: 00 Morphine Sulfate 4 mg 4 mg Q4H PRN IV PAIN Last administered on 02/04/17 12: 28; Admin Dose 4 MG; Start 02/03/17 at 09:00 Cefepime HCl (Maxipime 1gm/50 ml (Pmx)) 50 ml @ 100 mls/hr Q12 IVPB Last administered on 02/04/17 08:23; Admin Dose 100 MLS/HR; Start 02/03/17 at 09: 00 Insulin Glargine 14 unit 14 unit DAILY@08 SC Last administered on 02/04/17 08 :35; Admin Dose 14 UNIT; Start 02/04/17 at 08:00 Vancomycin HCl/ Dextrose/Water (Vancocin/D5W) 150 ml @ 75 mls/hr Q12H IVPB Last administered on 02/04/17 11:10; Admin Dose 75 MLS/HR; Start 02/03/17 at 23:00 Salmeterol Xinafoate/ Fluticasone (Advair 500/50 Diskus) 1 inh BID INH Last administered on 02/04/17 08:24; Admin Dose 1 INH; Start 02/03/17 at 21:00 Nitroglycerin (Nitroglycerin (Sl Tab) 0.4 Mg) 1 tab Q5M PRN SL ANGINA; Start 02/03/17 at 21:00 Gentamicin Sulfate (Gentamicin 0.1% Oint) 1 applic DAILY TOP Last administered on 02/04/17t 11:10; Admin Dose 1 APPLIC; Start 02/04/17 at 09:00 Miscellaneous Information (*Rx Drug Level Order Reminder*) VANCOMYCIN TROUGH ON 01/22... ONCE ONCE XX ; Start 02/04/17 at 22:00; Stop 02/04/17 at 22:01 Assessment/Plan Chief Complaint/Hosp Course 1. CV preop evaluation 2. R toe dislocation +/- cellulitis 3. hx severe multivessel CAD 4. S/P Anterior stemi 06/24/16 5. s/p PCI LAD, RCA using MEDINA 07/08 6. Dyslipidemia 7/ DM 8. HTN 9./ COPD 10. SMOKING 11. CKD Recommendations: I will continue the patient home medication including aspirin beta-erik statins. Losartan will be continued as well. Is currently optimized from the cardiac standpoint and no further cardiac workup would be indicated prior to surgery. From the cardiac standpoint is best not to withhold aspirin and Brilinta. However given the fact has already been more than 6 months since his last stent if foot surgery cannot be done on Brilinta then we will have no choice but hold the Brilinta will continue with aspirin. We will i patient on inhalers for his COPD. Antibiotic as per internal medicine/ ID rec f/u Podiatry rec Thank you for his referral will continue to follow along with you. VANESSA DÍAZ MD [facility] Problems: VANESSA DÍAZ MD Feb 04, 2017 15:58
--- NOTE | 2017-02-04 17:42 | HPN ---
Date/Time of Note Date/Time of Note DATE: 02/04/17 TIME: 17:42 Interval H&P Admission Note Pt. seen H&P reviewed: No system changes MATTY GUO DPM Feb 04, 2017 17:42
[2017-02-04] MEDS ORDERED: CEFAZOLIN 1 GM INJ ONE (18:00)
[2017-02-04] MEDS ORDERED: LIDOCAINE 2% (SDV) 5 ML INJ ONE (18:00)
[2017-02-04] MEDS ORDERED: FENTAnyl 50 MCG/ML VIAL ONE (18:02)
[2017-02-04] MEDS ORDERED: POLYMYXIN/BACITRACIN 1L IRRIG ONE (18:03)
[2017-02-04] MEDS ORDERED: LIDOCAINE 1% (MPF) 30 ML INJ ONE ×2 (18:03→18:11)
[2017-02-04] MEDS ORDERED: FENTAnyl 50 MCG/ML VIAL IV PRN ×2 (18:30)
[2017-02-04] MEDS ORDERED: MEPERIDINE 25 MG INJ IV PRN (18:30)
[2017-02-04] MEDS ORDERED: HYDROmorphONE (0.2 MG/ML) 10ML SYG IV PRN ×3 (18:30)
[2017-02-04] MEDS ORDERED: DIPHENHYDRAMINE 50 MG INJ IV PRN (18:30)
[2017-02-04] MEDS ORDERED: ONDANSETRON 4 MG INJ IV PRN (18:30)
[2017-02-04] MEDS ORDERED: PROPOFOL 20 ML ONE (18:38)
--- NOTE | 2017-02-04 18:40 | SIPON ---
Date/Time of Note Date/Time of Note DATE: 02/04/17 TIME: 18:37 Operative Report Preoperative Diagnosis Right 2nd toe open dislocation Right 2nd toe ulceration Cellulitis right foot Postoperative Diagnosis same Operation/Procedure Performed Right foot open reduction internal fixation 2nd toe Right foot debridement of ulceration Right foot simple closure of ulceration 2 cm Surgeon Nighat admissions assistant none Anesthesia: MAC Estimated blood loss: 0 - 10 ml's Transfusion Required none Specimen wound culture right foot Grafts/Implants 0.062 kwire x 2 Complications none MATTY GUO DPM Feb 04, 2017 18:40
--- NOTE | 2017-02-04 20:01 | OPR ---
DATE OF OPERATION: 02/04/2017 SURGEON: Matty Disla DPM REPORT MANAGER: None. PREOPERATIVE DIAGNOSES: 1. Right second toe open dislocation at proximal interphalangeal joint. 2. Ulceration, right second toe. 3. Cellulitis. POSTOPERATIVE DIAGNOSES: 1. Right second toe open dislocation at proximal interphalangeal joint. 2. Ulceration, right second toe. 3. Cellulitis. OPERATION PERFORMED: 1. Open reduction, internal fixation right second toe dislocation. 2. Debridement of ulceration, excisional 2 cm x 3 mm. 3. Simple closure of ulceration right plantar toe of length of 2 cm. PATHOLOGY: Wound cultures. ANESTHESIA: MAC with a local. COMPLICATIONS: None. ESTIMATED BLOOD LOSS: 5 to 10 mL. INDICATION FOR PROCEDURE: A 61-year-old gentleman who was admitted for infected ulceration with open dislocation of the right second toe. Had a fall secondary to a syncopal episode. He has had attempted reduction with persistent dislocation, also has been on antibiotics for presence of cellulitis. The patient presents for debridement of ulceration, cultures and reduction of right second toe dislocation. Discussed planned procedure, risks, benefits, potential complications, and informed consent obtained. The foot was marked. The patient has been on vancomycin preoperatively and was given 1 gram of Ancef preoperatively. DESCRIPTION OF PROCEDURE: The patient brought into the operating room and placed in the supine position. Formal timeout was performed. The foot was properly marked, confirmed by me and surgical team, and prepped and draped in the usual sterile fashion. At this time, the patient had dried sanguineous exudate located on the plantar aspect of the second toe. This was debrided excisionally and debrided hematoma, and nonviable skin and subcutaneous tissue removed, and ulceration measured 2 cm x 3 to 4 mm. Wound was copiously irrigated with saline solution. The dislocated toe had interposition of the flexor tendon within the joint as well as ruptured capsule. The toe was relocated; however, could not maintain position with movement of the toe. At this time a K-wire fixation, 0.062 K-wire was placed distal aspect of the toe through the proximal phalanx and the toe had improved appearance. At this time the ulceration was closed using 3-0 nylon with simple interrupted suture technique. The pins were bent and applied pin caps. The foot was then dressed with a 4 x 4, Webril, Kerlix. The patient tolerated the procedure well, transferred to the PACU with vital signs stable. POSTOPERATIVE PLAN: Patient is partial weightbearing to heel with use of a postoperative shoe. Anticipate maintaining the pins for 4 to 6 weeks and pending patient healing, also will continue antibiotics, follow up on the culture results and further recommendations when they become available. Dictated By: MATTY HADDAD/SMITH Conf#: [id number] DID#: [id number] CC: OSIEL JO MD;*EndCC* MTDD
[2017-02-04] MEDS: ATORVASTATIN 80 MG TAB PO SCH (20:18)
[2017-02-04] MEDS: ZOLPIDEM 5 MG TAB PO PRN (21:27)
--- NOTE | 2017-02-04 21:48 | RADRPT ---
Vent Rate: 79 bpm RR Interval: 0 msec CO Interval: 204 msec QRS Duration: 152 msec QT Interval: 400 msec QTC Interval: 458 msec P-R-T [place]: 69 - 0 - 43 degrees Normal sinus rhythm Right bundle branch block Septal infarct , age undetermined Abnormal ECG Electronically Signed By: Delfin Olivas [id number]
[2017-02-04] MEDS: traMADol 50 MG TAB PO PRN (23:33)
--- NOTE | 2017-02-05 00:24 | RADRPT ---
PROCEDURE: XR Foot. CLINICAL INDICATION: Trauma. TECHNIQUE: AP, lateral and oblique views of the right foot was obtained. COMPARISON: 02/04/2017 FINDINGS: Pins are noted through the second digit there has been interval reduction of the second be due dislo cation. No other definite acute fracture or dislocation is identified. No osseous erosions are ident ified. IMPRESSION: Interval reduction and internal fixation of the second digit dislocation. RPTAT: HIKT .Edd Lawson MD, MD Date Time Electronically viewed and signed by .Edd Lawson MD, MD on 02/05/2017 00:23 .T/
[2017-02-05] MEDS: ACCUCHECK 2 AM XX SCH (02:00)
[2017-02-05 02:08] VITALS: BP 144/84; RESP 18
[2017-02-05 02:10] VITALS: BP 117/68; PULSE 63; RESP 19
[2017-02-05] MEDS: morphine 4 MG/ML VIAL IV PRN ×2 (02:17→08:14)
[2017-02-05 06:20] LABS: BASOPHIL # 0.1 10^3/ul (0.0-0.1); BASOPHILS % 0.7 % (0.0-2.0); EOSINOPHILS # 0.3 10^3/ul (0.0-0.5); EOSINOPHILS % 3.3 % (0.0-7.0); HEMATOCRIT 45.9 % (42.0-52.0); HEMOGLOBIN 15.4 g/dl (14.0-18.0); LYMPHOCYTES % 23.9 % (15.0-51.0); MEAN CORPUSCULAR HEMOGLOBIN 31.2 pg (29.0-33.0); MEAN CORPUSCULAR HGB CONC 33.6 g/dl (32.0-37.0); MEAN CORPUSCULAR VOLUME 92.9 fl (82.0-101.0); MEAN PLATELET VOLUME 10.7 fl (7.4-10.4); MONOCYTES % 11.4 % (0.0-11.0); NEUTROPHILS % 60.1 % (39.0-77.0); PLATELET COUNT 161 10^3/UL (140-415); RED BLOOD COUNT 4.94 10^6/ul (4.70-6.10); RED CELL DISTRIBUTION WIDTH 13.2 % (11.5-14.5); WHITE BLOOD COUNT 8.4 10^3/ul (4.8-10.8)
[2017-02-05 06:41] LABS: CALCIUM 9.3 mg/dl (8.4-10.2); CREATININE 1.27 mg/dl (0.61-1.24); MAGNESIUM 1.8 mg/dl (1.7-2.5); PHOSPHORUS 4.1 mg/dl (2.5-4.9); POTASSIUM 4.4 mmol/L (3.5-5.1)
[2017-02-05 07:32] VITALS: BP 130/85; RESP 18
--- NOTE | 2017-02-05 07:36 | PN ---
Date/Time of Note Date/Time of Note DATE: 02/05/17 TIME: 07:35 Assessment/Plan VTE Prophylaxis VTE Prophylaxis Intervention: other (To be resumed once cleared by Podiatry.) Lines/Catheters IV [facility] Saline Lock Assessment/Plan Chief Complaint/Hosp Course 1. Right foot cellulitis with right foot ulceration of the plantar aspect with dorsolateral dislocation of the second proximal interphalangeal joint. S/P open reduction, internal fixation right second toe dislocation, debridement of ulceration, excisional 2 cm x 3 mm, and simple closure of ulceration right plantar toe of length of 2 cm. Continue antimicrobials as per ID. 2. Status post fall at home. The fall could be mechanical since the patient verbalized that he slipped over something on the floor. However, the possibility of syncope is not ruled out. The patient's brain CT scan was negative for any acute findings. Bilateral carotid Doppler study showing mild soft and calcific plaque without evidence for hemodynamically significant stenosis with antegrade flow seen within the vertebral arteries bilaterally. Check orthostatic vital signs. 3. CAD. Status post PCI with drug-eluting stent to the LAD and RCA in June 2016. Continue dual antiplatelet therapy. 4. Type 2 diabetes mellitus. Hemoglobin A1c 6.4. Continue sliding scale insulin with pre-meal insulin and Lantus insulin. 5. Dyslipidemia. Continue statins. 6. COPD. Continue inhaled bronchodilators. No evidence of any exacerbation. 7. Acute on chronic kidney disease. Avoid nephrotoxic medications. The patient being followed by nephrology. 8. Nicotine use. Cessation advised. 9. Fluids, electrolytes, and nutrition. Carbohydrate controlled diet. 10. DVT prophylaxis. To be resumed once cleared by Podiatry. 11. Plan. Continue antimicrobials. Continue pain control. Await further inputs form consultants. Case discussed with Dr. Aponet. Problems: Subjective 24 Hr Interval Summary Free Text/Dictation Complains of severe RLE pain. Exam/Review of Systems Vital Signs Vitals Vital Signs Date Time Temp Pulse Resp B/P Pulse Ox O2 Delivery O2 Flow Rate FiO2 02/05/17 02:10 98.1 63 19 117/68 98 Room Air 02/04/17 19:23 2.0 02/02/17 17:04 21 Intake and Output 02/04/17 02/04/17 02/05/17 15:00 23:00 07:00 Intake Total 350 ml 900 ml Output Total 5 ml 425 ml Balance 345 ml 475 ml Exam General: Obese, 61 year-old male lying in bed in no apparent distress. HEENT: Normocephalic, atraumatic. Eyes: Anicteric sclerae, conjunctivae clear. ENT: Nasal septum midline, oral mucosa moist. Neck supple, no JVD noticed. Respiratory: Bilaterally clear breath sounds. No use of accessory muscles of respiration. No adventitious breath sounds. Cardiovascular: S1, S2 heard. Regular rate and rhythm. Abdomen: Soft, nontender, and nondistended. Bowel sounds positive in all 4 quadrants. Genitourinary: Deferred. Extremities: No cyanosis. Peripheral pulses palpable. Right foot dressing. Neurologic: Cranial nerves II through XII grossly intact. The patient is awake, alert, and oriented. Results Result Diagram: 02/05/17 0540 02/05/17 0540 Results 24 hrs Laboratory Tests Test 02/04/17 08:02 02/04/17 08:12 02/04/17 12:31 02/04/17 20:06 Troponin I 0.012 Bedside Glucose 144 156 96 Test 02/04/17 22:14 02/05/17 05:40 Vancomycin Level Trough 11.1 White Blood Count 8.4 Red Blood Count 4.94 Hemoglobin 15.4 Hematocrit 45.9 Mean Corpuscular Volume 92.9 Mean Corpuscular Hemoglobin 31.2 Mean Corpuscular Hemoglobin Concent 33.6 Red Cell Distribution Width 13.2 Platelet Count 161 Mean Platelet Volume 10.7 H Neutrophils % 60.1 Lymphocytes % 23.9 Monocytes % 11.4 H Eosinophils % 3.3 Basophils % 0.7 Nucleated Red Blood Cells % 0.0 Neutrophils # 5.0 Lymphocytes # 2.0 Monocytes # 1.0 H Eosinophils # 0.3 Basophils # 0.1 Nucleated Red Blood Cells # 0.0 Sodium Level 144 Potassium Level 4.4 Chloride Level 106 Carbon Dioxide Level 27 Anion Gap 15 Blood Urea Nitrogen 29 H Creatinine 1.27 H Glucose Level 119 Calcium Level 9.3 Phosphorus Level 4.1 Magnesium Level 1.8 Medications Medications Current Medications Acetaminophen/ Hydrocodone Bitart ([place] (10/325)) 1 tab Q4H PRN PO moderate pain Last administered on 02/04/17t 11:09; Admin Dose 1 TAB; Start 02/02/17 at 21:00 Diagnostic Test (Pha) (Accu-Chek) 1 ea 02 XX Last administered on 02/03/17 01 :37; Admin Dose 1 EA; Start 02/02/17 at 21:30 Miscellaneous Information 1 ea NOTE XX ; Start 02/02/17 at 21:30 Glucose (Glutose) 15 gm Q15M PRN PO DECREASED GLUCOSE; Start 02/02/17 at 21:30 Glucose (Glutose) 22.5 gm Q15M PRN PO DECREASED GLUCOSE; Start 02/02/17 at 21: 30 Dextrose (D50w Syringe) 25 ml Q15M PRN IV DECREASED GLUCOSE; Start 02/02/17 at 21:30 Dextrose (D50w Syringe) 50 ml Q15M PRN IV DECREASED GLUCOSE; Start 02/02/17 at 21:30 Glucagon (Glucagen) 1 mg Q15M PRN IM DECREASED GLUCOSE; Start 02/02/17 at 21: 30 Glucose (Glutose) 15 gm Q15M PRN BUCCAL DECREASED GLUCOSE; Start 02/02/17 at 21:30 Aspirin (Halfprin) 81 mg DAILY PO Last administered on 02/04/17 08:24; Admin Dose 81 MG; Start 02/03/17 at 09:00 Atorvastatin Calcium (Lipitor) 80 mg DAILY@21 PO Last administered on 20:18; Admin Dose 80 MG; Start 02/03/17 at 21:00 Docusate Sodium (Colace) 100 mg DAILY PRN PO CONSTIPATION; Start 02/03/17 at 00:00 Losartan Potassium (Cozaar) 25 mg DAILY PO Last administered on 02/04/17 08: 24; Admin Dose 25 MG; Start 02/03/17 at 09:00 Metoprolol Succinate (Toprol Xl) 25 mg BID PO Last administered on 02/04/17 20:18; Admin Dose 25 MG; Start 02/03/17 at 09:00 Ticagrelor (Brilinta) 90 mg BID PO Last administered on 02/04/17 22:09; Admin Dose 90 MG; Start 02/03/17 at 09:00 Tramadol HCl (Ultram) 50 mg TID PRN PO PAIN Last administered on 02/04/17 23: 33; Admin Dose 50 MG; Start 02/03/17 at 00:00 Zolpidem Tartrate (Ambien) 10 mg QHS PRN PO INSOMNIA Last administered on 02/04 21:27; Admin Dose 10 MG; Start 02/03/17 at 00:00 Hydralazine HCl (Apresoline) 10 mg Q4H PRN IV SBP > 160; Start 02/03/17 at 00: 00 Morphine Sulfate 4 mg 4 mg Q4H PRN IV PAIN Last administered on 02/05/17 02: 17; Admin Dose 4 MG; Start 02/03/17 at 09:00 Cefepime HCl (Maxipime 1gm/50 ml (Pmx)) 50 ml @ 100 mls/hr Q12 IVPB Last administered on 02/04/17 20:30; Admin Dose 100 MLS/HR; Start 02/03/17 at 09: 00 Insulin Glargine 14 unit 14 unit DAILY@08 SC Last administered on 02/04/17 08 :35; Admin Dose 14 UNIT; Start 02/04/17 at 08:00 Vancomycin HCl/ Dextrose/Water (Vancocin/D5W) 150 ml @ 75 mls/hr Q12H IVPB Last administered on 02/04/17 23:26; Admin Dose 75 MLS/HR; Start 02/03/17 at 23:00 Salmeterol Xinafoate/ Fluticasone (Advair 500/50 Diskus) 1 inh BID INH Last administered on 02/04/17 20:08; Admin Dose 1 INH; Start 02/03/17 at 21:00 Nitroglycerin (Nitroglycerin (Sl Tab) 0.4 Mg) 1 tab Q5M PRN SL ANGINA; Start 02/03/17 at 21:00 Gentamicin Sulfate (Gentamicin 0.1% Oint) 1 applic DAILY TOP Last administered on 02/04/17 11:10; Admin Dose 1 APPLIC; Start 02/04/17 at 09:00 DUANE CHO NP Feb 05, 2017 07:36
[2017-02-05] MEDS: Insulin NOVOLOG SS MILD Algorithm (SS with meals and bedtime) SC SCH ×4 (08:00→20:36)
[2017-02-05] MEDS: CEFEPIME 1GM/50 ML (PMX) 50 ML IVPB SCH ×2 (08:14→20:37)
[2017-02-05] MEDS: METOPROLOL (XL) 25 MG TAB PO SCH ×2 (08:15→20:37)
[2017-02-05] MEDS: HYDROCODONE/APAP (10/325) TAB PO PRN (08:15)
[2017-02-05] MEDS: ASPIRIN (EC) 81 MG TAB PO SCH (08:15)
[2017-02-05] MEDS: LOSARTAN 25 MG TAB PO SCH (08:15)
[2017-02-05] MEDS: SALMETEROL/FLUTICASONE 500/50 INHA INH SCH ×2 (08:16→20:37)
[2017-02-05] MEDS: TICAGRELOR 90 MG TABLET PO SCH ×2 (08:27→20:40)
--- NOTE | 2017-02-05 08:30 | RADRPT ---
PROCEDURE: Intraoperative fluoroscopy CLINICAL INDICATION: pain TECHNIQUE: Fluoroscopic spot images from an intraoperative procedure submitted. Fluoro time: 2 seconds Number of images/fluoroscopic sequences: 1 COMPARISON: none FINDINGS: 2 K-wires through the right foot second ray phalanges without hardware fracture or loosening. RPTAT: AA IMPRESSION: Right foot second toe fracture repair. Please refer to the operative note for more information. Alex Paul Physician Date Time Electronically viewed and signed by Alex Paul Physician on 02/05/2017 08:30 MD/
--- NOTE | 2017-02-05 08:30 | CONS ---
Date/Time of Note Date/Time of Note DATE: 02/05/17 TIME: 08:29 Consult Date/Type/Reason Admit Date/Time Feb 02, 2017 at 18:38 Initial Consult Date 02/03/17 Type of Consultation: CARD Subjective CARDIOLOGY FOLLOW UP NOTE: S: pt with no chest pain or pressure no syncope or presyncope d/w staff pt s/p ORIF toe 02/04/17 he c/o severe toe pain O: General: obese. no acute distress HEENT: NC/AT. pupils are equal. round. NECK: NO JVD. no stridor. CV: RRR. systolic murmur; no gallop or rubs. PULM: + wheezing or rhonchi. GI: SOFT, NT, ND, no rebound or guarding Extremity: trace B/L LE edema. no clubbing. right foot toe s/p surgery and pinned. neuro: awake and alert, OX3. Psych: calm and pleasant rectal: deferred ECG reviewed NSR RBBB, septal infarct right foot xray 1. Dorsolateral dislocation at the second proximal interphalangeal joint. 2. No definite acute osseous abnormality. Objective Vital Signs Date Time Temp Pulse Resp B/P Pulse Ox O2 Delivery O2 Flow Rate FiO2 02/05/17 07:32 97.9 81 18 130/85 91 02/05/17 02:10 Room Air 02/04/17 19:23 2.0 02/02/17 17:04 21 Intake and Output 02/04/17 02/04/17 02/05/17 15:00 23:00 07:00 Intake Total 350 ml 900 ml Output Total 5 ml 425 ml Balance 345 ml 475 ml Results/Medications Result Diagram: 02/05/17 0540 02/05/17 0540 Results 24 hrs Laboratory Tests Test 02/04/17 12:31 02/04/17 20:06 02/04/17 22:14 02/05/17 05:40 Bedside Glucose 156 96 Vancomycin Level Trough 11.1 White Blood Count 8.4 Red Blood Count 4.94 Hemoglobin 15.4 Hematocrit 45.9 Mean Corpuscular Volume 92.9 Mean Corpuscular Hemoglobin 31.2 Mean Corpuscular Hemoglobin Concent 33.6 Red Cell Distribution Width 13.2 Platelet Count 161 Mean Platelet Volume 10.7 H Neutrophils % 60.1 Lymphocytes % 23.9 Monocytes % 11.4 H Eosinophils % 3.3 Basophils % 0.7 Nucleated Red Blood Cells % 0.0 Neutrophils # 5.0 Lymphocytes # 2.0 Monocytes # 1.0 H Eosinophils # 0.3 Basophils # 0.1 Nucleated Red Blood Cells # 0.0 Sodium Level 144 Potassium Level 4.4 Chloride Level 106 Carbon Dioxide Level 27 Anion Gap 15 Blood Urea Nitrogen 29 H Creatinine 1.27 H Glucose Level 119 Calcium Level 9.3 Phosphorus Level 4.1 Magnesium Level 1.8 Medications Current Medications Acetaminophen/ Hydrocodone Bitart ([place] (10325)) 1 tab Q4H PRN PO moderate pain Last administered on 02/05/17 08:15; Admin Dose 1 TAB; Start 02/02/17 at 21:00 Diagnostic Test (Pha) (Accu-Chek) 1 ea 02 XX Last administered on 02/03/17 01 :37; Admin Dose 1 EA; Start 02/02/17 at 21:30 Miscellaneous Information 1 ea NOTE XX ; Start 02/02/17 at 21:30 Glucose (Glutose) 15 gm Q15M PRN PO DECREASED GLUCOSE; Start 02/02/17 at 21:30 Glucose (Glutose) 22.5 gm Q15M PRN PO DECREASED GLUCOSE; Start 02/02/17 at 21: 30 Dextrose (D50w Syringe) 25 ml Q15M PRN IV DECREASED GLUCOSE; Start 02/02/17 at 21:30 Dextrose (D50w Syringe) 50 ml Q15M PRN IV DECREASED GLUCOSE; Start 02/02/17 at 21:30 Glucagon (Glucagen) 1 mg Q15M PRN IM DECREASED GLUCOSE; Start 02/02/17 at 21: 30 Glucose (Glutose) 15 gm Q15M PRN BUCCAL DECREASED GLUCOSE; Start 02/02/17 at 21:30 Aspirin (Halfprin) 81 mg DAILY PO Last administered on 02/05/17 08:15; Admin Dose 81 MG; Start 02/03/17 at 09:00 Atorvastatin Calcium (Lipitor) 80 mg DAILY@21 PO Last administered on 20:18; Admin Dose 80 MG; Start 02/03/17 at 21:00 Docusate Sodium (Colace) 100 mg DAILY PRN PO CONSTIPATION; Start 02/03/17 at 00:00 Losartan Potassium (Cozaar) 25 mg DAILY PO Last administered on 02/05/17 08: 15; Admin Dose 25 MG; Start 02/03/17 at 09:00 Metoprolol Succinate (Toprol Xl) 25 mg BID PO Last administered on 02/05/17 08:15; Admin Dose 25 MG; Start 02/03/17 at 09:00 Ticagrelor (Brilinta) 90 mg BID PO Last administered on 02/05/17 08:27; Admin Dose 90 MG; Start 02/03/17 at 09:00 Tramadol HCl (Ultram) 50 mg TID PRN PO PAIN Last administered on 02/04/17 23: 33; Admin Dose 50 MG; Start 02/03/17 at 00:00 Zolpidem Tartrate (Ambien) 10 mg QHS PRN PO INSOMNIA Last administered on 02/04 21:27; Admin Dose 10 MG; Start 02/03/17 at 00:00 Hydralazine HCl (Apresoline) 10 mg Q4H PRN IV SBP > 160; Start 02/03/17 at 00: 00 Morphine Sulfate 4 mg 4 mg Q4H PRN IV PAIN Last administered on 02/05/17 08: 14; Admin Dose 4 MG; Start 02/03/17 at 09:00 Cefepime HCl (Maxipime 1gm/50 ml (Pmx)) 50 ml @ 100 mls/hr Q12 IVPB Last administered on 02/05/17 08:14; Admin Dose 100 MLS/HR; Start 02/03/17 at 09: 00 Insulin Glargine 14 unit 14 unit DAILY@08 SC Last administered on 02/04/17 08 :35; Admin Dose 14 UNIT; Start 02/04/17 at 08:00 Vancomycin HCl/ Dextrose/Water (Vancocin/D5W) 150 ml @ 75 mls/hr Q12H IVPB Last administered on 02/04/17 23:26; Admin Dose 75 MLS/HR; Start 02/03/17 at 23:00 Salmeterol Xinafoate/ Fluticasone (Advair 500/50 Diskus) 1 inh BID INH Last administered on 02/05/17 08:16; Admin Dose 1 INH; Start 02/03/17 at 21:00 Nitroglycerin (Nitroglycerin (Sl Tab) 0.4 Mg) 1 tab Q5M PRN SL ANGINA; Start 02/03/17 at 21:00 Gentamicin Sulfate (Gentamicin 0.1% Oint) 1 applic DAILY TOP Last administered on 02/04/17t 11:10; Admin Dose 1 APPLIC; Start 02/04/17 at 09:00 Assessment/Plan Chief Complaint/Hosp Course 1. CV preop evaluation 2. R toe dislocation +/- cellulitis: s/p surgery 3. hx severe multivessel CAD 4. S/P Anterior stemi 06/24/16 5. s/p PCI LAD, RCA using MEDINA 07/08 6. Dyslipidemia 7/ DM 8. HTN 9./ COPD 10. SMOKING 11. CKD Recommendations: cont current cardiac care Antibiotic as per internal medicine/ ID rec pain management as per IM/ podiatry. post op care Thank you for his referral will continue to follow along with you. VANESSA DÍAZ MD [facility] Problems: VANESSA DÍAZ MD Feb 05, 2017 08:30
[2017-02-05] MEDS: INSULIN GLARGINE [LANtus] 3 ML PEN SC SCH (08:51)
[2017-02-05] MEDS: INSULIN ASPART [NOVOLOG] 3 ML PEN SC SCH ×3 (08:51→17:34)
[2017-02-05] MEDS: GENTAMICIN 0.1% 15 GM OINT TOP SCH (09:00)
--- NOTE | 2017-02-05 09:38 | PN ---
DATE: 02/05/2017 SUBJECTIVE: The patient is stable. No events overnight. No fevers, chills, nausea, vomiting. OBJECTIVE: VITAL SIGNS: Blood pressure is 130/85, temperature 97.9, pulse 81, respirations 18. HEENT: Head is normocephalic. NECK: Supple. HEART: Regular rate. LUNGS: Show diminished breath sounds at base. ABDOMEN: Soft, nontender to palpation. No rebound or guarding. EXTREMITIES: Negative for clubbing, cyanosis, or edema. DERMATOLOGIC: No rashes. MUSCULOSKELETAL: No joint effusions. NEUROLOGIC: No change in exam. MEDICATIONS: The patient's medications have been reviewed. LABORATORY DATA: Showed sodium 144, potassium 4.4, BUN 29, creatinine 1.276. BMP and CBC within no rmal limits. ASSESSMENT AND PLAN: 1. Nonoliguric acute kidney injury on top of chronic kidney disease with previous baseline creatini ne of 1.2 mg/dL. Etiology of acute kidney injury is secondary to hemodynamics. Renal function has been improving, returning close to baseline. At this point, will continue current treatment plan, s upportive care, renally dose all meds. 2. Mineral bone disorder. Monitor calcium and phosphorus levels. 3. Hypertension. Continue current blood pressure regimen. Continue Cozaar 4. Cellulitis, clinically improving. Continue current antibiotic regimen. Follow up with podiatry . 5. History of coronary artery disease. Continue current treatment plan. 6. History of chronic obstructive pulmonary disease with a right partial lung resection. Patient i s stable. Continue supplemental oxygen. 7. Diabetes. Continue current insulin regimen. Dictated By: FROYLAN VALADEZ/SMITH Conf#: [id number] DID#: [id number]
[2017-02-05] MEDS ORDERED: HYDROmorphONE 4 MG/ML SYG IV PRN (12:00)
[2017-02-05] MEDS: VANCOMYCIN 750 MG in DEXTROSE 5% 150 ML IVPB SCH ×2 (12:19→23:02)
--- NOTE | 2017-02-05 12:43 | PN ---
DATE: 02/05/2017 SUBJECTIVE: No acute changes. The patient is alert, lying comfortably in bed. Complaining of pain , no fevers. Vital signs stable. LABORATORIES: WBC 8.4, no shift, no bands. BUN 29, creatinine 1.27. ANTIMICROBIALS: 1. Vancomycin. 2. Cefepime. PHYSICAL EXAMINATION: GENERAL: This is a well-nourished, well-developed elderly French man who is alert, in no distress. HEENT: Head atraumatic, normocephalic. Sclerae anicteric. Buccal mucosa pink. NECK: Supple. CHEST: Rise symmetrical. Breath sounds clear. HEART: S1, S2. ABDOMEN: Soft. Bowel tones present. EXTREMITIES: With right foot dressing intact. The patient had external hardware coming from his to . ASSESSMENT: 1. Right foot cellulitis. 2. Right second toe dislocation, status post open reduction internal fixation. 3. Diabetes. 4. Coronary artery disease, history of [place]. 5. Chronic obstructive pulmonary disease, status post partial lung resection. PLAN: The patient remains stable. Continue present care, pain management and antibiotics. Follow intraoperative cultures and podiatry recommendations. Dictated By: AROLDO BECKER RESIDENTIAL INTERIOR DESIGNER for HERNAN CHICAS MD NI/NTS Conf#: [id number] DID#: [id number] CC: OSIEL JO MD;*EndCC*
[2017-02-05 14:00] VITALS: BP 124/72; RESP 18
[2017-02-05] MEDS: HYDROmorphONE 2 MG/ML SYG IV PRN ×2 (14:43→20:44)
[2017-02-05 20:26] VITALS: BP 111/67; RESP 18
[2017-02-05] MEDS: ATORVASTATIN 80 MG TAB PO SCH (20:37)
[2017-02-06] MEDS: HYDROmorphONE 2 MG/ML SYG IV PRN ×4 (00:37→20:28)
[2017-02-06 01:55] VITALS: BP 127/75; RESP 16
[2017-02-06] MEDS: ACCUCHECK 2 AM XX SCH (02:00)
[2017-02-06 05:35] LABS: BASOPHIL # 0.1 10^3/ul (0.0-0.1); BASOPHILS % 0.8 % (0.0-2.0); EOSINOPHILS # 0.4 10^3/ul (0.0-0.5); EOSINOPHILS % 4.7 % (0.0-7.0); HEMATOCRIT 46.5 % (42.0-52.0); HEMOGLOBIN 15.4 g/dl (14.0-18.0); LYMPHOCYTES % 27.1 % (15.0-51.0); MEAN CORPUSCULAR HEMOGLOBIN 30.6 pg (29.0-33.0); MEAN CORPUSCULAR HGB CONC 33.1 g/dl (32.0-37.0); MEAN CORPUSCULAR VOLUME 92.4 fl (82.0-101.0); MEAN PLATELET VOLUME 10.3 fl (7.4-10.4); MONOCYTE # 0.9 10^3/ul (0.3-0.9); MONOCYTES % 12.1 % (0.0-11.0); NEUTROPHIL # 4.1 10^3/ul (1.6-7.5); NEUTROPHILS % 54.6 % (39.0-77.0); PLATELET COUNT 173 10^3/UL (140-415); RED BLOOD COUNT 5.03 10^6/ul (4.70-6.10); RED CELL DISTRIBUTION WIDTH 13.2 % (11.5-14.5); WHITE BLOOD COUNT 7.5 10^3/ul (4.8-10.8)
[2017-02-06 06:03] LABS: CALCIUM 9.5 mg/dl (8.4-10.2); CREATININE 1.28 mg/dl (0.61-1.24); MAGNESIUM 1.8 mg/dl (1.7-2.5); PHOSPHORUS 4.1 mg/dl (2.5-4.9); POTASSIUM 4.8 mmol/L (3.5-5.1)
[2017-02-06 07:46] VITALS: BP 132/67; RESP 16
--- NOTE | 2017-02-06 07:49 | CONS ---
Date/Time of Note Date/Time of Note DATE: 02/06/17 TIME: 07:48 Consult Date/Type/Reason Admit Date/Time Feb 05, 2017 at 11:47 Initial Consult Date 02/03/17 Type of Consultation: CARD Subjective CARDIOLOGY FOLLOW UP NOTE: S: pt with no chest pain or pressure no syncope or presyncope d/w staff pt s/p ORIF toe 02/04/17 he c/o less severe toe pain today. O: General: obese. no acute distress HEENT: NC/AT. pupils are equal. round. NECK: NO JVD. no stridor. CV: RRR. systolic murmur; no gallop or rubs. PULM: + wheezing or rhonchi. GI: SOFT, NT, ND, no rebound or guarding Extremity: trace B/L LE edema. no clubbing. right foot toe s/p surgery and pinned. neuro: awake and alert, OX3. Psych: calm and pleasant rectal: deferred ECG reviewed NSR RBBB, septal infarct right foot xray 1. Dorsolateral dislocation at the second proximal interphalangeal joint. 2. No definite acute osseous abnormality. Objective Vital Signs Date Time Temp Pulse Resp B/P Pulse Ox O2 Delivery O2 Flow Rate FiO2 02/06/17 07:46 97.9 68 16 132/67 92 02/05/17 02:10 Room Air 02/04/17 19:23 2.0 02/02/17 17:04 21 Intake and Output 02/05/17 02/05/17 02/06/17 15:00 23:00 07:00 Intake Total 200 ml 1130 ml 750 ml Balance 200 ml 1130 ml 750 ml Results/Medications Result Diagram: 02/06/17 0510 02/06/17 0510 Results 24 hrs Laboratory Tests Test 02/05/17 08:37 02/05/17 12:08 02/05/17 17:23 02/05/17 20:35 Bedside Glucose 114 192 117 155 Test 02/06/17 05:10 02/06/17 05:24 White Blood Count 7.5 Red Blood Count 5.03 Hemoglobin 15.4 Hematocrit 46.5 Mean Corpuscular Volume 92.4 Mean Corpuscular Hemoglobin 30.6 Mean Corpuscular Hemoglobin Concent 33.1 Red Cell Distribution Width 13.2 Platelet Count 173 Mean Platelet Volume 10.3 Neutrophils % 54.6 Lymphocytes % 27.1 Monocytes % 12.1 H Eosinophils % 4.7 Basophils % 0.8 Nucleated Red Blood Cells % 0.0 Neutrophils # 4.1 Lymphocytes # 2.0 Monocytes # 0.9 Eosinophils # 0.4 Basophils # 0.1 Nucleated Red Blood Cells # 0.0 Sodium Level 144 Potassium Level 4.8 Chloride Level 107 Carbon Dioxide Level 27 Anion Gap 15 Blood Urea Nitrogen 33 H Creatinine 1.28 H Glucose Level 139 Calcium Level 9.5 Phosphorus Level 4.1 Magnesium Level 1.8 Bedside Glucose 122 Medications Current Medications Acetaminophen/ Hydrocodone Bitart ([place] ()) 1 tab Q4H PRN PO moderate pain Last administered on 02/05/17 08:15; Admin Dose 1 TAB; Start 02/02/17 at 21:00 Diagnostic Test (Pha) (Accu-Chek) 1 ea 02 XX Last administered on 02/03/17 01 :37; Admin Dose 1 EA; Start 02/02/17 at 21:30 Miscellaneous Information 1 ea NOTE XX ; Start 02/02/17 at 21:30 Glucose (Glutose) 15 gm Q15M PRN PO DECREASED GLUCOSE; Start 02/02/17 at 21:30 Glucose (Glutose) 22.5 gm Q15M PRN PO DECREASED GLUCOSE; Start 02/02/17 at 21: 30 Dextrose (D50w Syringe) 25 ml Q15M PRN IV DECREASED GLUCOSE; Start 02/02/17 at 21:30 Dextrose (D50w Syringe) 50 ml Q15M PRN IV DECREASED GLUCOSE; Start 02/02/17 at 21:30 Glucagon (Glucagen) 1 mg Q15M PRN IM DECREASED GLUCOSE; Start 02/02/17 at 21: 30 Glucose (Glutose) 15 gm Q15M PRN BUCCAL DECREASED GLUCOSE; Start 02/02/17 at 21:30 Aspirin (Halfprin) 81 mg DAILY PO Last administered on 02/05/17 08:15; Admin Dose 81 MG; Start 02/03/17 at 09:00 Atorvastatin Calcium (Lipitor) 80 mg DAILY@21 PO Last administered on 20:37; Admin Dose 80 MG; Start 02/03/17 at 21:00 Docusate Sodium (Colace) 100 mg DAILY PRN PO CONSTIPATION; Start 02/03/17 at 00:00 Losartan Potassium (Cozaar) 25 mg DAILY PO Last administered on 02/05/17 08: 15; Admin Dose 25 MG; Start 02/03/17 at 09:00 Metoprolol Succinate (Toprol Xl) 25 mg BID PO Last administered on 02/05/17 08:15; Admin Dose 25 MG; Start 02/03/17 at 09:00 Ticagrelor (Brilinta) 90 mg BID PO Last administered on 02/05/17 20:40; Admin Dose 90 MG; Start 02/03/17 at 09:00 Tramadol HCl (Ultram) 50 mg TID PRN PO PAIN Last administered on 02/04/17 23: 33; Admin Dose 50 MG; Start 02/03/17 at 00:00 Zolpidem Tartrate (Ambien) 10 mg QHS PRN PO INSOMNIA Last administered on 02/04 21:27; Admin Dose 10 MG; Start 02/03/17 at 00:00 Hydralazine HCl 10 mg 10 mg Q4H PRN IV SBP > 160; Start 02/03/17 at 00:00 Cefepime HCl (Maxipime 1gm/50 ml (Pmx)) 50 ml @ 100 mls/hr Q12 IVPB Last administered on 02/05/17 20:37; Admin Dose 100 MLS/HR; Start 02/03/17 at 09: 00 Insulin Glargine 14 unit 14 unit DAILY@08 SC Last administered on 02/05/17 08 :51; Admin Dose 14 UNIT; Start 02/04/17 at 08:00 Vancomycin HCl/ Dextrose/Water (Vancocin/D5W) 150 ml @ 75 mls/hr Q12H IVPB Last administered on 02/05/17 23:02; Admin Dose 75 MLS/HR; Start 02/03/17 at 23:00 Salmeterol Xinafoate/ Fluticasone (Advair 500/50 Diskus) 1 inh BID INH Last administered on 02/05/17 20:37; Admin Dose 1 INH; Start 02/03/17 at 21:00 Nitroglycerin (Nitroglycerin (Sl Tab) 0.4 Mg) 1 tab Q5M PRN SL ANGINA; Start 02/03/17 at 21:00 Hydromorphone HCl (Dilaudid) 4 mg Q4H PRN IV PAIN Last administered on t 00:37; Admin Dose 4 MG; Start 02/05/17 at 12:00 Assessment/Plan Chief Complaint/Hosp Course 1. CV preop evaluation 2. R toe dislocation +/- cellulitis: s/p surgery 3. hx severe multivessel CAD 4. S/P Anterior stemi 06/24/16 5. s/p PCI LAD, RCA using MEDINA 07/08 6. Dyslipidemia 7/ DM 8. HTN 9./ COPD 10. SMOKING 11. CKD Recommendations: cont current cardiac care: cont asa/ brilinta. Antibiotic as per internal medicine/ ID rec pain management as per IM/ podiatry. post op care Thank you for his referral will continue to follow along with you. VANESSA DÍAZ MD FAC Problems: VANESSA DÍAZ MD Feb 06, 2017 07:49
[2017-02-06] MEDS: Insulin NOVOLOG SS MILD Algorithm (SS with meals and bedtime) SC SCH ×4 (08:00→20:37)
[2017-02-06] MEDS: INSULIN ASPART [NOVOLOG] 3 ML PEN SC SCH ×3 (08:20→17:30)
[2017-02-06] MEDS: INSULIN GLARGINE [LANtus] 3 ML PEN SC SCH (08:20)
--- NOTE | 2017-02-06 08:54 | PN ---
DATE: 02/06/2017 SUBJECTIVE: The patient is stable. No events overnight. No fevers, chills, nausea, vomiting. OBJECTIVE: VITAL SIGNS: Blood pressure is 132/67, respirations 16, pulse 68, temperature 97.9. HEENT: Head is normocephalic. NECK: Supple. HEART: Regular rate. LUNGS: Show diminished breath sounds at the base. ABDOMEN: Soft, nontender to palpation. No rebound or guarding. EXTREMITIES: Negative for clubbing, cyanosis, no edema. DERMATOLOGIC: No rashes. MUSCULOSKELETAL: No joint effusions. NEUROLOGIC: No change in exam. MEDICATIONS: Have been reviewed. LABORATORY DATA: Has been reviewed. Sodium 144, BUN 33, creatinine 1.28. CBC within normal limits . ASSESSMENT AND PLAN: 1. Nonoliguric acute kidney injury on top of chronic kidney disease with previous baseline creatini ne 1.2 mg/dL. Etiology of acute kidney injury is secondary to hemodynamics. Renal function is retu rning to baseline. Continue current treatment plan, supportive care, renally dose all medications. 2. Mineral bone disorder. Monitor calcium and phosphorus levels. 3. Hypertension. Continue current blood pressure regimen. 4. Cellulitis, clinically improving. Continue current antibiotic regimen. Follow up with podiatry . 5. History of coronary artery disease. 6. Chronic obstructive pulmonary disease with right partial lung resection. The patient is stable. Continue supplemental oxygen. 7. Diabetes. Continue current insulin regimen. Dictated By: FROYLAN VALADEZ/SMITH Conf#: [id number] DID#: [id number]
[2017-02-06] MEDS: SALMETEROL/FLUTICASONE 500/50 INHA INH SCH ×2 (09:06→20:26)
[2017-02-06] MEDS: TICAGRELOR 90 MG TABLET PO SCH ×2 (09:07→21:13)
[2017-02-06] MEDS: ASPIRIN (EC) 81 MG TAB PO SCH (09:08)
[2017-02-06] MEDS: METOPROLOL (XL) 25 MG TAB PO SCH ×2 (09:08→21:16)
[2017-02-06] MEDS: LOSARTAN 25 MG TAB PO SCH (09:08)
[2017-02-06] MEDS: CEFEPIME 1GM/50 ML (PMX) 50 ML IVPB SCH (09:31)
--- NOTE | 2017-02-06 10:08 | PN ---
Date/Time of Note Date/Time of Note DATE: 02/06/17 TIME: 10:06 Assessment/Plan VTE Prophylaxis VTE Prophylaxis Intervention: heparin Lines/Catheters IV Catheter Type (from Nrs): Peripheral IV Assessment/Plan Chief Complaint/Hosp Course 1. Right foot cellulitis with right foot ulceration of the plantar aspect with dorsolateral dislocation of the second proximal interphalangeal joint. S/P open reduction, internal fixation right second toe dislocation, debridement of ulceration, excisional 2 cm x 3 mm, and simple closure of ulceration right plantar toe of length of 2 cm. Continue antimicrobials as per ID. 2. Status post fall at home. The fall could be mechanical since the patient verbalized that he slipped over something on the floor. However, the possibility of syncope is not ruled out. The patient's brain CT scan was negative for any acute findings. Bilateral carotid Doppler study showing mild soft and calcific plaque without evidence for hemodynamically significant stenosis with antegrade flow seen within the vertebral arteries bilaterally. 3. CAD. Status post PCI with drug-eluting stent to the LAD and RCA in June 2016. Continue dual antiplatelet therapy. 4. Type 2 diabetes mellitus. Hemoglobin A1c 6.4. Continue sliding scale insulin with pre-meal insulin and Lantus insulin. 5. Dyslipidemia. Continue statins. 6. COPD. Continue inhaled bronchodilators. No evidence of any exacerbation. 7. Acute on chronic kidney disease. Avoid nephrotoxic medications. The patient being followed by nephrology. 8. Nicotine use. Cessation advised. 9. Fluids, electrolytes, and nutrition. Carbohydrate controlled diet. 10. DVT prophylaxis. Heparin. 11. Plan. Continue antimicrobials. Continue pain control. Await further inputs form consultants. Case discussed with Dr. Aponte. Problems: Subjective 24 Hr Interval Summary Free Text/Dictation Continues to have right foot pain. Exam/Review of Systems Vital Signs Vitals Vital Signs Date Time Temp Pulse Resp B/P Pulse Ox O2 Delivery O2 Flow Rate FiO2 02/06/17 07:46 97.9 68 16 132/67 92 02/05/17 02:10 Room Air 02/04/17 19:23 2.0 02/02/17 17:04 21 Intake and Output 02/05/17 02/05/17 02/06/17 15:00 23:00 07:00 Intake Total 200 ml 1130 ml 750 ml Balance 200 ml 1130 ml 750 ml Exam General: Obese, 61 year-old male lying in bed in no apparent distress. HEENT: Normocephalic, atraumatic. Eyes: Anicteric sclerae, conjunctivae clear. ENT: Nasal septum midline, oral mucosa moist. Neck supple, no JVD noticed. Respiratory: Bilaterally clear breath sounds. No use of accessory muscles of respiration. No adventitious breath sounds. Cardiovascular: S1, S2 heard. Regular rate and rhythm. Abdomen: Soft, nontender, and nondistended. Bowel sounds positive in all 4 quadrants. Genitourinary: Deferred. Extremities: No cyanosis. Peripheral pulses palpable. Right foot dressing. Neurologic: Cranial nerves II through XII grossly intact. The patient is awake, alert, and oriented. Results Result Diagram: 02/06/17 0510 02/06/17 0510 Results 24 hrs Laboratory Tests Test 02/05/17 12:08 02/05/17 17:23 02/05/17 20:35 02/06/17 05:10 Bedside Glucose 192 117 155 White Blood Count 7.5 Red Blood Count 5.03 Hemoglobin 15.4 Hematocrit 46.5 Mean Corpuscular Volume 92.4 Mean Corpuscular Hemoglobin 30.6 Mean Corpuscular Hemoglobin Concent 33.1 Red Cell Distribution Width 13.2 Platelet Count 173 Mean Platelet Volume 10.3 Neutrophils % 54.6 Lymphocytes % 27.1 Monocytes % 12.1 H Eosinophils % 4.7 Basophils % 0.8 Nucleated Red Blood Cells % 0.0 Neutrophils # 4.1 Lymphocytes # 2.0 Monocytes # 0.9 Eosinophils # 0.4 Basophils # 0.1 Nucleated Red Blood Cells # 0.0 Sodium Level 144 Potassium Level 4.8 Chloride Level 107 Carbon Dioxide Level 27 Anion Gap 15 Blood Urea Nitrogen 33 H Creatinine 1.28 H Glucose Level 139 Calcium Level 9.5 Phosphorus Level 4.1 Magnesium Level 1.8 Test 02/06/17 05:24 02/06/17 07:55 Bedside Glucose 122 135 Medications Medications Current Medications Acetaminophen/ Hydrocodone Bitart ([place] (10/325)) 1 tab Q4H PRN PO moderate pain Last administered on 02/05/17 08:15; Admin Dose 1 TAB; Start 02/02/17 at 21:00 Diagnostic Test (Pha) (Accu-Chek) 1 ea 02 XX Last administered on 02/03/17 01 :37; Admin Dose 1 EA; Start 02/02/17 at 21:30 Miscellaneous Information 1 ea NOTE XX ; Start 02/02/17 at 21:30 Glucose (Glutose) 15 gm Q15M PRN PO DECREASED GLUCOSE; Start 02/02/17 at 21:30 Glucose (Glutose) 22.5 gm Q15M PRN PO DECREASED GLUCOSE; Start 02/02/17 at 21: 30 Dextrose (D50w Syringe) 25 ml Q15M PRN IV DECREASED GLUCOSE; Start 02/02/17 at 21:30 Dextrose (D50w Syringe) 50 ml Q15M PRN IV DECREASED GLUCOSE; Start 02/02/17 at 21:30 Glucagon (Glucagen) 1 mg Q15M PRN IM DECREASED GLUCOSE; Start 02/02/17 at 21: 30 Glucose (Glutose) 15 gm Q15M PRN BUCCAL DECREASED GLUCOSE; Start 02/02/17 at 21:30 Aspirin (Halfprin) 81 mg DAILY PO Last administered on 02/06/17 09:08; Admin Dose 81 MG; Start 02/03/17 at 09:00 Atorvastatin Calcium (Lipitor) 80 mg DAILY@21 PO Last administered on 20:37; Admin Dose 80 MG; Start 02/03/17 at 21:00 Docusate Sodium (Colace) 100 mg DAILY PRN PO CONSTIPATION; Start 02/03/17 at 00:00 Losartan Potassium (Cozaar) 25 mg DAILY PO Last administered on 02/06/17 09: 08; Admin Dose 25 MG; Start 02/03/17 at 09:00 Metoprolol Succinate (Toprol Xl) 25 mg BID PO Last administered on 02/06/17 09:08; Admin Dose 25 MG; Start 02/03/17 at 09:00 Ticagrelor (Brilinta) 90 mg BID PO Last administered on 02/06/17 09:07; Admin Dose 90 MG; Start 02/03/17 at 09:00 Tramadol HCl (Ultram) 50 mg TID PRN PO PAIN Last administered on 02/04/17 23: 33; Admin Dose 50 MG; Start 02/03/17 at 00:00 Zolpidem Tartrate (Ambien) 10 mg QHS PRN PO INSOMNIA Last administered on 02/04 21:27; Admin Dose 10 MG; Start 02/03/17 at 00:00 Hydralazine HCl 10 mg 10 mg Q4H PRN IV SBP > 160; Start 02/03/17 at 00:00 Cefepime HCl (Maxipime 1gm/50 ml (Pmx)) 50 ml @ 100 mls/hr Q12 IVPB Last administered on 02/06/17 09:31; Admin Dose 100 MLS/HR; Start 02/03/17 at 09: 00 Insulin Glargine 14 unit 14 unit DAILY@08 SC Last administered on 02/06/17 08 :20; Admin Dose 14 UNIT; Start 02/04/17 at 08:00 Vancomycin HCl/ Dextrose/Water (Vancocin/D5W) 150 ml @ 75 mls/hr Q12H IVPB Last administered on 02/05/17 23:02; Admin Dose 75 MLS/HR; Start 02/03/17 at 23:00 Salmeterol Xinafoate/ Fluticasone (Advair 500/50 Diskus) 1 inh BID INH Last administered on 02/06/17 09:06; Admin Dose 1 INH; Start 02/03/17 at 21:00 Nitroglycerin (Nitroglycerin (Sl Tab) 0.4 Mg) 1 tab Q5M PRN SL ANGINA; Start 02/03/17 at 21:00 Hydromorphone HCl (Dilaudid) 4 mg Q4H PRN IV PAIN Last administered on 09:27; Admin Dose 4 MG; Start 02/05/17 at 12:00 DUANE CHO NP Feb 06, 2017 10:08
[2017-02-06] MEDS: VANCOMYCIN 750 MG in DEXTROSE 5% 150 ML IVPB SCH (12:07)
[2017-02-06] MEDS ORDERED: CEFTRIAXONE 1 GM/50 ML (PMX) 50 ML IVPB SCH (14:00)
[2017-02-06 14:17] VITALS: BP 128/77; RESP 16
--- NOTE | 2017-02-06 14:27 | PN ---
DATE: 02/06/2017 SUBJECTIVE: No acute events. The patient is awake, looks comfortable, no fevers. WBC 7.5, no shift, no bands. BUN 33, creatinine 1.28. MICROBIOLOGY: Intraoperative culture growing staph species, preliminary. ANTIMICROBIALS: The patient is on: 1. Vancomycin. 2. Cefepime. PHYSICAL EXAMINATION: GENERAL: Well-developed, elderly Kh[place] man who is alert, in no distress. HEENT: Head atraumatic, normocephalic. Sclerae anicteric. Buccal mucosa pink. NECK: Supple. CHEST: Rise symmetrical. Breath sounds clear. HEART: S1, S2. ABDOMEN: Soft, bowel tones present. EXTREMITIES: With right foot dressing intact. ASSESSMENT: 1. Right second toe open dislocation, status post open reduction and internal fixation with debridement. 2. Right foot cellulitis. 3. Diabetes. 4. History of myocardial infarction. 5. Chronic obstructive pulmonary disease with history of partial lung resection. 6. Acute renal failure, possibly on chronic kidney disease. PLAN: The patient remains stable. We are going to change cefepime to Rocephin , await for final intraoperative cultures. Per discussion with Dr. Disla will need to be on 4 weeks IV abx, consider PICC. Dictated By: AROLDO BECKER NURSE ADVISOR for HERNAN CHICAS MD NI/NTS Conf#: [id number] DID#: [id number] CC: OSIEL JO MD;*EndCC* MTDD
[2017-02-06] MEDS: HYDROCODONE/APAP (10/325) TAB PO PRN (17:00)
[2017-02-06] MEDS: ATORVASTATIN 80 MG TAB PO SCH (20:26)
[2017-02-06 20:36] VITALS: BP 116/64; RESP 16
[2017-02-06] MEDS: HEPARIN 5,000 UNIT/0.5 ML VIAL SC SCH (21:14)
[2017-02-06] MEDS: ZOLPIDEM 5 MG TAB PO PRN (22:16)
[2017-02-06] MEDS: VANCOMYCIN 1 GM in NS 250 ML IVPB SCH (22:22)
[2017-02-07] MEDS: ACCUCHECK 2 AM XX SCH ×2 (02:00→22:54)
[2017-02-07 02:51] VITALS: BP 155/72; RESP 16
[2017-02-07] MEDS: HYDROmorphONE 2 MG/ML SYG IV PRN ×5 (02:57→22:46)
[2017-02-07] MEDS: HEPARIN 5,000 UNIT/0.5 ML VIAL SC SCH ×3 (05:57→22:54)
[2017-02-07 06:12] LABS: BASOPHIL # 0.1 10^3/ul (0.0-0.1); BASOPHILS % 0.8 % (0.0-2.0); EOSINOPHILS # 0.3 10^3/ul (0.0-0.5); HEMOGLOBIN 14.8 g/dl (14.0-18.0); LYMPHOCYTES # 1.5 10^3/ul (0.8-2.9); LYMPHOCYTES % 24.1 % (15.0-51.0); MEAN CORPUSCULAR HEMOGLOBIN 31.2 pg (29.0-33.0); MEAN CORPUSCULAR HGB CONC 33.6 g/dl (32.0-37.0); MEAN CORPUSCULAR VOLUME 92.6 fl (82.0-101.0); MEAN PLATELET VOLUME 10.5 fl (7.4-10.4); MONOCYTE # 0.8 10^3/ul (0.3-0.9); NEUTROPHIL # 3.6 10^3/ul (1.6-7.5); NEUTROPHILS % 56.5 % (39.0-77.0); PLATELET COUNT 172 10^3/UL (140-415); RED BLOOD COUNT 4.75 10^6/ul (4.70-6.10); RED CELL DISTRIBUTION WIDTH 13.1 % (11.5-14.5); WHITE BLOOD COUNT 6.4 10^3/ul (4.8-10.8)
[2017-02-07 06:35] LABS: MAGNESIUM 1.8 mg/dl (1.7-2.5); PHOSPHORUS 3.5 mg/dl (2.5-4.9)
[2017-02-07 06:39] LABS: CREATININE 1.16 mg/dl (0.61-1.24); POTASSIUM 4.7 mmol/L (3.5-5.1)
[2017-02-07 07:16] VITALS: BP 142/87; PULSE 71; RESP 16
[2017-02-07 07:28] VITALS: BP 142/87; RESP 16
[2017-02-07] MEDS: INSULIN GLARGINE [LANtus] 3 ML PEN SC SCH (07:57)
[2017-02-07] MEDS: Insulin NOVOLOG SS MILD Algorithm (SS with meals and bedtime) SC SCH ×4 (08:00→20:30)
[2017-02-07] MEDS: TICAGRELOR 90 MG TABLET PO SCH ×2 (08:01→20:38)
[2017-02-07] MEDS: SALMETEROL/FLUTICASONE 500/50 INHA INH SCH ×2 (08:08→20:26)
[2017-02-07] MEDS: LOSARTAN 25 MG TAB PO SCH (08:09)
[2017-02-07] MEDS: METOPROLOL (XL) 25 MG TAB PO SCH ×2 (08:09→20:29)
[2017-02-07] MEDS: ASPIRIN (EC) 81 MG TAB PO SCH (08:09)
[2017-02-07] MEDS: INSULIN ASPART [NOVOLOG] 3 ML PEN SC SCH ×3 (08:13→17:45)
--- NOTE | 2017-02-07 08:34 | CONS ---
Date/Time of Note Date/Time of Note DATE: 02/07/17 TIME: 08:33 Consult Date/Type/Reason Admit Date/Time Feb 05, 2017 at 11:47 Initial Consult Date 02/03/17 Type of Consultation: CARD Subjective CARDIOLOGY FOLLOW UP NOTE: S: pt with no chest pain or pressure no syncope or presyncope d/w staff pt s/p ORIF toe 02/04/17 he has less toe pain today. O: General: obese. no acute distress HEENT: NC/AT. pupils are equal. round. NECK: NO JVD. no stridor. CV: RRR. systolic murmur; no gallop or rubs. PULM: + wheezing or rhonchi. GI: SOFT, NT, ND, no rebound or guarding Extremity: trace B/L LE edema. no clubbing. right foot toe s/p surgery and in dressing neuro: awake and alert, OX3. Psych: calm and pleasant rectal: deferred ECG reviewed NSR RBBB, septal infarct right foot xray 1. Dorsolateral dislocation at the second proximal interphalangeal joint. 2. No definite acute osseous abnormality. Objective Vital Signs Date Time Temp Pulse Resp B/P Pulse Ox O2 Delivery O2 Flow Rate FiO2 02/07/17 07:28 98.2 71 16 142/87 94 02/07/17 07:16 Room Air 02/04/17 19:23 2.0 Intake and Output 02/06/17 02/06/17 02/07/17 15:00 23:00 07:00 Intake Total 250 ml 1940 ml 750 ml Balance 250 ml 1940 ml 750 ml Results/Medications Result Diagram: 02/07/17 0532 02/07/17 0532 Results 24 hrs Laboratory Tests Test 02/06/17 12:03 02/06/17 17:25 02/06/17 20:32 02/07/17 05:32 Bedside Glucose 128 149 175 White Blood Count 6.4 Red Blood Count 4.75 Hemoglobin 14.8 Hematocrit 44.0 Mean Corpuscular Volume 92.6 Mean Corpuscular Hemoglobin 31.2 Mean Corpuscular Hemoglobin Concent 33.6 Red Cell Distribution Width 13.1 Platelet Count 172 Mean Platelet Volume 10.5 H Neutrophils % 56.5 Lymphocytes % 24.1 Monocytes % 13.0 H Eosinophils % 5.0 Basophils % 0.8 Nucleated Red Blood Cells % 0.0 Neutrophils # 3.6 Lymphocytes # 1.5 Monocytes # 0.8 Eosinophils # 0.3 Basophils # 0.1 Nucleated Red Blood Cells # 0.0 Sodium Level 142 Potassium Level 4.7 Chloride Level 107 Carbon Dioxide Level 25 Anion Gap 15 Blood Urea Nitrogen 29 H Creatinine 1.16 Glucose Level 135 Calcium Level 9.0 Phosphorus Level 3.5 Magnesium Level 1.8 Test 02/07/17 07:44 Bedside Glucose 133 Medications Current Medications Acetaminophen/ Hydrocodone Bitart ([place] (10)) 1 tab Q4H PRN PO moderate pain Last administered on 02/06/17 17:00; Admin Dose 1 TAB; Start 02/02/17 at 21:00 Diagnostic Test (Pha) (Accu-Chek) 1 ea 02 XX Last administered on 02/03/17 01 :37; Admin Dose 1 EA; Start 02/02/17 at 21:30 Miscellaneous Information 1 ea NOTE XX ; Start 02/02/17 at 21:30 Glucose (Glutose) 15 gm Q15M PRN PO DECREASED GLUCOSE; Start 02/02/17 at 21:30 Glucose (Glutose) 22.5 gm Q15M PRN PO DECREASED GLUCOSE; Start 02/02/17 at 21: 30 Dextrose (D50w Syringe) 25 ml Q15M PRN IV DECREASED GLUCOSE; Start 02/02/17 at 21:30 Dextrose (D50w Syringe) 50 ml Q15M PRN IV DECREASED GLUCOSE; Start 02/02/17 at 21:30 Glucagon (Glucagen) 1 mg Q15M PRN IM DECREASED GLUCOSE; Start 02/02/17 at 21: 30 Glucose (Glutose) 15 gm Q15M PRN BUCCAL DECREASED GLUCOSE; Start 02/02/17 at 21:30 Aspirin (Halfprin) 81 mg DAILY PO Last administered on 02/07/17 08:09; Admin Dose 81 MG; Start 02/03/17 at 09:00 Atorvastatin Calcium (Lipitor) 80 mg DAILY@21 PO Last administered on 20:26; Admin Dose 80 MG; Start 02/03/17 at 21:00 Docusate Sodium (Colace) 100 mg DAILY PRN PO CONSTIPATION; Start 02/03/17 at 00:00 Losartan Potassium (Cozaar) 25 mg DAILY PO Last administered on 02/07/17 08: 09; Admin Dose 25 MG; Start 02/03/17 at 09:00 Metoprolol Succinate (Toprol Xl) 25 mg BID PO Last administered on 02/07/17 08:09; Admin Dose 25 MG; Start 02/03/17 at 09:00 Ticagrelor (Brilinta) 90 mg BID PO Last administered on 02/07/17 08:01; Admin Dose 90 MG; Start 02/03/17 at 09:00 Tramadol HCl (Ultram) 50 mg TID PRN PO PAIN Last administered on 02/04/17 23: 33; Admin Dose 50 MG; Start 02/03/17 at 00:00 Zolpidem Tartrate (Ambien) 10 mg QHS PRN PO INSOMNIA Last administered on 02/06 22:16; Admin Dose 10 MG; Start 02/03/17 at 00:00 Hydralazine HCl (Apresoline) 10 mg Q4H PRN IV SBP > 160; Start 02/03/17 at 00: 00 Insulin Glargine (Lantus) 14 unit DAILY@08 SC Last administered on 02/07/17 07:57; Admin Dose 14 UNIT; Start 02/04/17 at 08:00 Salmeterol Xinafoate/ Fluticasone (Advair 500/50 Diskus) 1 inh BID INH Last administered on 02/07/17 08:08; Admin Dose 1 INH; Start 02/03/17 at 21:00 Nitroglycerin (Nitroglycerin (Sl Tab) 0.4 Mg) 1 tab Q5M PRN SL ANGINA; Start 02/03/17 at 21:00 Hydromorphone HCl 2 mg 2 mg Q4H PRN IV PAIN Last administered on 02/07/17 07: 58; Admin Dose 2 MG; Start 02/06/17 at 12:00 Vancomycin HCl 250 ml @ 125 mls/hr Q12H IVPB Last administered on 02/06/17 22:22; Admin Dose 125 MLS/HR; Start 02/06/17 at 23:00 Ceftriaxone Sodium (Rocephin) 50 ml @ 100 mls/hr Q24H IVPB Last administered on 02/06/17 14:11; Admin Dose 100 MLS/HR; Start 02/06/17 at 14:00 Heparin Sodium (Porcine) (Heparin (5000 Units/0.5 ml)) 5,000 unit Q8 SC Last administered on 02/07/17t 05:57; Admin Dose 5,000 UNIT; Start 02/06/17 at 22: 00 Assessment/Plan Chief Complaint/Hosp Course 1. CV preop evaluation 2. R toe dislocation +/- cellulitis: s/p surgery 3. hx severe multivessel CAD 4. S/P Anterior stemi 06/24/16 5. s/p PCI LAD, RCA using MEDINA 07/08 6. Dyslipidemia 7/ DM 8. HTN 9./ COPD 10. SMOKING 11. CKD Recommendations: cont current cardiac care: cont asa/ brilinta. Antibiotic as per internal medicine/ ID rec pain management as per IM/ podiatry. post op care dc planning as per IM. Podiatry rec. Thank you for his referral will continue to follow along with you. VANESSA DÍAZ MD [facility] Problems: VANESSA DÍAZ MD Feb 07, 2017 08:34
--- NOTE | 2017-02-07 09:44 | PN ---
DATE: 02/07/2017 SUBJECTIVE: The patient is stable. No events overnight. No fevers, chills, nausea, vomiting. OBJECTIVE: VITAL SIGNS: Blood pressure is 142/87, temperature 98.2, pulse 71, respirations 16. HEENT: Head is normocephalic. NECK: Supple. HEART: Regular rate. LUNGS: Show diminished breath sounds at the base. ABDOMEN: Soft, nontender to palpation. No rebound or guarding. EXTREMITIES: Negative for clubbing, cyanosis, no edema. DERMATOLOGIC: No rashes. MUSCULOSKELETAL: No joint effusions. NEUROLOGIC: No change in exam. MEDICATIONS: The patient's medications have been reviewed. LABORATORY DATA: Sodium 142, potassium 4.7, chloride 107, BUN 29, creatinine 1.16. His CBC within normal limits. ASSESSMENT AND PLAN: 1. Nonoliguric acute kidney injury on top of chronic kidney disease stage III with a previous basel ine creatinine of 1.2 mg/dL. Etiology of acute kidney injury is secondary to hemodynamics. Renal f unction has returned to baseline. Continue current treatment plan, supportive care, renally dose al l medications. 2. Mineral bone disorder. Monitor calcium and phosphorus levels. 3. Hypertension. Continue current blood pressure regimen. 4. Cellulitis, improving. Continue current antibiotic regimen. 5. History of coronary artery disease. Continue current treatment plan. 6. History of chronic obstructive pulmonary disease, status post partial lung resection. The patie nt is stable. Continue supplemental oxygen. 7. Diabetes. Continue current insulin regimen. Dictated By: FROYLAN VALADEZ/SMITH Conf#: [id number] DID#: [id number]
[2017-02-07] MEDS: VANCOMYCIN 1 GM in NS 250 ML IVPB SCH ×2 (10:13→22:46)
--- NOTE | 2017-02-07 13:25 | PN ---
Date/Time of Note Date/Time of Note DATE: 02/07/17 TIME: 13:22 Assessment/Plan VTE Prophylaxis VTE Prophylaxis Intervention: heparin Lines/Catheters IV Catheter Type (from Nrs): [place] Assessment/Plan Assessment/Plan 1. Right foot cellulitis with right foot ulceration of the plantar aspect with dorsolateral dislocation of the second proximal interphalangeal joint. S/P open reduction, internal fixation right second toe dislocation, debridement of ulceration, excisional 2 cm x 3 mm, and simple closure of ulceration right plantar toe of length of 2 cm. vancomycin and levaquin for 4 weeks. 2. Status post fall at home. The fall could be mechanical since the patient verbalized that he slipped over something on the floor. However, the possibility of syncope is not ruled out. The patient's brain CT scan was negative for any acute findings. Bilateral carotid Doppler study showing mild soft and calcific plaque without evidence for hemodynamically significant stenosis with antegrade flow seen within the vertebral arteries bilaterally. 3. CAD. Status post PCI with drug-eluting stent to the LAD and RCA in June 2016. Continue dual antiplatelet therapy. 4. Type 2 diabetes mellitus. Hemoglobin A1c 6.4. Continue sliding scale insulin with pre-meal insulin and Lantus insulin. 5. Dyslipidemia. Continue statins. 6. COPD. Continue inhaled bronchodilators. No evidence of any exacerbation. 7. Acute on chronic kidney disease. resolved 8. Nicotine use. Cessation advised. 9. Fluids, electrolytes, and nutrition. Carbohydrate controlled diet. 10. DVT prophylaxis. Heparin. 11. PICC line today, case investigator to arrange home health for wound care and iv antibiotics Subjective 24 Hr Interval Summary Free Text/Dictation afebrile, pain is controlled, walks with a walker Exam/Review of Systems Vital Signs Vitals Vital Signs Date Time Temp Pulse Resp B/P Pulse Ox O2 Delivery O2 Flow Rate FiO2 02/07/17 07:28 98.2 71 16 142/87 94 02/07/17 07:16 Room Air 02/04/17 19:23 2.0 Intake and Output 02/06/17 02/06/17 02/07/17 15:00 23:00 07:00 Intake Total 250 ml 1940 ml 750 ml Balance 250 ml 1940 ml 750 ml Exam Constitutional: alert, oriented, well developed Psych: nl mood/affect, no complaints Head: atraumatic, normocephalic Eyes: EOMI, PERRL, nl conjunctiva, nl lids ENMT: mucosa pink and moist, nl external ears & nose, nl lips & teeth, nl nasal mucosa & septum Neck: non-tender, supple Respiratory: clear to auscultation, normal air movement, No congested cough, No crackles/rales, No diminished breath sounds, No intercostal retraction, No labored breathing, No other, No respirations, No tactile fremitus, No wheezing Cardiovascular: nl pulses, regular rate and rhythm Gastrointestinal: nl liver, spleen, non-tender, soft Musculoskeletal: nl extremities to inspection Extremities: other (right foot wound) Neurological: [employer] CONSULT[employer] II-XII intact, nl mental status, nl speech, nl strength Results Result Diagram: 02/07/1753102/07/17 0532 Results 24 hrs Laboratory Tests Test 02/06/17 17:25 02/06/17 20:32 02/07/17 05:32 02/07/17 07:44 Bedside Glucose 149 175 133 White Blood Count 6.4 Red Blood Count 4.75 Hemoglobin 14.8 Hematocrit 44.0 Mean Corpuscular Volume 92.6 Mean Corpuscular Hemoglobin 31.2 Mean Corpuscular Hemoglobin Concent 33.6 Red Cell Distribution Width 13.1 Platelet Count 172 Mean Platelet Volume 10.5 H Neutrophils % 56.5 Lymphocytes % 24.1 Monocytes % 13.0 H Eosinophils % 5.0 Basophils % 0.8 Nucleated Red Blood Cells % 0.0 Neutrophils # 3.6 Lymphocytes # 1.5 Monocytes # 0.8 Eosinophils # 0.3 Basophils # 0.1 Nucleated Red Blood Cells # 0.0 Sodium Level 142 Potassium Level 4.7 Chloride Level 107 Carbon Dioxide Level 25 Anion Gap 15 Blood Urea Nitrogen 29 H Creatinine 1.16 Glucose Level 135 Calcium Level 9.0 Phosphorus Level 3.5 Magnesium Level 1.8 Test 02/07/17 11:56 Bedside Glucose 163 Medications Medications Current Medications Acetaminophen/ Hydrocodone Bitart ([place] (10)) 1 tab Q4H PRN PO moderate pain Last administered on 02/06/17 17:00; Admin Dose 1 TAB; Start 02/02/17 at 21:00 Diagnostic Test (Pha) (Accu-Chek) 1 ea 02 XX Last administered on 02/03/17 01 :37; Admin Dose 1 EA; Start 02/02/17 at 21:30 Miscellaneous Information 1 ea NOTE XX ; Start 02/02/17 at 21:30 Glucose (Glutose) 15 gm Q15M PRN PO DECREASED GLUCOSE; Start 02/02/17 at 21:30 Glucose (Glutose) 22.5 gm Q15M PRN PO DECREASED GLUCOSE; Start 02/02/17 at 21: 30 Dextrose (D50w Syringe) 25 ml Q15M PRN IV DECREASED GLUCOSE; Start 02/02/17 at 21:30 Dextrose (D50w Syringe) 50 ml Q15M PRN IV DECREASED GLUCOSE; Start 02/02/17 at 21:30 Glucagon (Glucagen) 1 mg Q15M PRN IM DECREASED GLUCOSE; Start 02/02/17 at 21: 30 Glucose (Glutose) 15 gm Q15M PRN BUCCAL DECREASED GLUCOSE; Start 02/02/17 at 21:30 Aspirin (Halfprin) 81 mg DAILY PO Last administered on 02/07/17 08:09; Admin Dose 81 MG; Start 02/03/17 at 09:00 Atorvastatin Calcium (Lipitor) 80 mg DAILY@21 PO Last administered on 20:26; Admin Dose 80 MG; Start 02/03/17 at 21:00 Docusate Sodium (Colace) 100 mg DAILY PRN PO CONSTIPATION; Start 02/03/17 at 00:00 Losartan Potassium (Cozaar) 25 mg DAILY PO Last administered on 02/07/17 08: 09; Admin Dose 25 MG; Start 02/03/17 at 09:00 Metoprolol Succinate (Toprol Xl) 25 mg BID PO Last administered on 02/07/17 08:09; Admin Dose 25 MG; Start 02/03/17 at 09:00 Ticagrelor (Brilinta) 90 mg BID PO Last administered on 02/07/17 08:01; Admin Dose 90 MG; Start 02/03/17 at 09:00 Tramadol HCl (Ultram) 50 mg TID PRN PO PAIN Last administered on 02/04/17 23: 33; Admin Dose 50 MG; Start 02/03/17 at 00:00 Zolpidem Tartrate (Ambien) 10 mg QHS PRN PO INSOMNIA Last administered on 02/06 22:16; Admin Dose 10 MG; Start 02/03/17 at 00:00 Hydralazine HCl (Apresoline) 10 mg Q4H PRN IV SBP > 160; Start 02/03/17 at 00: 00 Insulin Glargine (Lantus) 14 unit DAILY@08 SC Last administered on 02/07/17 07:57; Admin Dose 14 UNIT; Start 02/04/17 at 08:00 Salmeterol Xinafoate/ Fluticasone (Advair 500/50 Diskus) 1 inh BID INH Last administered on 02/07/17 08:08; Admin Dose 1 INH; Start 02/03/17 at 21:00 Nitroglycerin (Nitroglycerin (Sl Tab) 0.4 Mg) 1 tab Q5M PRN SL ANGINA; Start 02/03/17 at 21:00 Hydromorphone HCl 2 mg 2 mg Q4H PRN IV PAIN Last administered on 02/07/17 12: 05; Admin Dose 2 MG; Start 02/06/17 at 12:00 Vancomycin HCl (Vancocin) 250 ml @ 125 mls/hr Q12H IVPB Last administered on 02/07/17 10:13; Admin Dose 125 MLS/HR; Start 02/06/17 at 23:00 Heparin Sodium (Porcine) (Heparin (5000 Units/0.5 ml)) 5,000 unit Q8 SC Last administered on 02/07/17 05:57; Admin Dose 5,000 UNIT; Start 02/06/17 at 22: 00 Levofloxacin (Levaquin) 500 mg DAILY@06 PO ; Start 02/08/17 at 06:00; Status ALPA CROOK MD Feb 07, 2017 13:25
[2017-02-07] MEDS ORDERED: LIDOCAINE 1% (MPF) 5 ML VIAL SC ONE ×2 (13:30→14:00)
[2017-02-07 13:35] VITALS: BP 155/78; RESP 16
[2017-02-07] MEDS: LEVOFLOXACIN 500 MG TAB PO SCH (14:15)
--- NOTE | 2017-02-07 14:20 | CONS ---
Date/Time of Note Date/Time of Note DATE: 02/07/17 TIME: 14:19 Assessment/Plan Assessment/Plan Chief Complaint/Hosp Course SUBJECTIVE: No acute events. The patient is awake, looks comfortable, no fevers. WBC 7.5, no shift, no bands. BUN 33, creatinine 1.28. MICROBIOLOGY: Intraoperative culture growing staph species, preliminary. ANTIMICROBIALS: The patient is on: 1. Vancomycin. 2. Levaquin. PHYSICAL EXAMINATION: GENERAL: Well-developed, elderly Pashto man who is alert, in no distress. HEENT: Head atraumatic, normocephalic. Sclerae anicteric. Buccal mucosa pink. NECK: Supple. CHEST: Rise symmetrical. Breath sounds clear. HEART: S1, S2. ABDOMEN: Soft, bowel tones present. EXTREMITIES: With right foot dressing intact. ASSESSMENT: 1. Right second toe open dislocation, status post open reduction and internal fixation with debridement. 2. Right foot cellulitis. 3. Diabetes. 4. History of myocardial infarction. 5. Chronic obstructive pulmonary disease with history of partial lung resection. 6. Acute renal failure, possibly on chronic kidney disease. PLAN: The patient remains stable. Continue abx for 4 weeks, pending PICC DW staff/pt Problems: Consultation Date/Type/Reason Admit Date/Time Feb 05, 2017 at 11:47 Initial Consult Date 02/03/17 Type of Consultation: ID Exam/Review of Systems Vital Signs Vitals Vital Signs Date Time Temp Pulse Resp B/P Pulse Ox O2 Delivery O2 Flow Rate FiO2 02/07/17 13:35 98.5 72 16 155/78 93 02/07/17 07:16 Room Air 02/04/17 19:23 2.0 Intake and Output 02/06/17 02/06/17 02/07/17 14:59 22:59 06:59 Intake Total 250 ml 1940 ml 750 ml Balance 250 ml 1940 ml 750 ml Results Result Diagram: 02/07/17 0532 02/07/17 0532 Results 24 hrs Laboratory Tests Test 02/06/17 17:25 02/06/17 20:32 02/07/17 05:32 02/07/17 07:44 Bedside Glucose 149 175 133 White Blood Count 6.4 Red Blood Count 4.75 Hemoglobin 14.8 Hematocrit 44.0 Mean Corpuscular Volume 92.6 Mean Corpuscular Hemoglobin 31.2 Mean Corpuscular Hemoglobin Concent 33.6 Red Cell Distribution Width 13.1 Platelet Count 172 Mean Platelet Volume 10.5 H Neutrophils % 56.5 Lymphocytes % 24.1 Monocytes % 13.0 H Eosinophils % 5.0 Basophils % 0.8 Nucleated Red Blood Cells % 0.0 Neutrophils # 3.6 Lymphocytes # 1.5 Monocytes # 0.8 Eosinophils # 0.3 Basophils # 0.1 Nucleated Red Blood Cells # 0.0 Sodium Level 142 Potassium Level 4.7 Chloride Level 107 Carbon Dioxide Level 25 Anion Gap 15 Blood Urea Nitrogen 29 H Creatinine 1.16 Glucose Level 135 Calcium Level 9.0 Phosphorus Level 3.5 Magnesium Level 1.8 Test 02/07/17 11:56 Bedside Glucose 163 Medications Medications Current Medications Acetaminophen/ Hydrocodone Bitart ([place] ()) 1 tab Q4H PRN PO moderate pain Last administered on 02/06/17 17:00; Admin Dose 1 TAB; Start 02/02/17 at 21:00 Diagnostic Test (Pha) (Accu-Chek) 1 ea 02 XX Last administered on 02/03/17 01 :37; Admin Dose 1 EA; Start 02/02/17 at 21:30 Miscellaneous Information 1 ea NOTE XX ; Start 02/02/17 at 21:30 Glucose (Glutose) 15 gm Q15M PRN PO DECREASED GLUCOSE; Start 02/02/17 at 21:30 Glucose (Glutose) 22.5 gm Q15M PRN PO DECREASED GLUCOSE; Start 02/02/17 at 21: 30 Dextrose (D50w Syringe) 25 ml Q15M PRN IV DECREASED GLUCOSE; Start 02/02/17 at 21:30 Dextrose (D50w Syringe) 50 ml Q15M PRN IV DECREASED GLUCOSE; Start 02/02/17 at 21:30 Glucagon (Glucagen) 1 mg Q15M PRN IM DECREASED GLUCOSE; Start 02/02/17 at 21: 30 Glucose (Glutose) 15 gm Q15M PRN BUCCAL DECREASED GLUCOSE; Start 02/02/17 at 21:30 Aspirin (Halfprin) 81 mg DAILY PO Last administered on 02/07/17 08:09; Admin Dose 81 MG; Start 02/03/17 at 09:00 Atorvastatin Calcium (Lipitor) 80 mg DAILY@21 PO Last administered on 20:26; Admin Dose 80 MG; Start 02/03/17 at 21:00 Docusate Sodium (Colace) 100 mg DAILY PRN PO CONSTIPATION; Start 02/03/17 at 00:00 Losartan Potassium (Cozaar) 25 mg DAILY PO Last administered on 02/07/17 08: 09; Admin Dose 25 MG; Start 02/03/17 at 09:00 Metoprolol Succinate (Toprol Xl) 25 mg BID PO Last administered on 02/07/17 08:09; Admin Dose 25 MG; Start 02/03/17 at 09:00 Ticagrelor (Brilinta) 90 mg BID PO Last administered on 02/07/17 08:01; Admin Dose 90 MG; Start 02/03/17 at 09:00 Tramadol HCl (Ultram) 50 mg TID PRN PO PAIN Last administered on 02/04/17 23: 33; Admin Dose 50 MG; Start 02/03/17 at 00:00 Zolpidem Tartrate (Ambien) 10 mg QHS PRN PO INSOMNIA Last administered on 02/06 22:16; Admin Dose 10 MG; Start 02/03/17 at 00:00 Hydralazine HCl (Apresoline) 10 mg Q4H PRN IV SBP > 160; Start 02/03/17 at 00: 00 Insulin Glargine (Lantus) 14 unit DAILY@08 SC Last administered on 02/07/17 07:57; Admin Dose 14 UNIT; Start 02/04/17 at 08:00 Salmeterol Xinafoate/ Fluticasone (Advair 500/50 Diskus) 1 inh BID INH Last administered on 02/07/17 08:08; Admin Dose 1 INH; Start 02/03/17 at 21:00 Nitroglycerin (Nitroglycerin (Sl Tab) 0.4 Mg) 1 tab Q5M PRN SL ANGINA; Start 02/03/17 at 21:00 Hydromorphone HCl 2 mg 2 mg Q4H PRN IV PAIN Last administered on 02/07/17 12: 05; Admin Dose 2 MG; Start 02/06/17 at 12:00 Vancomycin HCl (Vancocin) 250 ml @ 125 mls/hr Q12H IVPB Last administered on 02/07/17 10:13; Admin Dose 125 MLS/HR; Start 02/06/17 at 23:00 Heparin Sodium (Porcine) (Heparin (5000 Units/0.5 ml)) 5,000 unit Q8 SC Last administered on 02/07/17t 05:57; Admin Dose 5,000 UNIT; Start 02/06/17 at 22: 00 Levofloxacin (Levaquin) 500 mg DAILY@06 PO ; Start 02/07/17 at 13:30 AROLDO BECKER NP Feb 07, 2017 14:20
--- NOTE | 2017-02-07 17:22 | RADRPT ---
PROCEDURE: XR Chest. 02/07/2017. 1714 hours. CLINICAL INDICATION: Check PICC line position. TECHNIQUE: Single frontal view. COMPARISON: 02/07/2017. 1707 hours. FINDINGS: There is a left arm PICC line with the tip in the lower superior vena cava. The lungs are clear. The heart is mildly enlarged. There is no pleural effusion. There is no pneumothorax. IMPRESSION: 1. Left arm PICC line tip in satisfactory position. 2. Mild cardiomegaly. 3. Otherwise normal chest radiograph. RPTAT: QQ .Bhupinder Marlow MD, MD Date Time Electronically viewed and signed by .Bhupinder Marlow MD, MD on 02/07/2017 17:21 .R/
--- NOTE | 2017-02-07 17:23 | RADRPT ---
PROCEDURE: XR Chest. CLINICAL INDICATION: Check PICC line position. TECHNIQUE: Single frontal view. COMPARISON: 02/02/2017. FINDINGS: There is a left arm PICC line with the tip in the upper superior vena cava. The lungs are clear. The heart is enlarged. There is no pleural effusion. There is no pneumothorax. IMPRESSION: 1. Left arm PICC line tip in the upper superior vena cava. This should be advanced 7 cm. The PICC l ine nurse was informed. 2. Cardiomegaly. 3. Otherwise unremarkable chest radiograph. RPTAT: QQ .Bhupinder Marlow MD, MD Date Time Electronically viewed and signed by .Bhupinder Marlow MD, MD on 02/07/2017 17:22 .R/
--- NOTE | 2017-02-07 17:34 | RADRPT ---
PROCEDURE: Ultrasound guidance for placement of needle in left upper extremity vein. CLINICAL INDICATION: Venous access. TECHNIQUE: Limited sonography of the left upper extremity was performed. Ultrasound images were recorded and s tored in the patient's medical record. COMPARISON: None. FINDINGS: The ultrasound images demonstrate a patent left upper extremity vein. The PICC line was inserted by the PICC line nurse. IMPRESSION: 1. Ultrasound guidance for a needle placement in a left upper extremity vein. 2. The left upper extremity vein is patent. RPTAT: QQ .Bhupinder Marlow MD, MD Date Time Electronically viewed and signed by .Bhupinder Marlow MD, MD on 02/07/2017 17:34 .R/
--- NOTE | 2017-02-07 18:10 | CONS ---
DATE OF ADMISSION: 02/05/2017 DATE OF CONSULTATION: 02/07/2017 SUBJECTIVE FINDINGS: The patient being followed for right foot cellulitis, status post open toe dis location, status post reduction with pinning, debridement and closure of ulceration. The patient stein s decreased erythema, has intermittent pain to the right foot. Denies any fever, nausea, vomiting. OBJECTIVE FINDINGS: VITAL SIGNS: Temperature 98.5, pulse 72, respiratory rate 16, blood pressure 155/78, pulse oximetry 93. GENERAL: The patient alert, oriented. EXTREMITIES: 2+ DP pulse. The patient has a pin protruding through the second toe. There is immed iate capillary refill. There is decreased erythema. Sutures present, plantar aspect of toe. The s kin is warm. Wound cultures, coag negative staph. X-rays reveal reduction and internal fixation of 2nd digit dislocation. LABORATORY: WBC 6.4, hemoglobin 14.8, hematocrit 44, platelets 172. ASSESSMENT: 1. Right foot cellulitis. 2. Open dislocation of right second toe, status post reduction and pinning. PLAN: The patient seen and evaluated. He will continue antibiotics for cellulitis and open disloca tion. Discussed plan of care with infectious disease, likely to need antibiotics for 4 additional weeks, P ICC line pending. The patient is heel touch weightbearing, avoid any injury with the pins that are protruding, applied gauze to protect this, dispensed a postop shoe and recommend followup in a week to 2 weeks after discharge. Dictated By: MATTY HADDAD/SMITH Conf#: [id number] DID#: [id number] CC: OSIEL JO MD;*EndCC*
[2017-02-07] MEDS ORDERED: SOD CHLORIDE 0.9% 100 ML ONE (18:55)
[2017-02-07 20:00] VITALS: BP 143/71; RESP 16
[2017-02-07] MEDS: ATORVASTATIN 80 MG TAB PO SCH (20:27)
[2017-02-07] MEDS: ZOLPIDEM 5 MG TAB PO PRN (22:46)
[2017-02-08 02:00] VITALS: BP 138/84; RESP 16
[2017-02-08] MEDS: LEVOFLOXACIN 500 MG TAB PO SCH (05:22)
[2017-02-08] MEDS: HYDROmorphONE 2 MG/ML SYG IV PRN ×3 (05:22→19:40)
[2017-02-08] MEDS: HEPARIN 5,000 UNIT/0.5 ML VIAL SC SCH ×3 (05:25→22:00)
[2017-02-08 07:22] VITALS: BP 154/87; RESP 16
[2017-02-08] MEDS: Insulin NOVOLOG SS MILD Algorithm (SS with meals and bedtime) SC SCH ×4 (07:49→22:00)
[2017-02-08] MEDS: INSULIN GLARGINE [LANtus] 3 ML PEN SC SCH (07:51)
[2017-02-08] MEDS: INSULIN ASPART [NOVOLOG] 3 ML PEN SC SCH ×3 (07:51→17:24)
[2017-02-08] MEDS: SALMETEROL/FLUTICASONE 500/50 INHA INH SCH ×2 (07:55→21:56)
[2017-02-08] MEDS: METOPROLOL (XL) 25 MG TAB PO SCH ×2 (07:55→21:56)
[2017-02-08] MEDS: LOSARTAN 25 MG TAB PO SCH (07:56)
[2017-02-08] MEDS: ASPIRIN (EC) 81 MG TAB PO SCH (07:56)
[2017-02-08] MEDS: TICAGRELOR 90 MG TABLET PO SCH ×2 (08:00→21:59)
--- NOTE | 2017-02-08 09:22 | PN ---
Date/Time of Note Date/Time of Note DATE: 02/08/17 TIME: 09:21 Assessment/Plan VTE Prophylaxis VTE Prophylaxis Intervention: other Lines/Catheters IV [facility]from [facility]): PICC Line Central line still needed: Yes Assessment/Plan Chief Complaint/Hosp Course renal follow up SUBJECTIVE: The patient is stable. No events overnight. No fevers, chills, nausea, vomiting. OBJECTIVE: HEENT: Head is normocephalic. NECK: Supple. HEART: Regular rate. LUNGS: Show diminished breath sounds at the base. ABDOMEN: Soft, nontender to palpation. No rebound or guarding. EXTREMITIES: Negative for clubbing, cyanosis, no edema. DERMATOLOGIC: No rashes. MUSCULOSKELETAL: No joint effusions. NEUROLOGIC: No change in exam. MEDICATIONS: The patient's medications have been reviewed. ASSESSMENT AND PLAN: 1. Nonoliguric acute kidney injury on top of chronic kidney disease stage III with a previous baseline creatinine of 1.2 mg/dL. Etiology of acute kidney injury is secondary to hemodynamics. Renal function has returned to baseline. Continue current treatment plan, supportive care, renally dose all medications. continue Cozaar 2. Mineral bone disorder. Monitor calcium and phosphorus levels. 3. Hypertension. Continue current blood pressure regimen. 4. Cellulitis, improving. Continue current antibiotic regimen. 5. History of coronary artery disease. Continue current treatment plan. 6. History of chronic obstructive pulmonary disease, status post partial lung resection. The patient is stable. Continue supplemental oxygen. 7. Diabetes. Continue current insulin regimen. Problems: Exam/Review of Systems Vital Signs Vitals Vital Signs Date Time Temp Pulse Resp B/P Pulse Ox O2 Delivery O2 Flow Rate FiO2 02/08/17 07:22 98.5 78 16 154/87 92 02/07/17 07:16 Room Air 02/04/17 19:23 2.0 Intake and Output 02/07/17 02/07/17 02/08/17 14:59 22:59 06:59 Intake Total 250 ml 1120 ml 250 ml Balance 250 ml 1120 ml 250 ml Results Result Diagram: 02/07/17 0532 02/07/17 0532 Results 24 hrs Laboratory Tests Test 02/07/17 11:56 02/07/17 17:42 02/07/17 20:26 02/08/17 07:48 Bedside Glucose 163 133 154 131 Medications Medications Current Medications Acetaminophen/ Hydrocodone Bitart ([place] (10)) 1 tab Q4H PRN PO moderate pain Last administered on 02/06/17 17:00; Admin Dose 1 TAB; Start 02/02/17 at 21:00 Diagnostic Test (Pha) (Accu-Chek) 1 ea 02 XX Last administered on 02/03/17 01 :37; Admin Dose 1 EA; Start 02/02/17 at 21:30 Miscellaneous Information 1 ea NOTE XX ; Start 02/02/17 at 21:30 Glucose (Glutose) 15 gm Q15M PRN PO DECREASED GLUCOSE; Start 02/02/17 at 21:30 Glucose (Glutose) 22.5 gm Q15M PRN PO DECREASED GLUCOSE; Start 02/02/17 at 21: 30 Dextrose (D50w Syringe) 25 ml Q15M PRN IV DECREASED GLUCOSE; Start 02/02/17 at 21:30 Dextrose (D50w Syringe) 50 ml Q15M PRN IV DECREASED GLUCOSE; Start 02/02/17 at 21:30 Glucagon (Glucagen) 1 mg Q15M PRN IM DECREASED GLUCOSE; Start 02/02/17 at 21: 30 Glucose (Glutose) 15 gm Q15M PRN BUCCAL DECREASED GLUCOSE; Start 02/02/17 at 21:30 Aspirin (Halfprin) 81 mg DAILY PO Last administered on 02/08/17 07:56; Admin Dose 81 MG; Start 02/03/17 at 09:00 Atorvastatin Calcium (Lipitor) 80 mg DAILY@21 PO Last administered on 20:27; Admin Dose 80 MG; Start 02/03/17 at 21:00 Docusate Sodium (Colace) 100 mg DAILY PRN PO CONSTIPATION; Start 02/03/17 at 00:00 Losartan Potassium (Cozaar) 25 mg DAILY PO Last administered on 02/08/17 07: 56; Admin Dose 25 MG; Start 02/03/17 at 09:00 Metoprolol Succinate (Toprol Xl) 25 mg BID PO Last administered on 02/08/17 07:55; Admin Dose 25 MG; Start 02/03/17 at 09:00 Ticagrelor (Brilinta) 90 mg BID PO Last administered on 02/08/17 08:00; Admin Dose 90 MG; Start 02/03/17 at 09:00 Tramadol HCl (Ultram) 50 mg TID PRN PO PAIN Last administered on 02/04/17 23: 33; Admin Dose 50 MG; Start 02/03/17 at 00:00 Zolpidem Tartrate (Ambien) 10 mg QHS PRN PO INSOMNIA Last administered on 02/07 22:46; Admin Dose 10 MG; Start 02/03/17 at 00:00 Hydralazine HCl (Apresoline) 10 mg Q4H PRN IV SBP > 160; Start 02/03/17 at 00: 00 Insulin Glargine (Lantus) 14 unit DAILY@08 SC Last administered on 02/08/17 07:51; Admin Dose 14 UNIT; Start 02/04/17 at 08:00 Salmeterol Xinafoate/ Fluticasone (Advair 500/50 Diskus) 1 inh BID INH Last administered on 02/08/17 07:55; Admin Dose 1 INH; Start 02/03/17 at 21:00 Nitroglycerin (Nitroglycerin (Sl Tab) 0.4 Mg) 1 tab Q5M PRN SL ANGINA; Start 02/03/17 at 21:00 Hydromorphone HCl 2 mg 2 mg Q4H PRN IV PAIN Last administered on 02/08/17 05: 22; Admin Dose 2 MG; Start 02/06/17 at 12:00 Vancomycin HCl (Vancocin) 250 ml @ 125 mls/hr Q12H IVPB Last administered on 02/07/17 22:46; Admin Dose 125 MLS/HR; Start 02/06/17 at 23:00 Heparin Sodium (Porcine) (Heparin (5000 Units/0.5 ml)) 5,000 unit Q8 SC Last administered on 02/07/17 22:54; Admin Dose 5,000 UNIT; Start 02/06/17 at 22: 00 Levofloxacin (Levaquin) 500 mg DAILY@06 PO Last administered on 02/08/17 05: 22; Admin Dose 500 MG; Start 02/07/17 at 13:30 Miscellaneous Information (*Rx Drug Level Order Reminder*) VANCO TROUGH @ 1, 000 ON ... ONCE ONCE XX ; Start 02/08/17 at 10:00; Stop 02/08/17 at 10:01 GUILLE SALTER 18, 2017 09:22
[2017-02-08] MEDS: VANCOMYCIN 1 GM in NS 250 ML IVPB SCH ×2 (11:09→23:28)
--- NOTE | 2017-02-08 11:44 | CONS ---
Date/Time of Note Date/Time of Note DATE: 02/08/17 TIME: 11:44 Consult Date/Type/Reason Admit Date/Time Feb 05, 2017 at 11:47 Initial Consult Date 02/03/17 Type of Consultation: card Subjective CARDIOLOGY FOLLOW UP NOTE: S: pt with no chest pain or pressure no syncope or presyncope d/w staff pt s/p ORIF toe 02/04/17 he still toe pain today. 'he wants to go home O: General: obese. no acute distress HEENT: NC/AT. pupils are equal. round. NECK: NO JVD. no stridor. CV: RRR. systolic murmur; no gallop or rubs. PULM: + wheezing or rhonchi. GI: SOFT, NT, ND, no rebound or guarding Extremity: trace B/L LE edema. no clubbing. right foot toe s/p surgery and in dressing neuro: awake and alert, OX3. Psych: calm and pleasant rectal: deferred ECG reviewed NSR RBBB, septal infarct right foot xray 1. Dorsolateral dislocation at the second proximal interphalangeal joint. 2. No definite acute osseous abnormality. Objective Vital Signs Date Time Temp Pulse Resp B/P Pulse Ox O2 Delivery O2 Flow Rate FiO2 02/08/17 07:22 98.5 78 16 154/87 92 02/07/17 07:16 Room Air 02/04/17 19:23 2.0 Intake and Output 02/07/17 02/07/17 02/08/17 15:00 23:00 07:00 Intake Total 250 ml 1120 ml 250 ml Balance 250 ml 1120 ml 250 ml Results/Medications Result Diagram: 02/07/17 0532 02/07/17 0532 Results 24 hrs Laboratory Tests Test 02/07/17 11:56 02/07/17 17:42 02/07/17 20:26 02/08/17 07:48 Bedside Glucose 163 133 154 131 Test 02/08/17 10:18 Vancomycin Level Trough 13.7 Medications Current Medications Acetaminophen/ Hydrocodone Bitart ([place] (10/325)) 1 tab Q4H PRN PO moderate pain Last administered on 02/06/17t 17:00; Admin Dose 1 TAB; Start 02/02/17 at 21:00 Diagnostic Test (Pha) (Accu-Chek) 1 ea 02 XX Last administered on 02/03/17 01 :37; Admin Dose 1 EA; Start 02/02/17 at 21:30 Miscellaneous Information 1 ea NOTE XX ; Start 02/02/17 at 21:30 Glucose (Glutose) 15 gm Q15M PRN PO DECREASED GLUCOSE; Start 02/02/17 at 21:30 Glucose (Glutose) 22.5 gm Q15M PRN PO DECREASED GLUCOSE; Start 02/02/17 at 21: 30 Dextrose (D50w Syringe) 25 ml Q15M PRN IV DECREASED GLUCOSE; Start 02/02/17 at 21:30 Dextrose (D50w Syringe) 50 ml Q15M PRN IV DECREASED GLUCOSE; Start 02/02/17 at 21:30 Glucagon (Glucagen) 1 mg Q15M PRN IM DECREASED GLUCOSE; Start 02/02/17 at 21: 30 Glucose (Glutose) 15 gm Q15M PRN BUCCAL DECREASED GLUCOSE; Start 02/02/17 at 21:30 Aspirin (Halfprin) 81 mg DAILY PO Last administered on 02/08/17 07:56; Admin Dose 81 MG; Start 02/03/17 at 09:00 Atorvastatin Calcium (Lipitor) 80 mg DAILY@21 PO Last administered on 20:27; Admin Dose 80 MG; Start 02/03/17 at 21:00 Docusate Sodium (Colace) 100 mg DAILY PRN PO CONSTIPATION; Start 02/03/17 at 00:00 Losartan Potassium (Cozaar) 25 mg DAILY PO Last administered on 02/08/17 07: 56; Admin Dose 25 MG; Start 02/03/17 at 09:00 Metoprolol Succinate (Toprol Xl) 25 mg BID PO Last administered on 02/08/17 07:55; Admin Dose 25 MG; Start 02/03/17 at 09:00 Ticagrelor (Brilinta) 90 mg BID PO Last administered on 02/08/17 08:00; Admin Dose 90 MG; Start 02/03/17 at 09:00 Tramadol HCl (Ultram) 50 mg TID PRN PO PAIN Last administered on 02/04/17 23: 33; Admin Dose 50 MG; Start 02/03/17 at 00:00 Zolpidem Tartrate (Ambien) 10 mg QHS PRN PO INSOMNIA Last administered on 02/07 22:46; Admin Dose 10 MG; Start 02/03/17 at 00:00 Hydralazine HCl (Apresoline) 10 mg Q4H PRN IV SBP > 160; Start 02/03/17 at 00: 00 Insulin Glargine (Lantus) 14 unit DAILY@08 SC Last administered on 02/08/17 07:51; Admin Dose 14 UNIT; Start 02/04/17 at 08:00 Salmeterol Xinafoate/ Fluticasone (Advair 500/50 Diskus) 1 inh BID INH Last administered on 02/08/17 07:55; Admin Dose 1 INH; Start 02/03/17 at 21:00 Nitroglycerin (Nitroglycerin (Sl Tab) 0.4 Mg) 1 tab Q5M PRN SL ANGINA; Start 02/03/17 at 21:00 Hydromorphone HCl 2 mg 2 mg Q4H PRN IV PAIN Last administered on 02/08/17 10: 19; Admin Dose 2 MG; Start 02/06/17 at 12:00 Vancomycin HCl (Vancocin) 250 ml @ 125 mls/hr Q12H IVPB Last administered on 02/08/17 11:09; Admin Dose 125 MLS/HR; Start 02/06/17 at 23:00 Heparin Sodium (Porcine) (Heparin (5000 Units/0.5 ml)) 5,000 unit Q8 SC Last administered on 02/07/17 22:54; Admin Dose 5,000 UNIT; Start 02/06/17 at 22: 00 Levofloxacin (Levaquin) 500 mg DAILY@06 PO Last administered on 02/08/17 05: 22; Admin Dose 500 MG; Start 02/07/17 at 13:30 Assessment/Plan Chief Complaint/Hosp Course 1. CV preop evaluation 2. R toe dislocation +/- cellulitis: s/p surgery 3. hx severe multivessel CAD: s/p multiple PCI 4. S/P Anterior stemi 06/24/16 5. s/p PCI LAD, RCA using MEDINA 07/08 6. Dyslipidemia 7/ DM 8. HTN 9./ COPD 10.HX if SMOKING 11. CKD: STABLE Recommendations: cont current cardiac care: cont asa/ brilinta. Antibiotic as per internal medicine/ ID rec pain management as per IM/ podiatry. post op care dc planning as per IM. Podiatry rec. Thank you for his referral will continue to follow along with you. VANESSA DÍAZ MD FAC Problems: VNAESSA DÍAZ MD Feb 08, 2017 11:44
[2017-02-08] MEDS: traMADol 50 MG TAB PO PRN ×2 (13:17→22:10)
--- NOTE | 2017-02-08 14:13 | PN ---
Date/Time of Note Date/Time of Note DATE: 02/08/17 TIME: 14:09 Assessment/Plan VTE Prophylaxis VTE Prophylaxis Intervention: heparin Lines/Catheters IV Catheter Type (from Nrs): PICC Line Central line still needed: Yes Assessment/Plan Chief Complaint/Hosp Course 1. Right foot cellulitis with right foot ulceration of the plantar aspect with dorsolateral dislocation of the second proximal interphalangeal joint. S/P open reduction, internal fixation right second toe dislocation, debridement of ulceration, excisional 2 cm x 3 mm, and simple closure of ulceration right plantar toe of length of 2 cm. Continue antimicrobials as per ID. 2. Status post fall at home. The fall could be mechanical since the patient verbalized that he slipped over something on the floor. However, the possibility of syncope is not ruled out. The patient's brain CT scan was negative for any acute findings. Bilateral carotid Doppler study showing mild soft and calcific plaque without evidence for hemodynamically significant stenosis with antegrade flow seen within the vertebral arteries bilaterally. 3. CAD. Status post PCI with drug-eluting stent to the LAD and RCA in June 2016. Continue dual antiplatelet therapy. 4. Type 2 diabetes mellitus. Hemoglobin A1c 6.4. Continue sliding scale insulin with pre-meal insulin and Lantus insulin. 5. Dyslipidemia. Continue statins. 6. COPD. Continue inhaled bronchodilators. No evidence of any exacerbation. 7. Acute on chronic kidney disease. Avoid nephrotoxic medications. The patient being followed by nephrology. 8. Nicotine use. Cessation advised. 9. Fluids, electrolytes, and nutrition. Carbohydrate controlled diet. 10. DVT prophylaxis. SQ Heparin. 11. Plan. Continue antimicrobials. Await finalization of antibiotics and home health to be arranged before discharging the patient home. Case discussed with Dr. Caro. Problems: Subjective 24 Hr Interval Summary Free Text/Dictation Continues to have significant R foot pain. Exam/Review of Systems Vital Signs Vitals Vital Signs Date Time Temp Pulse Resp B/P Pulse Ox O2 Delivery O2 Flow Rate FiO2 02/08/17 07:22 98.5 78 16 154/87 92 02/07/17 07:16 Room Air 02/04/17 19:23 2.0 Intake and Output 02/07/17 02/07/17 02/08/17 15:00 23:00 07:00 Intake Total 250 ml 1120 ml 250 ml Balance 250 ml 1120 ml 250 ml Exam General: Obese, 61 year-old male lying in bed in no apparent distress. HEENT: Normocephalic, atraumatic. Eyes: Anicteric sclerae, conjunctivae clear. ENT: Nasal septum midline, oral mucosa moist. Neck supple, no JVD noticed. Respiratory: Bilaterally clear breath sounds. No use of accessory muscles of respiration. No adventitious breath sounds. Cardiovascular: S1, S2 heard. Regular rate and rhythm. Abdomen: Soft, nontender, and nondistended. Bowel sounds positive in all 4 quadrants. Genitourinary: Deferred. Extremities: No cyanosis. Peripheral pulses palpable. Right foot dressing. Neurologic: Cranial nerves II through XII grossly intact. The patient is awake, alert, and oriented. Results Result Diagram: 02/07/17 0532 02/07/17 0532 Results 24 hrs Laboratory Tests Test 02/07/17 17:42 02/07/17 20:26 02/08/17 07:48 02/08/17 10:18 Bedside Glucose 133 154 131 Vancomycin Level Trough 13.7 Test 02/08/17 11:53 Bedside Glucose 174 Medications Medications Current Medications Acetaminophen/ Hydrocodone Bitart ([place] (10)) 1 tab Q4H PRN PO moderate pain Last administered on 02/06/17 17:00; Admin Dose 1 TAB; Start 02/02/17 at 21:00 Diagnostic Test (Pha) (Accu-Chek) 1 ea 02 XX Last administered on 02/03/17 01 :37; Admin Dose 1 EA; Start 02/02/17 at 21:30 Miscellaneous Information 1 ea NOTE XX ; Start 02/02/17 at 21:30 Glucose (Glutose) 15 gm Q15M PRN PO DECREASED GLUCOSE; Start 02/02/17 at 21:30 Glucose (Glutose) 22.5 gm Q15M PRN PO DECREASED GLUCOSE; Start 02/02/17 at 21: 30 Dextrose (D50w Syringe) 25 ml Q15M PRN IV DECREASED GLUCOSE; Start 02/02/17 at 21:30 Dextrose (D50w Syringe) 50 ml Q15M PRN IV DECREASED GLUCOSE; Start 02/02/17 at 21:30 Glucagon (Glucagen) 1 mg Q15M PRN IM DECREASED GLUCOSE; Start 02/02/17 at 21: 30 Glucose (Glutose) 15 gm Q15M PRN BUCCAL DECREASED GLUCOSE; Start 02/02/17 at 21:30 Aspirin (Halfprin) 81 mg DAILY PO Last administered on 02/08/17 07:56; Admin Dose 81 MG; Start 02/03/17 at 09:00 Atorvastatin Calcium (Lipitor) 80 mg DAILY@21 PO Last administered on 20:27; Admin Dose 80 MG; Start 02/03/17 at 21:00 Docusate Sodium (Colace) 100 mg DAILY PRN PO CONSTIPATION; Start 02/03/17 at 00:00 Losartan Potassium (Cozaar) 25 mg DAILY PO Last administered on 02/08/17 07: 56; Admin Dose 25 MG; Start 02/03/17 at 09:00 Metoprolol Succinate (Toprol Xl) 25 mg BID PO Last administered on 02/08/17 07:55; Admin Dose 25 MG; Start 02/03/17 at 09:00 Ticagrelor (Brilinta) 90 mg BID PO Last administered on 02/08/17 08:00; Admin Dose 90 MG; Start 02/03/17 at 09:00 Tramadol HCl (Ultram) 50 mg TID PRN PO PAIN Last administered on 02/08/17 13: 17; Admin Dose 50 MG; Start 02/03/17 at 00:00 Zolpidem Tartrate (Ambien) 10 mg QHS PRN PO INSOMNIA Last administered on 02/07 22:46; Admin Dose 10 MG; Start 02/03/17 at 00:00 Hydralazine HCl (Apresoline) 10 mg Q4H PRN IV SBP > 160; Start 02/03/17 at 00: 00 Insulin Glargine (Lantus) 14 unit DAILY@08 SC Last administered on 02/08/17 07:51; Admin Dose 14 UNIT; Start 02/04/17 at 08:00 Salmeterol Xinafoate/ Fluticasone (Advair 500/50 Diskus) 1 inh BID INH Last administered on 02/08/17 07:55; Admin Dose 1 INH; Start 02/03/17 at 21:00 Nitroglycerin (Nitroglycerin (Sl Tab) 0.4 Mg) 1 tab Q5M PRN SL ANGINA; Start 02/03/17 at 21:00 Hydromorphone HCl 2 mg 2 mg Q4H PRN IV PAIN Last administered on 02/08/17 10: 19; Admin Dose 2 MG; Start 02/06/17 at 12:00 Vancomycin HCl (Vancocin) 250 ml @ 125 mls/hr Q12H IVPB Last administered on 02/08/17 11:09; Admin Dose 125 MLS/HR; Start 02/06/17 at 23:00 Heparin Sodium (Porcine) (Heparin (5000 Units/0.5 ml)) 5,000 unit Q8 SC Last administered on 02/07/17 22:54; Admin Dose 5,000 UNIT; Start 02/06/17 at 22: 00 Levofloxacin (Levaquin) 500 mg DAILY@06 PO Last administered on 02/08/17 05: 22; Admin Dose 500 MG; Start 02/07/17 at 13:30 DUANE CHO NP Feb 08, 2017 14:13
[2017-02-08 14:38] VITALS: BP 151/80; RESP 18
--- NOTE | 2017-02-08 15:07 | CONS ---
Date/Time of Note Date/Time of Note DATE: 02/08/17 TIME: 15:07 Assessment/Plan Assessment/Plan Chief Complaint/Hosp Course ID PROGRESS NOTE CURRENT ABX: DAY # =>Vanco IV + Levaquin 24H INTERVAL SUMMARY * The patient was off the floor when I rounded earlier today in IR having PICC Line placed, -> returned later he is resting comfortably, afebrile, VSS, NAD, no new c/o, no new issues * CHART REVIEWED: See vitals, labs as per below. * MICRO REVIEWED: 02/04/17 Wound Cx: Toe -> (+)CoNS TISSUE (BIOPSY) CULTURE Final Organism 1 COAGULASE NEGATIVE STAPH QUANTITY 2+ COAG NEG M.I.C. RX --------- --- CEFAZOLIN R CIPROFLOXACIN 4 R CLINDAMYCIN >=8 R DOXYCYCLINE S ERYTHROMYCIN >=8 R LEVOFLOXACIN 4 R OXACILLIN >=4 R PENICILLIN-G >=0.5 R RIFAMPIN <=0.5 S VANCOMYCIN 1 S TRIMETHOPRIM/SULFAMETHOXAZOLE <=10 S PHYSICAL EXAMINATION: GENERAL: VSS, afebrile, NAD HEENT: Unremarkable NECK: Supple, trach midline CHEST: Equal chest rise bilaterally, without dyspnea on observation HEART: RRR ABDOMEN: Soft, NT, ND EXT: Warm, With right foot dressing intact. SKIN: No rash, no diaphoresis ID ASSESSMENT: 61 yo obese M admit VPH: 1. Right second toe open dislocation, status post open reduction and internal fixation with debridement. * 02/04/17 Tissue Cx: COAGULASE NEGATIVE STAPH QUANTITY 2+ 2. Right foot cellulitis. 3. Diabetes. 4. History of myocardial infarction. 5. Chronic obstructive pulmonary disease with history of partial lung resection. 6. Acute renal failure, possibly on chronic kidney disease-> Improved ABX ALLERGIES: None to ABX INVASIVES: PICC 02/07/17 CURRENT ABX: Vanco IV + Levaquin ID RECOMMENDATIONS/PLAN: 1. DC Levaquin 2. When cleared by primary MD for DC -> Patient may DC home on the following ABX via w/PICC care per protocol. May DC PICC on last day ABX 03/10/17 * Vancomycin 1GM IVPB Q12 H -> dose times 0900 & 2100 with continued dose per outside pharmacist x total 28 days until last day 03/10/17 * BASELINES: * WT 96.2KG; BSA 2.18 M2, bmi 32.2 * S.Creatinine range 02/05/17 1.53 -> 02/06-> 1.37 -> 02/04-> 1.41 -> 02/05 -> 1.26 -> 02/06 1.28 -> 02/07 1.16 -> 02/08 N/A * Vanco IV started 1GM x1 02/02/17 @ 1500 -> 02/03/17 Vanco 1.5GM IV x1 @ 1200 ->02/03 Vanco 750mg IV x1 @ ~1200 * -> Vanco 750mg IV Q12H 02/04 -> thru to 02/06/17 1100 w/Vanco TROUGH @ 22:14 = level 11.1 * -> Vanco 1GM IV Q12H started on 02/06 @ 1200 -> w/last Vanco trough 02/08/17 @ 10:18 level = 13.7 * -> Vanco 1 GM IV Q12H continued per [facility] clinical pharmacist w/next dose due ~ 2300 02/08/17 . Problems: Consultation Date/Type/Reason Admit Date/Time Feb 05, 2017 at 11:47 Initial Consult Date 02/03/17 Exam/Review of Systems Vital Signs Vitals Vital Signs Date Time Temp Pulse Resp B/P Pulse Ox O2 Delivery O2 Flow Rate FiO2 02/08/17 14:38 98.2 75 18 151/80 95 02/07/17 07:16 Room Air 02/04/17 19:23 2.0 Intake and Output 02/07/17 02/07/17 02/08/17 15:00 23:00 07:00 Intake Total 250 ml 1120 ml 250 ml Balance 250 ml 1120 ml 250 ml Results Result Diagram: 02/07/17 0532 02/07/17 0532 Results 24 hrs Laboratory Tests Test 02/07/17 17:42 02/07/17 20:26 02/08/17 07:48 02/08/17 10:18 Bedside Glucose 133 154 131 Vancomycin Level Trough 13.7 Test 02/08/17 11:53 Bedside Glucose 174 Medications Medications Current Medications Acetaminophen/ Hydrocodone Bitart ([place] ([address]25)) 1 tab Q4H PRN PO moderate pain Last administered on 02/06/17 17:00; Admin Dose 1 TAB; Start 02/02/17 at 21:00 Diagnostic Test (Pha) (Accu-Chek) 1 ea 02 XX Last administered on 02/03/17 01 :37; Admin Dose 1 EA; Start 02/02/17 at 21:30 Miscellaneous Information 1 ea NOTE XX ; Start 02/02/17 at 21:30 Glucose (Glutose) 15 gm Q15M PRN PO DECREASED GLUCOSE; Start 02/02/17 at 21:30 Glucose (Glutose) 22.5 gm Q15M PRN PO DECREASED GLUCOSE; Start 02/02/17 at 21: 30 Dextrose (D50w Syringe) 25 ml Q15M PRN IV DECREASED GLUCOSE; Start 02/02/17 at 21:30 Dextrose (D50w Syringe) 50 ml Q15M PRN IV DECREASED GLUCOSE; Start 02/02/17 at 21:30 Glucagon (Glucagen) 1 mg Q15M PRN IM DECREASED GLUCOSE; Start 02/02/17 at 21: 30 Glucose (Glutose) 15 gm Q15M PRN BUCCAL DECREASED GLUCOSE; Start 02/02/17 at 21:30 Aspirin (Halfprin) 81 mg DAILY PO Last administered on 02/08/17 07:56; Admin Dose 81 MG; Start 02/03/17 at 09:00 Atorvastatin Calcium (Lipitor) 80 mg DAILY@21 PO Last administered on 20:27; Admin Dose 80 MG; Start 02/03/17 at 21:00 Docusate Sodium (Colace) 100 mg DAILY PRN PO CONSTIPATION; Start 02/03/17 at 00:00 Losartan Potassium (Cozaar) 25 mg DAILY PO Last administered on 02/08/17 07: 56; Admin Dose 25 MG; Start 02/03/17 at 09:00 Metoprolol Succinate (Toprol Xl) 25 mg BID PO Last administered on 02/08/17 07:55; Admin Dose 25 MG; Start 02/03/17 at 09:00 Ticagrelor (Brilinta) 90 mg BID PO Last administered on 02/08/17 08:00; Admin Dose 90 MG; Start 02/03/17 at 09:00 Tramadol HCl (Ultram) 50 mg TID PRN PO PAIN Last administered on 02/08/17 13: 17; Admin Dose 50 MG; Start 02/03/17 at 00:00 Zolpidem Tartrate (Ambien) 10 mg QHS PRN PO INSOMNIA Last administered on 02/07 22:46; Admin Dose 10 MG; Start 02/03/17 at 00:00 Hydralazine HCl (Apresoline) 10 mg Q4H PRN IV SBP > 160; Start 02/03/17 at 00: 00 Insulin Glargine (Lantus) 14 unit DAILY@08 SC Last administered on 02/08/17 07:51; Admin Dose 14 UNIT; Start 02/04/17 at 08:00 Salmeterol Xinafoate/ Fluticasone (Advair 500/50 Diskus) 1 inh BID INH Last administered on 02/08/17 07:55; Admin Dose 1 INH; Start 02/03/17 at 21:00 Nitroglycerin (Nitroglycerin (Sl Tab) 0.4 Mg) 1 tab Q5M PRN SL ANGINA; Start 02/03/17 at 21:00 Hydromorphone HCl 2 mg 2 mg Q4H PRN IV PAIN Last administered on 02/08/17 10: 19; Admin Dose 2 MG; Start 02/06/17 at 12:00 Vancomycin HCl (Vancocin) 250 ml @ 125 mls/hr Q12H IVPB Last administered on 02/08/17 11:09; Admin Dose 125 MLS/HR; Start 02/06/17 at 23:00 Heparin Sodium (Porcine) (Heparin (5000 Units/0.5 ml)) 5,000 unit Q8 SC Last administered on 02/08/17 15:03; Admin Dose 5,000 UNIT; Start 02/06/17 at 22: 00 Levofloxacin (Levaquin) 500 mg DAILY@06 PO Last administered on 02/08/17 05: 22; Admin Dose 500 MG; Start 02/07/17 at 13:30 CHERIE WALKER NP Feb 08, 2017 15:07
[2017-02-08 19:54] VITALS: BP 147/86; RESP 20
[2017-02-08] MEDS: ATORVASTATIN 80 MG TAB PO SCH (21:56)
[2017-02-09] MEDS: ACCUCHECK 2 AM XX SCH (02:00)
[2017-02-09] MEDS: LEVOFLOXACIN 500 MG TAB PO SCH (05:59)
[2017-02-09] MEDS: HEPARIN 5,000 UNIT/0.5 ML VIAL SC SCH ×2 (06:05→14:16)
[2017-02-09 06:35] LABS: BASOPHIL # 0.1 10^3/ul (0.0-0.1); BASOPHILS % 0.8 % (0.0-2.0); EOSINOPHILS # 0.3 10^3/ul (0.0-0.5); EOSINOPHILS % 4.3 % (0.0-7.0); HEMATOCRIT 45.4 % (42.0-52.0); HEMOGLOBIN 15.3 g/dl (14.0-18.0); LYMPHOCYTES # 2.3 10^3/ul (0.8-2.9); LYMPHOCYTES % 30.3 % (15.0-51.0); MEAN CORPUSCULAR HEMOGLOBIN 31.1 pg (29.0-33.0); MEAN CORPUSCULAR HGB CONC 33.7 g/dl (32.0-37.0); MEAN CORPUSCULAR VOLUME 92.3 fl (82.0-101.0); MEAN PLATELET VOLUME 10.7 fl (7.4-10.4); MONOCYTE # 0.7 10^3/ul (0.3-0.9); MONOCYTES % 9.2 % (0.0-11.0); NEUTROPHIL # 4.1 10^3/ul (1.6-7.5); NEUTROPHILS % 54.6 % (39.0-77.0); PLATELET COUNT 205 10^3/UL (140-415); RED BLOOD COUNT 4.92 10^6/ul (4.70-6.10); RED CELL DISTRIBUTION WIDTH 12.9 % (11.5-14.5); WHITE BLOOD COUNT 7.5 10^3/ul (4.8-10.8)
[2017-02-09 06:56] LABS: CALCIUM 9.4 mg/dl (8.4-10.2); CREATININE 1.21 mg/dl (0.61-1.24)
[2017-02-09 06:59] LABS: MAGNESIUM 1.7 mg/dl (1.7-2.5); PHOSPHORUS 3.7 mg/dl (2.5-4.9)
[2017-02-09] MEDS: SALMETEROL/FLUTICASONE 500/50 INHA INH SCH ×2 (07:53→20:01)
[2017-02-09] MEDS: METOPROLOL (XL) 25 MG TAB PO SCH ×2 (07:53→20:02)
[2017-02-09] MEDS: ASPIRIN (EC) 81 MG TAB PO SCH (07:54)
[2017-02-09] MEDS: LOSARTAN 25 MG TAB PO SCH (07:54)
[2017-02-09 08:00] VITALS: BP 178/85; RESP 16
[2017-02-09] MEDS: Insulin NOVOLOG SS MILD Algorithm (SS with meals and bedtime) SC SCH ×4 (08:00→20:01)
[2017-02-09] MEDS: HYDROmorphONE 2 MG/ML SYG IV PRN ×2 (08:09→20:13)
[2017-02-09] MEDS: INSULIN ASPART [NOVOLOG] 3 ML PEN SC SCH ×3 (08:12→17:36)
[2017-02-09] MEDS: INSULIN GLARGINE [LANtus] 3 ML PEN SC SCH (08:12)
[2017-02-09] MEDS: TICAGRELOR 90 MG TABLET PO SCH ×2 (08:12→20:05)
--- NOTE | 2017-02-09 09:01 | PN ---
Date/Time of Note Date/Time of Note DATE: 02/09/17 TIME: 09:00 Assessment/Plan VTE Prophylaxis VTE Prophylaxis Intervention: other Lines/Catheters IV [facility]): P[facility] Line Central line still needed: Yes Assessment/Plan Chief Complaint/Hosp Course renal follow up SUBJECTIVE: The patient is stable. No events overnight. No fevers, chills, nausea, vomiting. OBJECTIVE: HEENT: Head is normocephalic. NECK: Supple. HEART: Regular rate. LUNGS: Show diminished breath sounds at the base. ABDOMEN: Soft, nontender to palpation. No rebound or guarding. EXTREMITIES: Negative for clubbing, cyanosis, no edema. DERMATOLOGIC: No rashes. MUSCULOSKELETAL: No joint effusions. NEUROLOGIC: No change in exam. MEDICATIONS: The patient's medications have been reviewed. ASSESSMENT AND PLAN: 1. Nonoliguric acute kidney injury on top of chronic kidney disease stage III with a previous baseline creatinine of 1.2 mg/dL. Etiology of acute kidney injury is secondary to hemodynamics. Renal function has returned to baseline. Continue current treatment plan, supportive care, renally dose all medications. continue Cozaar 2. Mineral bone disorder. Monitor calcium and phosphorus levels. 3. Hypertension. Continue current blood pressure regimen. 4. Cellulitis, improving. Continue current antibiotic regimen. 5. History of coronary artery disease. Continue current treatment plan. 6. History of chronic obstructive pulmonary disease, status post partial lung resection. The patient is stable. Continue supplemental oxygen. 7. Diabetes. Continue current insulin regimen. Problems: Exam/Review of Systems Vital Signs Vitals Vital Signs Date Time Temp Pulse Resp B/P Pulse Ox O2 Delivery O2 Flow Rate FiO2 02/09/17 08:00 98.3 69 16 178/85 94 02/07/17 07:16 Room Air Intake and Output 02/08/17 02/08/17 02/09/17 15:00 23:00 07:00 Intake Total 950 ml 1440 ml Balance 950 ml 1440 ml Results Result Diagram: 02/09/17 0559 02/09/17 0559 Results 24 hrs Laboratory Tests Test 02/08/17 10:18 02/08/17 11:53 02/08/17 17:17 02/08/17 21:53 Vancomycin Level Trough 13.7 Bedside Glucose 174 187 125 Test 02/09/17 05:59 02/09/17 07:52 White Blood Count 7.5 Red Blood Count 4.92 Hemoglobin 15.3 Hematocrit 45.4 Mean Corpuscular Volume 92.3 Mean Corpuscular Hemoglobin 31.1 Mean Corpuscular Hemoglobin Concent 33.7 Red Cell Distribution Width 12.9 Platelet Count 205 Mean Platelet Volume 10.7 H Neutrophils % 54.6 Lymphocytes % 30.3 Monocytes % 9.2 Eosinophils % 4.3 Basophils % 0.8 Nucleated Red Blood Cells % 0.0 Neutrophils # 4.1 Lymphocytes # 2.3 Monocytes # 0.7 Eosinophils # 0.3 Basophils # 0.1 Nucleated Red Blood Cells # 0.0 Sodium Level 144 Potassium Level 5.0 Chloride Level 106 Carbon Dioxide Level 25 Anion Gap 18 H Blood Urea Nitrogen 30 H Creatinine 1.21 Glucose Level 136 Calcium Level 9.4 Phosphorus Level 3.7 Magnesium Level 1.7 Bedside Glucose 128 Medications Medications Current Medications Acetaminophen/ Hydrocodone Bitart ([place] (10/325)) 1 tab Q4H PRN PO moderate pain Last administered on 02/06/17 17:00; Admin Dose 1 TAB; Start 02/02/17 at 21:00 Diagnostic Test (Pha) (Accu-Chek) 1 ea 02 XX Last administered on 02/03/17 01 :37; Admin Dose 1 EA; Start 02/02/17 at 21:30 Miscellaneous Information 1 ea NOTE XX ; Start 02/02/17 at 21:30 Glucose (Glutose) 15 gm Q15M PRN PO DECREASED GLUCOSE; Start 02/02/17 at 21:30 Glucose (Glutose) 22.5 gm Q15M PRN PO DECREASED GLUCOSE; Start 02/02/17 at 21: 30 Dextrose (D50w Syringe) 25 ml Q15M PRN IV DECREASED GLUCOSE; Start 02/02/17 at 21:30 Dextrose (D50w Syringe) 50 ml Q15M PRN IV DECREASED GLUCOSE; Start 02/02/17 at 21:30 Glucagon (Glucagen) 1 mg Q15M PRN IM DECREASED GLUCOSE; Start 02/02/17 at 21: 30 Glucose (Glutose) 15 gm Q15M PRN BUCCAL DECREASED GLUCOSE; Start 02/02/17 at 21:30 Aspirin (Halfprin) 81 mg DAILY PO Last administered on 02/09/17 07:54; Admin Dose 81 MG; Start 02/03/17 at 09:00 Atorvastatin Calcium (Lipitor) 80 mg DAILY@21 PO Last administered on 21:56; Admin Dose 80 MG; Start 02/03/17 at 21:00 Docusate Sodium (Colace) 100 mg DAILY PRN PO CONSTIPATION; Start 02/03/17 at 00:00 Losartan Potassium (Cozaar) 25 mg DAILY PO Last administered on 02/09/17 07: 54; Admin Dose 25 MG; Start 02/03/17 at 09:00 Metoprolol Succinate (Toprol Xl) 25 mg BID PO Last administered on 02/09/17 07:53; Admin Dose 25 MG; Start 02/03/17 at 09:00 Ticagrelor (Brilinta) 90 mg BID PO Last administered on 02/09/17 08:12; Admin Dose 90 MG; Start 02/03/17 at 09:00 Tramadol HCl (Ultram) 50 mg TID PRN PO PAIN Last administered on 02/08/17 22: 10; Admin Dose 50 MG; Start 02/03/17 at 00:00 Zolpidem Tartrate (Ambien) 10 mg QHS PRN PO INSOMNIA Last administered on 02/07 22:46; Admin Dose 10 MG; Start 02/03/17 at 00:00 Hydralazine HCl (Apresoline) 10 mg Q4H PRN IV SBP > 160; Start 02/03/17 at 00: 00 Insulin Glargine (Lantus) 14 unit DAILY@08 SC Last administered on 02/09/17 08:12; Admin Dose 14 UNIT; Start 02/04/17 at 08:00 Salmeterol Xinafoate/ Fluticasone (Advair 500/50 Diskus) 1 inh BID INH Last administered on 02/09/17 07:53; Admin Dose 1 INH; Start 02/03/17 at 21:00 Nitroglycerin (Nitroglycerin (Sl Tab) 0.4 Mg) 1 tab Q5M PRN SL ANGINA; Start 02/03/17 at 21:00 Hydromorphone HCl 2 mg 2 mg Q4H PRN IV PAIN Last administered on 02/09/17 08: 09; Admin Dose 2 MG; Start 02/06/17 at 12:00 Vancomycin HCl (Vancocin) 250 ml @ 125 mls/hr Q12H IVPB Last administered on 02/08/17 23:28; Admin Dose 125 MLS/HR; Start 02/06/17 at 23:00 Heparin Sodium (Porcine) (Heparin (5000 Units/0.5 ml)) 5,000 unit Q8 SC Last administered on 02/09/17 06:05; Admin Dose 5,000 UNIT; Start 02/06/17 at 22: 00 Levofloxacin (Levaquin) 500 mg DAILY@06 PO Last administered on 02/09/17 05: 59; Admin Dose 500 MG; Start 02/07/17 at 13:30 GUILLE SALTER DO Feb 09, 2017 09:01
[2017-02-09] MEDS ORDERED: HYDROCHLOROTHIAZIDE 12.5 MG CAP PO SCH (11:30)
--- NOTE | 2017-02-09 11:38 | CONS ---
Date/Time of Note Date/Time of Note DATE: 02/09/17 TIME: 11:38 Consult Date/Type/Reason Admit Date/Time Feb 05, 2017 at 11:47 Initial Consult Date 02/03/17 Type of Consultation: card Subjective CARDIOLOGY FOLLOW UP NOTE: S: pt with no chest pain or pressure no syncope or presyncope pt s/p ORIF toe 02/04/17 he still toe pain today but improving . O: General: obese. no acute distress HEENT: NC/AT. pupils are equal. round. NECK: NO JVD. no stridor. CV: RRR. systolic murmur; no gallop or rubs. PULM: + wheezing or rhonchi. GI: SOFT, NT, ND, no rebound or guarding Extremity: trace B/L LE edema. no clubbing. right foot toe s/p surgery and in dressing neuro: awake and alert, OX3. Psych: calm and pleasant rectal: deferred ECG reviewed NSR RBBB, septal infarct right foot xray 1. Dorsolateral dislocation at the second proximal interphalangeal joint. 2. No definite acute osseous abnormality. Objective Vital Signs Date Time Temp Pulse Resp B/P Pulse Ox O2 Delivery O2 Flow Rate FiO2 02/09/17 08:00 98.3 69 16 178/85 94 02/07/17 07:16 Room Air Intake and Output 02/08/17 02/08/17 02/09/17 15:00 23:00 07:00 Intake Total 950 ml 1440 ml Balance 950 ml 1440 ml Results/Medications Result Diagram: 02/09/17 0559 02/09/17 0559 Results 24 hrs Laboratory Tests Test 02/08/17 11:53 02/08/17 17:17 02/08/17 21:53 02/09/17 05:59 Bedside Glucose 174 187 125 White Blood Count 7.5 Red Blood Count 4.92 Hemoglobin 15.3 Hematocrit 45.4 Mean Corpuscular Volume 92.3 Mean Corpuscular Hemoglobin 31.1 Mean Corpuscular Hemoglobin Concent 33.7 Red Cell Distribution Width 12.9 Platelet Count 205 Mean Platelet Volume 10.7 H Neutrophils % 54.6 Lymphocytes % 30.3 Monocytes % 9.2 Eosinophils % 4.3 Basophils % 0.8 Nucleated Red Blood Cells % 0.0 Neutrophils # 4.1 Lymphocytes # 2.3 Monocytes # 0.7 Eosinophils # 0.3 Basophils # 0.1 Nucleated Red Blood Cells # 0.0 Sodium Level 144 Potassium Level 5.0 Chloride Level 106 Carbon Dioxide Level 25 Anion Gap 18 H Blood Urea Nitrogen 30 H Creatinine 1.21 Glucose Level 136 Calcium Level 9.4 Phosphorus Level 3.7 Magnesium Level 1.7 Test 02/09/17 07:52 Bedside Glucose 128 Medications Current Medications Acetaminophen/ Hydrocodone Bitart ([place] ()) 1 tab Q4H PRN PO moderate pain Last administered on 02/06/17 17:00; Admin Dose 1 TAB; Start 02/02/17 at 21:00 Diagnostic Test (Pha) (Accu-Chek) 1 ea 02 XX Last administered on 02/03/17 01 :37; Admin Dose 1 EA; Start 02/02/17 at 21:30 Miscellaneous Information 1 ea NOTE XX ; Start 02/02/17 at 21:30 Glucose (Glutose) 15 gm Q15M PRN PO DECREASED GLUCOSE; Start 02/02/17 at 21:30 Glucose (Glutose) 22.5 gm Q15M PRN PO DECREASED GLUCOSE; Start 02/02/17 at 21: 30 Dextrose (D50w Syringe) 25 ml Q15M PRN IV DECREASED GLUCOSE; Start 02/02/17 at 21:30 Dextrose (D50w Syringe) 50 ml Q15M PRN IV DECREASED GLUCOSE; Start 02/02/17 at 21:30 Glucagon (Glucagen) 1 mg Q15M PRN IM DECREASED GLUCOSE; Start 02/02/17 at 21: 30 Glucose (Glutose) 15 gm Q15M PRN BUCCAL DECREASED GLUCOSE; Start 02/02/17 at 21:30 Aspirin (Halfprin) 81 mg DAILY PO Last administered on 02/09/17 07:54; Admin Dose 81 MG; Start 02/03/17 at 09:00 Atorvastatin Calcium (Lipitor) 80 mg DAILY@21 PO Last administered on 21:56; Admin Dose 80 MG; Start 02/03/17 at 21:00 Docusate Sodium (Colace) 100 mg DAILY PRN PO CONSTIPATION; Start 02/03/17 at 00:00 Losartan Potassium (Cozaar) 25 mg DAILY PO Last administered on 02/09/17 07: 54; Admin Dose 25 MG; Start 02/03/17 at 09:00 Metoprolol Succinate (Toprol Xl) 25 mg BID PO Last administered on 02/09/17 07:53; Admin Dose 25 MG; Start 02/03/17 at 09:00 Ticagrelor (Brilinta) 90 mg BID PO Last administered on 02/09/17 08:12; Admin Dose 90 MG; Start 02/03/17 at 09:00 Tramadol HCl (Ultram) 50 mg TID PRN PO PAIN Last administered on 02/08/17 22: 10; Admin Dose 50 MG; Start 02/03/17 at 00:00 Zolpidem Tartrate (Ambien) 10 mg QHS PRN PO INSOMNIA Last administered on 02/07 22:46; Admin Dose 10 MG; Start 02/03/17 at 00:00 Hydralazine HCl (Apresoline) 10 mg Q4H PRN IV SBP > 160; Start 02/03/17 at 00: 00 Insulin Glargine (Lantus) 14 unit DAILY@08 SC Last administered on 02/09/17 08:12; Admin Dose 14 UNIT; Start 02/04/17 at 08:00 Salmeterol Xinafoate/ Fluticasone (Advair 500/50 Diskus) 1 inh BID INH Last administered on 02/09/17 07:53; Admin Dose 1 INH; Start 02/03/17 at 21:00 Nitroglycerin (Nitroglycerin (Sl Tab) 0.4 Mg) 1 tab Q5M PRN SL ANGINA; Start 02/03/17 at 21:00 Hydromorphone HCl 2 mg 2 mg Q4H PRN IV PAIN Last administered on 02/09/17 08: 09; Admin Dose 2 MG; Start 02/06/17 at 12:00 Vancomycin HCl (Vancocin) 250 ml @ 125 mls/hr Q12H IVPB Last administered on 02/08/17 23:28; Admin Dose 125 MLS/HR; Start 02/06/17 at 23:00 Heparin Sodium (Porcine) (Heparin (5000 Units/0.5 ml)) 5,000 unit Q8 SC Last administered on 02/09/17 06:05; Admin Dose 5,000 UNIT; Start 02/06/17 at 22: 00 Levofloxacin (Levaquin) 500 mg DAILY@06 PO Last administered on 02/09/17t 05: 59; Admin Dose 500 MG; Start 02/07/17 at 13:30 Hydrochlorothiazide (Hydrochlorothiazide) 12.5 mg DAILY PO ; Start 02/09/17 at 11:30 Assessment/Plan Chief Complaint/Hosp Course 1. CV preop evaluation 2. R toe dislocation +/- cellulitis: s/p surgery 3. hx severe multivessel CAD: s/p multiple PCI 4. S/P Anterior stemi 06/24/16 5. s/p PCI LAD, RCA using MEDINA 07/08 6. Dyslipidemia 7/ DM 8. HTN 9./ COPD 10.HX if SMOKING 11. CKD: STABLE Recommendations: cont current cardiac care: cont asa/ brilinta. Antibiotic as per internal medicine/ ID rec pain management as per IM/ podiatry. post op care will add HCTZ for better BP control dc planning as per IM. Podiatry rec. Thank you for his referral will continue to follow along with you. VANESSA DÍAZ MD FAC Problems: VANESSA DÍAZ MD Feb 09, 2017 11:38
[2017-02-09] MEDS: VANCOMYCIN 1 GM in NS 250 ML IVPB SCH (12:09)
--- NOTE | 2017-02-09 13:14 | PDOCDIS ---
Discharge Instructions DIAGNOSIS Discharge Diagnosis Right foot cellulitis with right foot ulceration of the plantar aspect with dorsolateral dislocation of the second proximal interphalangeal joint. CONDITION Patient Condition: Stable HOME CARE INSTRUCTIONS: Special Diet: 1800 darian diet FOLLOW UP/APPOINTMENTS Follow-up Plan Eros Disla DPM [facility] Office Address [address] [place] [id number] Office OTHER ORDERS: Other Orders: 1. Medications as per the medication list. Complete the course of antibiotics. 2. Follow-up with Dr. Disla in 2 weeks. 3. Take a carbohydrate controlled, low-cholesterol diet. 4. Up with weightbearing on the right heel only. DUANE CHO NP Feb 09, 2017 13:14
[2017-02-09] MEDS ORDERED: LANT3I SC (13:21)
[2017-02-09] MEDS ORDERED: Hydrocodone/Apap (10/325) PO (13:21)
[2017-02-09] MEDS ORDERED: ADV50050 INH (13:21)
[2017-02-09] MEDS ORDERED: NOVO3I SC ×2 (13:21)
[2017-02-09] MEDS ORDERED: HYDR12.53 PO (13:21)
[2017-02-09] MEDS ORDERED: Vancomycin Iv Per Pharmacy XX (13:21)
[2017-02-09] MEDS ORDERED: HYDR2SYR2 IV (13:21)
[2017-02-09 14:48] VITALS: BP 155/85; RESP 16
--- NOTE | 2017-02-09 17:31 | CONS ---
Date/Time of Note Date/Time of Note DATE: 02/09/17 TIME: 17:26 Assessment/Plan Assessment/Plan Chief Complaint/Hosp Course Assessment/Plan Chief Complaint/Hosp Course ID PROGRESS NOTE CURRENT ABX: DAY # =>Vanco IV + Levaquin 24H INTERVAL SUMMARY 1. Alert. Awake. Complains of Right Foot Pain. * MICRO REVIEWED: 02/04/17 Wound Cx: Toe -> (+)CoNS TISSUE (BIOPSY) CULTURE Final Organism 1 COAGULASE NEGATIVE STAPH QUANTITY 2+ COAG NEG M.I.C. RX --------- --- CEFAZOLIN R CIPROFLOXACIN 4 R CLINDAMYCIN >=8 R DOXYCYCLINE S ERYTHROMYCIN >=8 R LEVOFLOXACIN 4 R OXACILLIN >=4 R PENICILLIN-G >=0.5 R RIFAMPIN <=0.5 S VANCOMYCIN 1 S TRIMETHOPRIM/SULFAMETHOXAZOLE <=10 S PHYSICAL EXAMINATION: GENERAL: VSS, afebrile, NAD HEENT: Unremarkable NECK: Supple, trach midline CHEST: Equal chest rise bilaterally, without dyspnea on observation HEART: RRR ABDOMEN: Soft, NT, ND EXT: Warm, With right foot dressing intact. SKIN: No rash, no diaphoresis ID ASSESSMENT: 61 yo obese M admit VPH: 1. Right second toe open dislocation, status post open reduction and internal fixation with debridement. * 02/04/17 Tissue Cx: COAGULASE NEGATIVE STAPH QUANTITY 2+ 2. Right foot cellulitis. 3. Diabetes. 4. History of myocardial infarction. 5. Chronic obstructive pulmonary disease with history of partial lung resection. 6. Acute renal failure, possibly on chronic kidney disease-> Improved 7. Pain ABX ALLERGIES: None to ABX INVASIVES: PICC 02/07/17 CURRENT ABX: Vanco IV + Levaquin ID RECOMMENDATIONS/PLAN: 1. DC Levaquin. Pain management. GI Prophylaxis. DVT Prophylaxis. 2. When cleared by primary MD for DC -> Patient may DC home on the following ABX via w/PICC care per protocol. May DC PICC on last day ABX 03/10/17 * Vancomycin 1GM IVPB Q12 H -> dose times 0900 & 2100 with continued dose per outside pharmacist x total 28 days until last day 03/10/17 * BASELINES: * WT 96.2KG; BSA 2.18 M2, bmi 32.2 * S.Creatinine range 02/05/17 1.53 -> 02/06-> 1.37 -> 02/04-> 1.41 -> 02/05 -> 1.26 -> 02/06 1.28 -> 02/07 1.16 -> 02/08 N/A * Vanco IV started 1GM x1 02/02/17 @ 1500 -> 02/03/17 Vanco 1.5GM IV x1 @ 1200 ->02/03 Vanco 750mg IV x1 @ ~1200 * -> Vanco 750mg IV Q12H 02/04 -> thru to 02/06/17 1100 w/Vanco TROUGH @ 22:14 = level 11.1 * -> Vanco 1GM IV Q12H started on 02/06 @ 1200 -> w/last Vanco trough 02/08/17 @ 10:18 level = 13.7 * -> Vanco 1 GM IV Q12H continued per [facility] clinical pharmacist w/next dose due ~ 2300 02/08/17 Problems: Consultation Date/Type/Reason Admit Date/Time Feb 05, 2017 at 11:47 Initial Consult Date 02/03/17 Type of Consultation: id Exam/Review of Systems Vital Signs Vitals Vital Signs Date Time Temp Pulse Resp B/P Pulse Ox O2 Delivery O2 Flow Rate FiO2 02/09/17 14:48 98.0 68 16 155/85 94 02/07/17 07:16 Room Air Intake and Output 02/08/17 02/08/17 02/09/17 15:00 23:00 07:00 Intake Total 950 ml 1440 ml Balance 950 ml 1440 ml Results Result Diagram: 02/09/17 0559 02/09/17 0559 Results 24 hrs Laboratory Tests Test 02/08/17 21:53 02/09/17 05:59 02/09/17 07:52 02/09/17 12:11 Bedside Glucose 125 128 205 White Blood Count 7.5 Red Blood Count 4.92 Hemoglobin 15.3 Hematocrit 45.4 Mean Corpuscular Volume 92.3 Mean Corpuscular Hemoglobin 31.1 Mean Corpuscular Hemoglobin Concent 33.7 Red Cell Distribution Width 12.9 Platelet Count 205 Mean Platelet Volume 10.7 H Neutrophils % 54.6 Lymphocytes % 30.3 Monocytes % 9.2 Eosinophils % 4.3 Basophils % 0.8 Nucleated Red Blood Cells % 0.0 Neutrophils # 4.1 Lymphocytes # 2.3 Monocytes # 0.7 Eosinophils # 0.3 Basophils # 0.1 Nucleated Red Blood Cells # 0.0 Sodium Level 144 Potassium Level 5.0 Chloride Level 106 Carbon Dioxide Level 25 Anion Gap 18 H Blood Urea Nitrogen 30 H Creatinine 1.21 Glucose Level 136 Calcium Level 9.4 Phosphorus Level 3.7 Magnesium Level 1.7 Medications Medications Current Medications Acetaminophen/ Hydrocodone Bitart ([place] ()) 1 tab Q4H PRN PO moderate pain Last administered on 02/06/17 17:00; Admin Dose 1 TAB; Start 02/02/17 at 21:00 Diagnostic Test (Pha) (Accu-Chek) 1 ea 02 XX Last administered on 02/03/17 01 :37; Admin Dose 1 EA; Start 02/02/17 at 21:30 Miscellaneous Information 1 ea NOTE XX ; Start 02/02/17 at 21:30 Glucose (Glutose) 15 gm Q15M PRN PO DECREASED GLUCOSE; Start 02/02/17 at 21:30 Glucose (Glutose) 22.5 gm Q15M PRN PO DECREASED GLUCOSE; Start 02/02/17 at 21: 30 Dextrose (D50w Syringe) 25 ml Q15M PRN IV DECREASED GLUCOSE; Start 02/02/17 at 21:30 Dextrose (D50w Syringe) 50 ml Q15M PRN IV DECREASED GLUCOSE; Start 02/02/17 at 21:30 Glucagon (Glucagen) 1 mg Q15M PRN IM DECREASED GLUCOSE; Start 02/02/17 at 21: 30 Glucose (Glutose) 15 gm Q15M PRN BUCCAL DECREASED GLUCOSE; Start 02/02/17 at 21:30 Aspirin (Halfprin) 81 mg DAILY PO Last administered on 02/09/17 07:54; Admin Dose 81 MG; Start 02/03/17 at 09:00 Atorvastatin Calcium (Lipitor) 80 mg DAILY@21 PO Last administered on 21:56; Admin Dose 80 MG; Start 02/03/17 at 21:00 Docusate Sodium (Colace) 100 mg DAILY PRN PO CONSTIPATION; Start 02/03/17 at 00:00 Losartan Potassium (Cozaar) 25 mg DAILY PO Last administered on 02/09/17 07: 54; Admin Dose 25 MG; Start 02/03/17 at 09:00 Metoprolol Succinate (Toprol Xl) 25 mg BID PO Last administered on 02/09/17 07:53; Admin Dose 25 MG; Start 02/03/17 at 09:00 Ticagrelor (Brilinta) 90 mg BID PO Last administered on 02/09/17 08:12; Admin Dose 90 MG; Start 02/03/17 at 09:00 Tramadol HCl (Ultram) 50 mg TID PRN PO PAIN Last administered on 02/08/17 22: 10; Admin Dose 50 MG; Start 02/03/17 at 00:00 Zolpidem Tartrate (Ambien) 10 mg QHS PRN PO INSOMNIA Last administered on 02/07 22:46; Admin Dose 10 MG; Start 02/03/17 at 00:00 Hydralazine HCl (Apresoline) 10 mg Q4H PRN IV SBP > 160; Start 02/03/17 at 00: 00 Insulin Glargine (Lantus) 14 unit DAILY@08 SC Last administered on 02/09/17 08:12; Admin Dose 14 UNIT; Start 02/04/17 at 08:00 Salmeterol Xinafoate/ Fluticasone (Advair 500/50 Diskus) 1 inh BID INH Last administered on 02/09/17 07:53; Admin Dose 1 INH; Start 02/03/17 at 21:00 Nitroglycerin (Nitroglycerin (Sl Tab) 0.4 Mg) 1 tab Q5M PRN SL ANGINA; Start 02/03/17 at 21:00 Hydromorphone HCl 2 mg 2 mg Q4H PRN IV PAIN Last administered on 02/09/17 08: 09; Admin Dose 2 MG; Start 02/06/17 at 12:00 Vancomycin HCl (Vancocin) 250 ml @ 125 mls/hr Q12H IVPB Last administered on 02/09/17 12:09; Admin Dose 125 MLS/HR; Start 02/06/17 at 23:00 Heparin Sodium (Porcine) (Heparin (5000 Units/0.5 ml)) 5,000 unit Q8 SC Last administered on 02/09/17 14:16; Admin Dose 5,000 UNIT; Start 02/06/17 at 22: 00 Levofloxacin (Levaquin) 500 mg DAILY@06 PO Last administered on 02/09/17 05: 59; Admin Dose 500 MG; Start 02/07/17 at 13:30 Hydrochlorothiazide (Hydrochlorothiazide) 12.5 mg DAILY PO Last administered on 02/09/17 12:09; Admin Dose 12.5 MG; Start 02/09/17 at 11:30 MTATY BUNCH NP Feb 09, 2017 17:31
--- NOTE | 2017-02-09 18:12 | DS ---
Date/Time of Note Date/Time of Note DATE: 02/09/17 TIME: 18:08 Discharge Summary Admission/Discharge Info Admit Date/Time Feb 05, 2017 at 11:47 Discharge Date/Time Discharge Diagnosis 1. Right foot cellulitis with right foot ulceration of the plantar aspect with dorsolateral dislocation of the second proximal interphalangeal joint. S/P open reduction, internal fixation right second toe dislocation, debridement of ulceration, excisional 2 cm x 3 mm, and simple closure of ulceration right plantar toe of length of 2 cm. 2. CAD. Status post PCI with drug-eluting stent to the LAD and RCA in June 2016. 4. Type 2 diabetes mellitus. Hemoglobin A1c 6.4. 5. Dyslipidemia. 6. COPD. 7. Acute on chronic kidney disease. 8. Nicotine use. Patient Condition: Stable Consults 1. Mukund Leon MD, Cardiology. 2. Polo Justin MD, Infectious Diseases. 3. Brian Adair DO, Nephrology. 4. Eros Disla DPM, Podiatry. Procedures DATE OF OPERATION: 02/04/2017 PREOPERATIVE DIAGNOSES: 1. Right second toe open dislocation at proximal interphalangeal joint. 2. Ulceration, right second toe. 3. Cellulitis. POSTOPERATIVE DIAGNOSES: 1. Right second toe open dislocation at proximal interphalangeal joint. 2. Ulceration, right second toe. 3. Cellulitis. OPERATION PERFORMED: 1. Open reduction, internal fixation right second toe dislocation. 2. Debridement of ulceration, excisional 2 cm x 3 mm. 3. Simple closure of ulceration right plantar toe of length of [address] IMPRESSION: 1. No evidence of acute intracranial hemorrhage, infarct, or extra-axial fluid collection. 2. Age appropriate cortical atrophy. Otherwise, unremarkable CT brain. Right Foot X-ray IMPRESSION: 1. Dorsolateral dislocation at the second proximal interphalangeal joint. 2. No definite acute osseous abnormality. 2D Echocardiogram Conclusions 1. Normal left ventricular systolic function. Normal left ventricular cavity size. Mild concentric left ventricular hypertrophy. Ejection fraction is visually estimated at 60 %. Tissue Doppler/Mitral Doppler indices are consistent with impaired relaxation (Stage I diastolic dysfunction). 2. Mitral valve leaflets appear moderately thickened. Mild mitral annular calcification. Trace mitral regurgitation. 3. Aortic sclerosis without stenosis. Trace aortic valve regurgitation. 4. Normal appearance of the tricuspid valve. Unable to obtain RVSP due to minimal presence of tricuspid regurgitation. Hx of Present Illness This is a 61-year-old male with a history of STEMI with a finding of multivessel CAD in 06/2016, status post PCI of the RCA and LAD, type 2 diabetes, hypertension, COPD, history of partial lung resection who presented to the ER complaining of right foot swelling, right second toe and right hand pain. He said about 4 days ago he found himself on the floor with trauma to his face. Since then he has been having progressively worsening right second toe and right hand pain as well as right foot swelling. He initially said he was not not sure what happened to him when he lost consciousness and found himself on the floor. But then he said the floor was wet and he slipped. He thinks he was unconscious for about 15 minutes. He denied having had chest pain, palpitation or lightheadedness. When he presented to the ER, vitals were stable. Head CT had no acute findings. X-ray of the right foot showed dorsolateral dislocation at the second proximal interphalangeal joint. Right hand x-ray had no acute findings. Lumbar x-ray and chest x-ray also without acute findings. Hospital Course The patient was admitted to inpatient setting. A podiatry and infectious disease consult was obtained. The patient had evidence of right foot ulceration of the plantar aspect along with radiographic findings of dorsolateral dislocation of the second proximal interphalangeal joint. The patient underwent an open reduction, internal fixation of right second toe dislocation, and debridement of ulceration on 02/04/2017. The patient's right foot wound culture showed coagulase-negative Staphylococcus. The patient was maintained on antibiotics as per infectious diseases and he needs long-term IV antibiotics as per infectious diseases and podiatry. Therefore, a PICC line was inserted. The plan was to discharge the patient home with home health. However, the patient expressed concerns regarding right lower extremity dressing changes as well as timely delivery of IV antibiotics. Therefore, the patient will be discharged to a correction facility for completion of IV antibiotic therapy. The patient had a fall approximately a few days before this hospitalization. The patient was evaluated for any underlying syncope. The patient's studies were negative. The patient's fall at home could have been most probably mechanical. The patient has CAD and he is status post PCI with drug-eluting stent to the LAD and RCA in June 2016. The patient was maintained on dual antiplatelet therapy. The patient was being followed by his research laboratory technician during the hospitalization. The patient's 2D echocardiogram showed preserved left ventricular ejection fraction. The patient has type 2 diabetes mellitus. Hemoglobin A1c was found to be 6.4. He was maintained on sliding scale insulin along with pre-meal insulin and Lantus insulin. The patient's metformin was put on hold because of worsening renal function. The patient has underlying dyslipidemia. He was maintained on statins for the same. The patient has COPD. He was maintained on inhaled bronchodilators. The patient had no evidence of any COPD exacerbation. The patient has history of chronic kidney disease. The patient had evidence of acute on chronic kidney disease. Nephrology was following the patient during the hospitalization. The patient's renal function improved throughout the patient's hospital course. The patient is a current nicotine user. The patient was advised on quitting the use of nicotine. The patient had a stable hospital course. He was cleared by consultants to be discharged. Discharge Instructions 1. Medications as per the medication list. Complete the course of antibiotics. 2. Follow-up with Dr. Disla in 2 weeks. 3. Take a carbohydrate controlled, low-cholesterol diet. 4. Up with weightbearing on the right heel only. The patient verbalized understanding of his discharge instructions. At this time I would like to thank all the consultants for seeing the patient, doing the necessary procedures, and providing clinical recommendations. Case discussed with Dr. Caro. Home Meds Active Scripts Hydromorphone HCl (Dilaudid) 2 Mg/1 Ml Syringe, 2 MG IV Q4H Y for PAIN for 5 Days, #14 Prov:DUANE CHO NP 02/09/17 [Hydrocodone/Apap ()] 1 TAB TAB No Conflict Check, 1 TAB PO Q4H Y for moderate pain for 14 Days Prov:DUANE CHO NP 02/09/17 Insulin Glargine* (Lantus*) 100 Unit/Ml Soln, 14 UNIT SC DAILY@08 for 30 Days, # 30 UNIT Prov:DUANE CHO NP 02/09/17 Insulin Aspart* (Novolog Insulin Pen*) 100 Unit/Ml Soln, 0 UNIT SC AC MEALS AND BEDTIME for 30 Days, #30 UNIT Prov:DUANE CHO NP 02/09/17 Insulin Aspart* (Novolog Insulin Pen*) 100 Unit/Ml Soln, 5 UNIT SC WITH MEALS for 30 Days, #30 UNIT Prov:DUANE CHO NP 02/09/17 Salmeterol Xinaf-Fluticasone* (Advair*) 500/50 Diskus Inhaler, 1 INH INH BID for 30 Days, #1 UNIT Prov:DUANE CHO NP 02/09/17 Hydrochlorothiazide (Hydrochlorothiazide) 12.5 Mg Capsule, 12.5 MG PO DAILY for 30 Days, #30 CAP Prov:DUANE CHO NP 02/09/17 [Vancomycin Iv Per Pharmacy] 1 EA EACH No Conflict Check, 0 EA XX .PER PROTOCOL for 28 Days IVPB Q12H Last Day 03/10/2017. Prov:DUANE CHO NP 02/09/17 Docusate Sodium (Dok) 100 Mg Capsule, 100 MG PO DAILY Y for CONSTIPATION, #20 CAP Prov:GABRIELLE SMITH MD 06/28/16 Aspirin* (Aspirin* EC) 81 Mg Tablet.dr, 81 MG PO DAILY, #30 Prov:GABRIELLE SMITH MD 06/28/16 Metoprolol Succinate* (Toprol XL*) 25 Mg Tab.sr.24h, 25 MG PO BID, #60 Prov:GABRIELLE SMITH MD 06/28/16 Losartan Potassium* (Cozaar*) 25 Mg Tablet, 25 MG PO DAILY, #30 TAB Prov:GABRIELLE SMITH MD 06/28/16 Atorvastatin* (Atorvastatin*) 80 Mg Tablet, 80 MG PO DAILY@21, #30 TAB 2 Refills Prov:GABRIELLE SMITH MD 06/28/16 Ticagrelor* (Brilinta*) 90 Mg Tablet, 90 MG PO BID for 30 Days, #60 TAB Prov:GABRIELLE SMITH MD 06/28/16 Reported Medications Zolpidem Tartrate* (Zolpidem Tartrate*) 10 Mg Tablet, 10 MG PO QHS Y for INSOMNIA, #30 TAB 06/24/16 Tramadol Hcl* (Ultram*) 50 Mg Tablet, 50 MG PO TID Y for PAIN, TAB 06/24/16 Nitroglycerin* (Nitroglycerin* SL) 0.4 Mg Tab.subl, 0.4 MG SL Q5MIN Y for CHEST PAIN, BOTTLE 06/24/16 Discontinued Reported Medications Dulaglutide (Trulicity) 1.5 Mg/0.5 Ml Pen.injctr, 1.5 MG SQ Q7D 06/24/16 Sitagliptin* (Januvia*) 100 Mg Tablet, 100 MG PO DAILY, #30 TAB 06/24/16 Icosapent Ethyl (VASCEPA) 1 Gm Capsule, 2 GM PO BID, CAP 06/24/16 Diazepam* (Diazepam*) 10 Mg Tablet, 10 MG PO DAILY, TAB 06/24/16 Discontinued Scripts Canagliflozin/Metformin HCl (Invokamet Xr 150-1,000 mg Tab) 1 Each Tab.bp.24h, 1 TAB PO BID, #60 TAB Prov:GABRIELLE SMITH MD 06/28/16 Follow-up Plan Eros Disla DPM [facility] Office Address [address] [place] [address] [place] [id number] Office Primary Care Provider Sabine Guerra DO Pending Labs Name: DARINEL FLEMINGRAM Age/Sex: 61/M Attend Dr: OSIEL JO MD Acct: [id number] MR# : [id number] : 1955 Location: [facility] [place] 608-A Admit: 02/05/17 Specimen: [id number] Status: Complete Erwin: 02/04/17-1824 Rcvd: 02/04 Source: [facility]LLIE Sp Descrip: RT SECOND Procedure Result Microbiology GRAM STAIN Final POLYMORPH. LEUKOCYTE NONE SEEN GRAM POS COCCI IN PAIRS RARE TISSUE (BIOPSY) CULTURE Final Organism 1 COAGULASE NEGATIVE STAPH QUANTITY 2+ COAG NEG M.I.C. RX --------- --- CEFAZOLIN R CIPROFLOXACIN 4 R CLINDAMYCIN >=8 R DOXYCYCLINE S ERYTHROMYCIN >=8 R LEVOFLOXACIN 4 R OXACILLIN >=4 R PENICILLIN-G >=0.5 R RIFAMPIN <=0.5 S VANCOMYCIN 1 S TRIMETHOPRIM/SULFAMETHOXAZOLE <=10 S ................................................................................ ............ Flags: Critical Hi = *H Critical Lo = *L Microbiology Abnormal = * Abnormal Hi = H Abnormal Lo = L Blood Bank Abnormal = * Susceptability Flags: S = Sensitive R = Resistant I = Intermediate END OF REPORT Laboratory Tests Test 02/08/17 21:53 02/09/17 05:59 02/09/17 07:52 02/09/17 12:11 Bedside Glucose 125mg/dL (70-220) 128mg/dL (70-220) 205mg/dL (70-220) White Blood Count 7.510^3/ul (4.8-10.8) Red Blood Count 4.9210^6/ul (4.70-6.10) Hemoglobin 15.3g/dl (14.0-18.0) Hematocrit 45.4% (42.0-52.0) Mean Corpuscular Volume 92.3fl (82.0-101.0) Mean Corpuscular Hemoglobin 31.1pg (29.0-33.0) Mean Corpuscular Hemoglobin Concent 33.7g/dl (32.0-37.0) Red Cell Distribution Width 12.9% (11.5-14.5) Platelet Count 39467^3/UL (140-415) Mean Platelet Volume 10.7fl (7.4-10.4) Neutrophils % 54.6% (39.0-77.0) Lymphocytes % 30.3% (15.0-51.0) Monocytes % 9.2% (0.0-11.0) Eosinophils % 4.3% (0.0-7.0) Basophils % 0.8% (0.0-2.0) Nucleated Red Blood Cells % 0.0/100WBC (0.0-0.0) Neutrophils # 4.110^3/ul (1.6-7.5) Lymphocytes # 2.310^3/ul (0.8-2.9) Monocytes # 0.710^3/ul (0.3-0.9) Eosinophils # 0.310^3/ul (0.0-0.5) Basophils # 0.110^3/ul (0.0-0.1) Nucleated Red Blood Cells # 0.010^3/ul (0.0-0.0) Sodium Level 144mmol/L (135-144) Potassium Level 5.0mmol/L (3.5-5.1) Chloride Level 106mmol/L (97-110) Carbon Dioxide Level 25mmol/L (21-31) Anion Gap 18 (8-16) Blood Urea Nitrogen 30mg/dl (7-20) Creatinine 1.21mg/dl (0.61-1.24) Glucose Level 136mg/dl (70-220) Calcium Level 9.4mg/dl (8.4-10.2) Phosphorus Level 3.7mg/dl (2.5-4.9) Magnesium Level 1.7mg/dl (1.7-2.5) Test 02/09/17 17:34 Bedside Glucose 105mg/dL (70-220) DUANE CHO NP Feb 09, 2017 18:12 DUANE CHO NP Feb 09, 2017 18:12
[2017-02-09 20:00] VITALS: BP 141/85; RESP 20
[2017-02-09] MEDS: ATORVASTATIN 80 MG TAB PO SCH (20:01)
[2017-02-09 21:00] VITALS: BP 171/88
[2017-02-09 21:38] VITALS: BP 156/86; PULSE 74
== END 2017-02-09 21:40 | DRG 464 ==
LOC: E/R 11:54 → PP2 18:38 → INTOOBSV 02-03 11:34 → OBSVTOIN 02-03 11:34 → TEL 02-03 14:38 → OBSVTOIN 02-04 14:05 → INTOOBSV 02-04 14:05 → MS2 02-04 17:07 → OBSVTOIN 02-05 11:47
PROVIDERS: ADMIT Internal Medicine; ATTEND Internal Medicine
PROC: 0JBQ0ZZ Excision of Right Foot Subcutaneous Tissue and Fascia, Open Approach (ICD-10-PCS; 2017-02-04)
PROC: 0QSQ04Z Reposition Right Toe Phalanx with Internal Fixation Device, Open Approach (ICD-10-PCS; principal; 2017-02-04 17:30)
PROC: 02HV33Z Insertion of Infusion Device into Superior Vena Cava, Percutaneous Approach (ICD-10-PCS; 2017-02-07)
DX: S93.114A Dislocation of interphalangeal joint of right lesser toe(s), initial encounter (principal); N17.9 Acute kidney failure, unspecified; E11.22 Type 2 diabetes mellitus with diabetic chronic kidney disease; L03.115 Cellulitis of right lower limb; S01.81XA Laceration without foreign body of other part of head, initial encounter; I12.9 Hypertensive chronic kidney disease with stage 1 through stage 4 chronic kidney disease, or unspecified chronic kidney disease; S91.114A Laceration without foreign body of right lesser toe(s) without damage to nail, initial encounter; R55 Syncope and collapse; Z72.0 Tobacco use; I25.10 Atherosclerotic heart disease of native coronary artery without angina pectoris; Z95.5 Presence of coronary angioplasty implant and graft; I25.2 Old myocardial infarction; J44.9 Chronic obstructive pulmonary disease, unspecified; E78.5 Hyperlipidemia, unspecified; N18.9 Chronic kidney disease, unspecified; W19.XXXA Unspecified fall, initial encounter
CPT/HCPCS: 36415; 36569; 70450; 71010; 72100; 73620; 73630; 76937; 80048; 80053; 80061; 80202; 81001; 82550; 82553; 82962; 83036; 83735; 84100; 84484; 85025; 85651; 87070; 90686; 93005; 93306; 93880; 94664; 96374; 96375; 97116; 97162; 97530; G0378; J0360; J0690; J0692; J0696; J1170; J1644; J1815; J2270; J3010; J3370; J3475; J7050; L3260-LT

== ENCOUNTER 2017-04-15 10:04 | Emergency (ER) | END 2017-04-15 13:05 | disposition home or self-care (01) ==

== ENCOUNTER 2018-01-20 15:17 | Emergency (ER) | END 2018-01-20 20:46 | disposition home or self-care (01) ==

== ENCOUNTER 2018-11-02 10:20 | Inpatient (IN) | payer MEDICARE, MEDICAID ==
[~2018-11-02] VITALS: Ht 180.3 cm; Wt 104.0 kg
[2018-11-02] VITALS (32 sets, daily range): BP systolic 124–154; BP diastolic 78–100; PULSE 68–75; RESP 16–23; Ht 180.3 cm; Wt 104.0 kg
[~2018-11-02 10:20] MED LIST changes: +ADV50050 INH; +ALBU18HF INHALATION; +ALPR0.5T PO; +APIX5TAB PO; -ASPI-664 PO; +ASPI-817 PO; +ATOR-2 PO; -ATOR80TA75 PO; -CANA1TAB8 PO; +CANA300T PO; +CLOP75TA27 PO; -DOCU-216 PO; +ESOM40CA PO; +FLUT1AER INHALATION; +HYDR-3671 PO; -ICOS1CAP PO; +LEVO750T25 PO; +LIRA0.6P SQ; -LOSA25TA2 PO; +METO-319 PO; -METO-335 PO; +MTF1000T PO; +NEBI5TAB9 PO; +NICO-546 TD; -Nicotine (14 Mg/24 Hr) TRANSDERM; +PRED20TA PO; +RIVA20TA5 PO; +SITA100T11 PO; -SITA100T8 PO; -TRAM-40 PO; +TRAM50TA PO; +VALS1TAB82 PO; +ZOLP10TA PO; -ZOLP10TA5 PO
[2018-11-02] MEDS ORDERED: IPRATROPIUM (NEB) 0.5 MG/2.5 ML AMP INH ONE (10:30)
[2018-11-02] MEDS ORDERED: METHYLPREDNISOLONE 125 MG INJ IV ONE (10:30)
[2018-11-02] MEDS ORDERED: SOD CHLORIDE 0.9% 1,000 ML IV STA (10:30)
[2018-11-02] MEDS ORDERED: ALBUTEROL 0.083% (NEB) 2.5 MG/3 ML AMP HHN STA (10:30)
[2018-11-02] MEDS ORDERED: IOHEXOL 100 ML ONE (11:48)
[2018-11-02] MEDS ORDERED: SOD CHLORIDE 0.9% 100 ML ONE (11:48)
[2018-11-02] MEDS ORDERED: ONDANSETRON 4 MG INJ IV STA (12:17)
[2018-11-02] MEDS ORDERED: HYDROmorphONE 2 MG/ML SYG IV STA (12:17)
[2018-11-02] MEDS ORDERED: FUROSEMIDE 40 MG INJ IV ONE (12:30)
[2018-11-02] MEDS: FUROSEMIDE 40 MG INJ IV SCH (12:30)
[2018-11-02] MEDS ORDERED: LORAZEPAM 2 MG INJ ONE (12:37)
[2018-11-02] MEDS ORDERED: ONDANSETRON 4 MG INJ IV PRN ×2 (13:00→13:30)
[2018-11-02] MEDS ORDERED: ACETAMINOPHEN 325 MG TAB PO PRN ×2 (13:00→13:30)
[2018-11-02] MEDS ORDERED: LORAZEPAM 2 MG INJ IV ONE ×2 (13:00)
[2018-11-02] MEDS ORDERED: PROPOFOL 100 ML IV STA (13:10)
[2018-11-02] MEDS ORDERED: GLUCOSE GEL 15 GRAM TUBE PO PRN ×2 (13:30)
[2018-11-02] MEDS ORDERED: NACL 0.9% 3 ML SYG IV SCH (13:30)
[2018-11-02] MEDS ORDERED: GLUCOSE GEL 15 GRAM TUBE BUCCAL PRN (13:30)
[2018-11-02] MEDS ORDERED: DEXTROSE 50% 50 ML SYRINGE IV PRN ×2 (13:30)
[2018-11-02] MEDS ORDERED: NITROGLYCERIN (SL) 0.4 MG TAB SL PRN (13:30)
[2018-11-02] MEDS ORDERED: ALBUTEROL/IPRATROPIUM (NEB) 3 ML AMP HHN PRN (13:30)
[2018-11-02] MEDS ORDERED: morphine 2 MG INJ IV PRN (13:30)
[2018-11-02] MEDS ORDERED: hydrALAzine 20 MG INJ IV PRN (13:30)
[2018-11-02] MEDS ORDERED: MAGNESIUM HYDROXIDE 30ML CUP PO PRN (13:30)
[2018-11-02] MEDS ORDERED: HYDROCODONE/APAP (5/325) TAB PO PRN (13:30)
[2018-11-02] MEDS ORDERED: FENTAnyl (DRIP) 1000 mcg/100mL 100 ML IV ONE (13:30)
[2018-11-02] MEDS ORDERED: GLUCAGON 1 MG INJ IM PRN (13:30)
[2018-11-02] MEDS ORDERED: DOCUSATE SODIUM 100 MG CAP PO PRN (13:30)
[2018-11-02] MEDS ORDERED: LORAZEPAM 2 MG INJ IV PRN (13:30)
[2018-11-02] MEDS: ALBUTEROL/IPRATROPIUM (NEB) 3 ML AMP HHN SCH ×2 (15:00→19:56)
[2018-11-02] MEDS ORDERED: RIVAROXABAN 20 MG TABLET PO SCH (17:35)
[2018-11-02] MEDS: METHYLPREDNISOLONE 40 MG INJ IV SCH ×2 (17:44→22:28)
[2018-11-02] MEDS: PROPOFOL 100 ML IV SCH ×2 (17:54→20:55)
[2018-11-02] MEDS: INSULIN ASPART [NOVOLOG] 3 ML PEN SC SCH ×2 (18:47→20:52)
[2018-11-02] MEDS: FENTAnyl (DRIP) 1000 mcg/100mL 100 ML IV SCH (18:48)
[2018-11-02] MEDS ORDERED: SUCCINYLCHOLINE CHLORIDE 100 MG/5 ML SYG IV ONE (20:00)
[2018-11-02] MEDS ORDERED: ATROPINE 1 MG/10 ML SYRINGE ONE (20:00)
[2018-11-02] MEDS ORDERED: ATORVASTATIN 80 MG TAB PO SCH (21:00)
[2018-11-03] VITALS (56 sets, daily range): BP systolic 89–135; BP diastolic 57–101; PULSE 60–74; RESP 13–23
[2018-11-03] MEDS: INSULIN ASPART [NOVOLOG] 3 ML PEN SC SCH ×6 (01:08→20:18)
[2018-11-03] MEDS: PROPOFOL 100 ML IV SCH ×7 (01:10→21:44)
[2018-11-03] MEDS ORDERED: ACCU-CHEK XX SCH (02:00)
[2018-11-03] MEDS: METHYLPREDNISOLONE 40 MG INJ IV SCH ×3 (05:19→21:45)
[2018-11-03] MEDS: PANTOPRAZOLE 40 MG INJ IV SCH (05:19)
[2018-11-03] MEDS ORDERED: MAGNESIUM HYDROXIDE 30ML CUP NGT PRN (08:00)
[2018-11-03] MEDS ORDERED: DOCUSATE SODIUM 10 MG/ML (10ML CUP) NGT PRN (08:00)
[2018-11-03] MEDS: IPRATROPIUM (HFA) 12.9 GM INHALER INH SCH ×3 (08:29→19:20)
[2018-11-03] MEDS: ALBUTEROL HFA 8 GM INHALER INH SCH ×3 (08:30→19:20)
[2018-11-03] MEDS ORDERED: NEBIVOLOL 5 MG TAB PO SCH (09:00)
[2018-11-03] MEDS ORDERED: NA POLYST SULFON 15 GM/60 ML BTL NGT ONE (10:00)
[2018-11-03] MEDS ORDERED: HEPARIN 1000 UNITS/ML 10 ML INJ IV PRN (10:00)
[2018-11-03] MEDS: NEBIVOLOL 5 MG TAB NGT SCH (10:58)
[2018-11-03] MEDS: LEVOFLOXACIN 750MG/D5W (PMX) 150 ML IVPB SCH (10:59)
[2018-11-03] MEDS: FUROSEMIDE 40 MG INJ IV SCH (10:59)
[2018-11-03] MEDS: HEPARIN 25000 UNITS/250 ML 250 ML IV SCH (11:06)
[2018-11-03] MEDS ORDERED: LIDOCAINE 1% (MPF) 5 ML VIAL SC ONE (11:30)
[2018-11-03] MEDS ORDERED: ACETAMINOPHEN 325 MG TAB NGT PRN (13:30)
[2018-11-03] MEDS: ASPIRIN 81 MG TAB NGT SCH (14:15)
[2018-11-03] MEDS: FENTAnyl (DRIP) 1000 mcg/100mL 100 ML IV SCH (14:18)
[2018-11-03] MEDS ORDERED: RIVAROXABAN 20 MG TABLET NGT SCH (17:35)
[2018-11-03] MEDS ORDERED: INSULIN GLARGINE [LANTus] (100 UNITS/ML) SYG SC SCH (20:00)
[2018-11-03] MEDS: INSULIN GLARGINE [LANTus] (100 UNITS/ML) SYG SC SCH (20:15)
[2018-11-03] MEDS ORDERED: ATORVASTATIN 80 MG TAB NGT SCH (21:00)
[2018-11-04] VITALS (35 sets, daily range): BP systolic 101–179; BP diastolic 63–112; PULSE 58–89; RESP 13–28
[2018-11-04] MEDS: INSULIN ASPART [NOVOLOG] 3 ML PEN SC SCH ×6 (00:44→20:26)
[2018-11-04] MEDS ORDERED: ACCU-CHEK XX SCH (02:00)
[2018-11-04] MEDS: IPRATROPIUM (HFA) 12.9 GM INHALER INH SCH ×2 (02:30→07:59)
[2018-11-04] MEDS: ALBUTEROL HFA 8 GM INHALER INH SCH ×2 (02:31→08:00)
[2018-11-04] MEDS: PROPOFOL 100 ML IV SCH ×2 (03:17→07:20)
[2018-11-04] MEDS: METHYLPREDNISOLONE 40 MG INJ IV SCH ×3 (05:16→21:48)
[2018-11-04] MEDS: PANTOPRAZOLE 40 MG INJ IV SCH (05:16)
[2018-11-04] MEDS: HEPARIN 25000 UNITS/250 ML 250 ML IV SCH (07:17)
[2018-11-04] MEDS: FUROSEMIDE 40 MG INJ IV SCH (08:50)
[2018-11-04] MEDS: ASPIRIN 81 MG TAB NGT SCH (08:50)
[2018-11-04] MEDS: NEBIVOLOL 5 MG TAB NGT SCH (08:50)
[2018-11-04] MEDS ORDERED: FENTAnyl (DRIP) 1000 mcg/100mL 100 ML IV SCH (09:30)
[2018-11-04] MEDS ORDERED: DOCUSATE SODIUM 100 MG CAP PO PRN (13:30)
[2018-11-04] MEDS ORDERED: ACETAMINOPHEN 325 MG TAB PO PRN (13:30)
[2018-11-04] MEDS ORDERED: MAGNESIUM HYDROXIDE 30ML CUP PO PRN (13:30)
[2018-11-04] MEDS: ATORVASTATIN 80 MG TAB PO SCH (20:23)
[2018-11-04] MEDS: INSULIN GLARGINE [LANTus] (100 UNITS/ML) SYG SC SCH (20:24)
[2018-11-05] VITALS (30 sets, daily range): BP systolic 136–169; BP diastolic 67–103; PULSE 63–79; RESP 12–22
[2018-11-05] MEDS: HEPARIN 25000 UNITS/250 ML 250 ML IV SCH ×2 (00:24→16:32)
[2018-11-05] MEDS ORDERED: PHENYLephrine 20MG IN 250 ML 250 ML IV SCH (01:30)
[2018-11-05] MEDS: INSULIN ASPART [NOVOLOG] 3 ML PEN SC SCH ×6 (02:13→22:00)
[2018-11-05] MEDS: PANTOPRAZOLE (EC) 40 MG TAB PO SCH (05:36)
[2018-11-05] MEDS: METHYLPREDNISOLONE 40 MG INJ IV SCH ×2 (05:36→21:00)
[2018-11-05] MEDS ORDERED: LANSOPRAZOLE 30 MG CAP NGT SCH (06:00)
[2018-11-05] MEDS: FUROSEMIDE 40 MG INJ IV SCH (09:00)
[2018-11-05] MEDS: LEVOFLOXACIN 750MG/D5W (PMX) 150 ML IVPB SCH (09:01)
[2018-11-05] MEDS: ASPIRIN 81 MG TAB PO SCH (09:01)
[2018-11-05] MEDS: NEBIVOLOL 5 MG TAB PO SCH (09:01)
[2018-11-05] MEDS: INSULIN GLARGINE [LANTus] (100 UNITS/ML) SYG SC SCH (20:00)
[2018-11-05] MEDS: ATORVASTATIN 80 MG TAB PO SCH (21:00)
[2018-11-05] MEDS ORDERED: ZOLPIDEM 5 MG TAB PO PRN (23:30)
[2018-11-06] MEDS: INSULIN ASPART [NOVOLOG] 3 ML PEN SC SCH ×5 (02:53→17:50)
[2018-11-06 03:20] VITALS: BP 133/77; PULSE 71; RESP 17
[2018-11-06] MEDS: PANTOPRAZOLE (EC) 40 MG TAB PO SCH (06:02)
[2018-11-06 07:06] VITALS: BP 150/76; PULSE 76; RESP 18
[2018-11-06] MEDS: FUROSEMIDE 40 MG INJ IV SCH (08:51)
[2018-11-06] MEDS: ASPIRIN 81 MG TAB PO SCH (08:52)
[2018-11-06] MEDS: METHYLPREDNISOLONE 40 MG INJ IV SCH (08:52)
[2018-11-06] MEDS: NEBIVOLOL 5 MG TAB PO SCH (08:53)
[2018-11-06 11:04] VITALS: BP 130/75; PULSE 79; RESP 18
[2018-11-06] MEDS: HEPARIN 25000 UNITS/250 ML 250 ML IV SCH (11:51)
[2018-11-06 15:02] VITALS: BP 160/79; PULSE 89; RESP 19
[2018-11-07] MEDS ORDERED: CLOPIDOGREL 75 MG TAB PO SCH (09:00)
[2018-11-07] MEDS ORDERED: LEVOFLOXACIN 750 MG TABLET PO SCH (09:00)
== END 2018-11-06 19:38 | disposition home health service (06) | DRG 208 ==
LOC: E/R 10:20 → ICU 12:33 → EDBEDREQSVC 13:08 → EDBEDREQ 13:08 → 6WM 11-05 19:15
PROVIDERS: ADMIT Hospitalist; ATTEND Hospitalist
PROC: 5A1945Z Respiratory Ventilation, 24-96 Consecutive Hours (ICD-10-PCS; principal; 2018-11-02)
PROC: 0BH17EZ Insertion of Endotracheal Airway into Trachea, Via Natural or Artificial Opening (ICD-10-PCS; 2018-11-02)
PROC: 05HY33Z Insertion of Infusion Device into Upper Vein, Percutaneous Approach (ICD-10-PCS; 2018-11-03)
DX: J96.01 Acute respiratory failure with hypoxia (principal); I21.4 Non-ST elevation (NSTEMI) myocardial infarction; J44.1 Chronic obstructive pulmonary disease with (acute) exacerbation; N17.9 Acute kidney failure, unspecified; I13.0 Hypertensive heart and chronic kidney disease with heart failure and stage 1 through stage 4 chronic kidney disease, or unspecified chronic kidney disease; J96.02 Acute respiratory failure with hypercapnia; E11.22 Type 2 diabetes mellitus with diabetic chronic kidney disease; N18.9 Chronic kidney disease, unspecified; Z85.118 Personal history of other malignant neoplasm of bronchus and lung; I25.10 Atherosclerotic heart disease of native coronary artery without angina pectoris; I25.2 Old myocardial infarction; E78.00 Pure hypercholesterolemia, unspecified; Z86.718 Personal history of other venous thrombosis and embolism; Z79.01 Long term (current) use of anticoagulants; Z90.2 Acquired absence of lung [part of]; I50.9 Heart failure, unspecified; I51.7 Cardiomegaly; Z86.73 Personal history of transient ischemic attack (TIA), and cerebral infarction without residual deficits; D69.6 Thrombocytopenia, unspecified; R31.9 Hematuria, unspecified; Z95.828 Presence of other vascular implants and grafts; E11.65 Type 2 diabetes mellitus with hyperglycemia
CPT/HCPCS: 31500; 36415; 36569; 36600; 70450; 71045; 71275; 76775; 76937; 80048; 80061; 80307; 81001; 81003; 82550; 82553; 82570; 82803; 82962; 83036; 83605; 83735; 84100; 84439; 84443; 84484; 85014; 85018; 85025; 85610; 85730; 87081; 92610; 93005; 93971; 94002; 94003; 94640; 94660; 94664; 94770; 96361; 96374; 96375; 97116; 97163; 97165; 97530; 97535; C9113; J0461; J1170; J1644; J1815; J1940; J1956; J2060; J2405; J2920; J2930; J3010; J7030; Q9967